=== PATIENT | male | born 1955 | race Hispanic/Latino ===

== ENCOUNTER 2019-02-27 11:08 | Inpatient (IN) | payer BC, OTHER ==
[2019-02-27 11:34] VITALS: BMI 24.2
[2019-02-27] MEDS ORDERED: Magnesium Sulfate 2 gm/50 ml 2 GM/50 ML BAG IVPB ONE (11:35)
[2019-02-27] MEDS: Albuterol-Ipratrop 3 mg / 0.5 (3 ml) UD IH SCH ×4 (11:45→19:56)
--- NOTE | 2019-02-27 11:50 | ED PDOC ---
Arrival/HPI - General Chief Complaint: Shortness Of Breath Time Seen by Provider: 02/27/19 11:20 Historian: Patient - History of Present Illness Narrative History of Present Illness (Text): 02/27/19 11:56 63 year old male, with a past medical history of COPD, Kidney cancer (surgery scheduled March 16), who presents to the emergency department complaining of shortness of breath and a productive cough for the past couple of days. Patient reports constant coughing after taking a couple of breaths and states, "mucous never goes away". He endorses taking a nebulizer at home, with no relief. Patient reports he was referred to the emergency department by his PCP, Dr. Baltazar. He denies any fever, chills, headaches, dizziness, nausea, vomiting, chest pain, or any other complaints. Patient was a previous smoker (20 years). PCP: Pranav Baltazar M.D Time/Duration: < week Symptom Onset: Gradual Symptom Course: Unchanged Activities at Onset: Light Context: Home Past Medical History - Provider Review Nursing Documentation Reviewed: Yes - Infectious Disease Hx of Infectious Diseases: None - Cardiac Hx Hypertension: Yes - Pulmonary Hx Chronic Obstructive Pulmonary Disease (COPD): Yes - Renal Other/Comment: kidney transplant - Endocrine/Metabolic Hx Endocrine Disorders: No - Hematological/Oncological Hx Cancer: Yes (Colon) - Psychiatric Hx Psychophysiologic Disorder: No Hx Substance Use: No - Surgical History Hx Kidney Transplant: Yes - Anesthesia Hx Anesthesia: Yes Hx Anesthesia Reactions: No - Suicidal Assessment Feels Threatened In Home Enviroment: No Family/Social History - Physician Review Nursing Documentation Reviewed: Yes Family/Social History: Unknown Family HX Smoking Status: Unknown If Ever Smoked Hx Alcohol Use: No Hx Substance Use: No Hx Substance Use Treatment: No Allergies/Home Meds Allergies/Adverse Reactions: Allergies No Known Allergies Allergy (Verified 02/27/19 15:20) Home Medications: Home Meds Medication Instructions Recorded Confirmed Finasteride [Proscar] 5 mg PO DAILY 02/27/19 02/27/19 Guaifenesin/Hydrocodone [Obredon 118 ml PO DAILY 02/27/19 02/27/19 200 mg/5 ml-2.5 mg/5 ml 118 ml] Omeprazole 20 mg PO DAILY 02/27/19 02/27/19 Simvastatin [Zocor] 20 mg PO DAILY 02/27/19 02/27/19 Tacrolimus [Prograf] 1 mg PO QPM 02/27/19 02/27/19 Tacrolimus [Prograf] 2 mg PO QAM 02/27/19 02/27/19 Tamsulosin [Flomax] 0.4 mg PO DAILY 02/27/19 02/27/19 Valsartan [Diovan] 80 mg PO DAILY 02/27/19 02/27/19 amLODIPine [Norvasc] 5 mg PO BID 02/27/19 02/27/19 predniSONE [predniSONE Tab] 5 mg PO DAILY 02/27/19 02/27/19 Review of Systems - Physician Review All systems were reviewed & negative as marked: Yes - Review of Systems Constitutional: absent: Fevers Respiratory: SOB, Cough Cardiovascular: absent: Chest Pain Gastrointestinal: absent: Abdominal Pain, Diarrhea, Nausea, Vomiting Musculoskeletal: absent: Back Pain, Neck Pain Neurological: absent: Headache, Dizziness Endocrine: absent: Diaphoresis Physical Exam Vital Signs Reviewed: Yes Vital Signs Temp Pulse Resp BP Pulse Ox 02/27/19 11:24 99.4 F 103 H 18 143/72 95 Temperature: Afebrile Blood Pressure: Normal Pulse: Tachycardic Respiratory Rate: Normal Appearance: Positive for: Well-Appearing, Non-Toxic, Comfortable Pain Distress: None Mental Status: Positive for: Alert and Oriented X 3 - Systems Exam Head: Present: Atraumatic, Normocephalic Pupils: Present: PERRL Extroacular Muscles: Present: EOMI Conjunctiva: Present: Normal Mouth: Present: Moist Mucous Membranes Neck: Present: Normal Range of Motion Respiratory/Chest: Present: Rhonchi (Rhonchi on left base). No: Respiratory Distress, Accessory Muscle Use Cardiovascular: Present: Regular Rate and Rhythm, Normal S1, S2. No: Murmurs Abdomen: No: Tenderness, Distention, Peritoneal Signs Back: Present: Normal Inspection Upper Extremity: Present: Normal Inspection. No: Cyanosis, Edema Lower Extremity: Present: Normal Inspection. No: Edema Neurological: Present: GCS=15, CN II-XII Intact, Speech Normal Skin: Present: Warm, Dry, Normal Color. No: Rashes Psychiatric: Present: Alert, Oriented x 3, Normal Insight, Normal Concentration Medical Decision Making ED Course and Treatment: 02/27/19 11:47 Impression: 63 year old male presents to the emergency department complaining of SOB, and a productive cough x couple of days. Differential Diagnosis included but are not limited to: Plan: -- EKG -- Labs -- Chest X-ray -- Urinalysis -- Albuterol -- Magnesium sulfate -- SOLU-Medrol -- Blood culture -- Reassess and disposition Prior Visits: Notes and results from previous visits were reviewed. Progress Notes: 02/27/19 11:53 EKG reviewed, shows: Sinus tachycardia at 103, normal axis. 02/27/19 13:27 Spoke with Pranav Baltazar M.D, who is aware and agrees with the plan to admit patient. 02/27/19 13:34 CT chest reviewed by radiologist, shows: - There is a 6 cm diameter heterogeneous mass in the left kidney suspicious for renal neoplasm. There are no prior studies for comparison - No evidence of pulmonary embolus - There is linear consolidation or scarring at the right lung base. There is a mildly enlarged right hilar lymph node. Chest X-Ray reviewed by radiologist, shows: - Curvilinear opacity at the right lung base possibly related to pneumonia. Recommend correlation with CTA chest scheduled to follow. - RAD Interpretation Radiology Orders: 02/27/19 11:34 CHEST PORTABLE [RAD] Stat - Medication Orders Current Medication Orders: Albuterol/Ipratropium (Duoneb 3 Mg/0.5 Mg (3 Ml) Ud) 3 ml IH Q15M ROSALES Stop: 02/27/19 12:16 Magnesium Sulfate (Magnesium Sulfate 2 Gm/50 Ml Water) 2 gm in 50 mls @ 50 mls/hr IVPB ONCE ONE Stop: 02/27/19 12:34 Discontinued Medications Methylprednisolone (Solu-Medrol) 125 mg IVP STAT STA Stop: 02/27/19 11:36 - Scribe Statement The provider has reviewed the documentation as recorded by the Rayray Butler Provider Scribe Attestation: All medical record entries made by the Scribe were at my direction and personally dictated by me. I have reviewed the chart and agree that the record accurately reflects my personal performance of the history, physical exam, medical decision making, and the department course for this patient. I have also personally directed, reviewed, and agree with the discharge instructions and disposition. Disposition/Present on Arrival - Present on Arrival Any Indicators Present on Arrival: No History of DVT/PE: No History of Uncontrolled Diabetes: No Urinary Catheter: No History of Decub. Ulcer: No History Surgical Site Infection Following: None - Disposition Have Diagnosis and Disposition been Completed?: Yes Diagnosis: COPD exacerbation Disposition: HOSPITALIZED Disposition Time: 13:00 Condition: FAIR
[2019-02-27 12:15] LABS: HEMOGLOBIN 12.9 g/dL (14.0-18.0); LYMPH # 1.1 (1.2-3.4); LYMPH % 7.3 % (22.0-35.0); MEAN CELL VOLUME 83.6 fl (80.0-105.0); MEAN CORPUSCULAR HEMOGLOBIN 27.9 pg (25.0-35.0); MEAN CORPUSCULAR HGB CONC 33.3 g/dl (31.0-37.0); MEAN PLATELET VOLUME 9.3 fl (7.0-11.0); MONO # 1.2 (0.1-0.6); MONO % 7.5 % (1.0-6.0); RBC 4.63 10^6/uL (3.5-6.1); RED CELL DISTRIBUTION WIDTH 13.9 % (11.5-14.5); WHITE BLOOD COUNT 15.7 10^3/uL (4.5-11.0)
[2019-02-27 12:26] LABS: ALB/GLOB RATIO 1.3 (1.1-1.8); ALBUMIN 4.2 g/dL (3.0-4.8); ALT/SGPT 16 U/L (7-56); AST/SGOT 24 U/L (17-59); BLOOD UREA NITROGEN 26 mg/dL (7-21); CALCIUM 9.3 mg/dL (8.4-10.5); GFR NON-AFRICAN AMERICAN > 60
[2019-02-27 12:38] LABS: B-TYPE NATRIURETIC PEPTIDE 178 pg/mL (0-450); TROPONIN I < 0.01 ng/mL
[2019-02-27] MEDS ORDERED: Iohexol 350 MG/100 ML VIAL ONE (12:46)
--- NOTE | 2019-02-27 13:02 | RAD ---
HISTORY: cough r/o infiltrate COMPARISON: Chest x-ray performed 12/04/12 TECHNIQUE: Chest, one view. FINDINGS: LUNGS: Curvilinear opacity at the right lung base possibly related to pneumonia. PLEURA: No significant pleural effusion identified. No definite pneumothorax . CARDIOVASCULAR: The cardiomediastinal silhouette appears within normal limits of size. Faint atherosclerotic calcification present. OSSEOUS STRUCTURES: No acute osseous abnormality identified. VISUALIZED UPPER ABDOMEN: Unremarkable. OTHER FINDINGS: None. IMPRESSION: Curvilinear opacity at the right lung base possibly related to pneumonia. Recommend correlation with CTA chest scheduled to follow.
--- NOTE | 2019-02-27 13:22 | CT ---
Date of service: 02/27/2019 PROCEDURE: CT Chest with contrast (Pulmonary Angiogram) HISTORY: SOB r/o PE - h/o colon cancer COMPARISON: None available. TECHNIQUE: Axial computed tomography images were obtained of the chest in the pulmonary arterial phase of enhancement. Coronal and sagittal reformatted images were created and reviewed. Intravenous contrast dose: 100 cc of Omni 350 Radiation dose: Total exam DLP = 425.15 mGy-cm. This CT exam was performed using one or more of the following dose reduction techniques: Automated exposure control, adjustment of the mA and/or kV according to patient size, and/or use of iterative reconstruction technique. FINDINGS: PULMONARY ARTERIES: Unremarkable. No pulmonary embolism. AORTA: No acute findings. No thoracic aortic aneurysm. Aortic and coronary artery calcification LUNGS: There is linear consolidation or scarring at the right lung base. There is a mildly enlarged right hilar lymph node PLEURAL SPACES: Unremarkable. No effusion or pneumothorax. HEART: Unremarkable. No cardiomegaly. No significant pericardial effusion. LYMPH NODES: No lymphadenopathy. BONES, CHEST WALL: Unremarkable. No fracture or destructive lesion OTHER FINDINGS: There is a 6 cm diameter heterogeneous mass in the left kidney suspicious for renal neoplasm. There are no prior studies for comparison IMPRESSION: There is a 6 cm diameter heterogeneous mass in the left kidney suspicious for renal neoplasm. There are no prior studies for comparison No evidence of pulmonary embolus There is linear consolidation or scarring at the right lung base. There is a mildly enlarged right hilar lymph node
[2019-02-27] MEDS ORDERED: cefTRIAXone 1 gm 1 GM/100 ML BAG IVPB STA (13:29)
[2019-02-27] MEDS ORDERED: Azithromycin 500MG/NS 250ml 500 MG/250 ML BAG IVPB STA (13:29)
--- NOTE | 2019-02-27 15:37 | CARD ---
APPROVED REPORT Date of service: 02/27/2019 EKG Measurement Heart [id number] CT [id number] [id number] <Conclusion> Sinus tachycardia Inferior infarct, age undetermined Abnormal ECG
[2019-02-27] MEDS ORDERED: Pneumococcal 23-Valent Vaccine IM ONE (19:31)
[2019-02-27] MEDS ORDERED: Influenza Vaccine 60 mcg/0.5 mL SYR (4YR UP) IM ONE (19:31)
[2019-02-28] MEDS: Albuterol-Ipratrop 3 mg / 0.5 (3 ml) UD IH SCH ×4 (01:10→21:10)
--- NOTE | 2019-02-28 02:20 | HP ---
DATE OF EXAM: 02/27/2019 HISTORY OF PRESENT ILLNESS: The patient is a 63-year-old white male seen in the office today and sent to the emergency room. The patient has approximately 1 to 2 week history of severe fatigue, severe cough, sputum production, dyspnea on exertion . The patient recently was found by Dr. Stevens on colonoscopy to have a transverse colon mass. PAST MEDICAL HISTORY: The patient has a history of a nephrectomy and renal failure and transplant. The patient has a history of COPD and asthma in the past and mild hypertension in the past. MEDICATIONS: The patient has been taking Flomax, amlodipine, albuterol, and losartan at home. SOCIAL HISTORY: The patient is a nonsmoker and nondrinker. He is taking medication for prevention of kidney transplant rejection. REVIEW OF SYSTEMS: CONSTITUTIONAL: Positive for shortness of breath, cough, sputum production, and fatigue. CARDIAC: Negative for palpitation or chest pain. GASTROINTESTINAL: Negative for nausea, vomiting, or diarrhea. GENITOURINARY: Negative for frequency, urgency, or hematuria. NEUROLOGIC: Negative for syncope, headache, or dizziness. PHYSICAL EXAMINATION: GENERAL: The patient is a poorly developed thin white male in moderate respiratory distress. HEENT: Essentially within normal limits. HEART: Regular sinus rhythm without S3, S4 or murmur. CHEST: Show rhonchi at both bases. Decreased breath sounds at both bases. Wheezing bilaterally. ABDOMEN: Benign. Liver is palpable, right lower quadrant kidney transplant. Abdomen is soft. Bowel sounds are normoactive. EXTREMITIES: Without cyanosis, clubbing, or edema. NEUROLOGIC: Grossly intact. IMPRESSION AND PLAN: This is a 63-year-old white male presenting with a new renal mass, history of kidney transplant, transverse colon carcinoma, cough with sputum production, shortness of breath, chronic obstructive pulmonary disease, hypertension, renal insufficiency with possible pneumonia and impending respiratory failure. Pranav Baltazar MD
[2019-02-28] MEDS: Pantoprazole 20 mg EC Tab PO SCH (06:54)
[2019-02-28] MEDS ORDERED: Azithromycin 250 MG in Sodium Chloride 0.9% 250 ML IVPB SCH (10:00)
[2019-02-28] MEDS ORDERED: cefTRIAXone 1 gm 1 GM/100 ML BAG IVPB SCH (10:00)
--- NOTE | 2019-02-28 12:30 | CP.PCM.CON ---
History of Present Illness - History of Present Illness History of Present Illness: General Surgery Consult note for Dr. Bowden-Dinorah Mckee, PGY-2 Pt seen/examined at bedside 63M w/hx of renal failure s/p R renal transplant and transverse colon mass recently found on colonoscopy (02/03). Pt reports already being scheduled for surgery with Dr. Bowden for transverse colon mass excision, however was admitted to hospital for severe weakness, fatigue, SOB, and CENTENO. Pt reports intentional wt loss of 7-8 lbs over past month due to dietary changes, states that his stool caliber is thinner than normal. Denies F & C, constipation, diarrhea, back pain, abdominal pain, N & V, CP, night sweats, unintentional wt loss, numbness or tingling, changes in urinary habits, melena, hematochezia, hematuria. CT chest with findings of 6cm L renal mass. PMH: Renal failure (b/L), Hx L adrenal mass, COPD, HTN, BPH, HLD PSH: Right pelvic renal transplant, L adrenal mass excision, Right ventral hernia repair All: NKDA SH: Hx of tobacco use- 2ppd x ~20 yrs, quit in 1990, ETOH use: 2-3 beers weekly, denies illicit drugs FH: Adopted- biological father and mother both from lung issues, brother had early [place] GI: Stevens PMD: Delaney Review of Systems - Review of Systems All systems: reviewed and no additional remarkable complaints except - Constitutional Constitutional: Fatigue, Weight Loss (intentional). absent: Chills, Fever, Night Sweats, Weight Gain - EENT Nose/Mouth/Throat: absent: Neck Pain - Cardiovascular Cardiovascular: Dyspnea on Exertion. absent: Chest Pain, Diaphoresis - Respiratory Respiratory: Cough, Dyspnea, Dyspnea on Exertion - Gastrointestinal Gastrointestinal: Change in Stool Character. absent: Abdominal Pain, Belching, Bloating, Constipation, Diarrhea, Hematemesis, Hematochezia, Loose Stools, Melena, Nausea, Vomiting - Genitourinary Genitourinary: Change in Urinary Stream - Musculoskeletal Musculoskeletal: absent: Back Pain - Integumentary Integumentary: absent: Rash - Neurological Neurological: Abnormal Hearing (decreased, has hearing aides) - Psychiatric Psychiatric: absent: Abnormal Sleep Pattern Past Patient History - Infectious Disease Hx of Infectious Diseases: None - Past Social History Smoking Status: Unknown If Ever Smoked - CARDIAC Hx Hypertension: Yes - PULMONARY Hx Chronic Obstructive Pulmonary Disease (COPD): Yes - NEUROLOGICAL Hx Neurological Disorder: Yes - HEENT Hx HEENT Problems: Yes Hx Deafness: Yes (LEFT EAR) - RENAL Other/Comment: kidney transplant - ENDOCRINE/METABOLIC Hx Endocrine Disorders: No - HEMATOLOGICAL/ONCOLOGICAL Hx Cancer: Yes (Colon) - INTEGUMENTARY Hx Dermatological Problems: No - MUSCULOSKELETAL/RHEUMATOLOGICAL Hx Musculoskeletal Disorders: No Hx Falls: No - GASTROINTESTINAL Hx Gastrointestinal Disorders: Yes (COLON CA) - GENITOURINARY/GYNECOLOGICAL Hx Genitourinary Disorders: Yes Hx Prostate Problems: Yes (BPH) - PSYCHIATRIC Hx Psychophysiologic Disorder: No Hx Substance Use: No - SURGICAL HISTORY Hx Kidney Transplant: Yes - ANESTHESIA Hx Anesthesia: Yes Hx Anesthesia Reactions: No Meds Allergies/Adverse Reactions: Allergies Allergy/AdvReac Type Severity Reaction Status Date / Time No Known Allergies Allergy Verified 02/27/19 15:20 - Medications Medications: Current Medications Albuterol/Ipratropium (Duoneb 3 Mg/0.5 Mg (3 Ml) Ud) 3 ml IH [id number] [facility] Last Admin: 02/28/19 07:24 Dose: 3 ml Amlodipine Besylate (Norvasc) 5 mg PO 0600 ROSALES Last Admin: 02/28/19 05:59 Dose: 5 mg Amlodipine Besylate (Norvasc) 5 mg PO QPM ROSALES Last Admin: 02/27/19 22:12 Dose: Not Given Atorvastatin Calcium (Lipitor) 10 mg PO DIN ROSALES Doxycycline Hyclate (Doryx) 100 mg PO Q12 ROSALES; Protocol Stop: 03/09/19 12:07 Finasteride (Proscar) 5 mg PO QPM ROSALES Last Admin: 02/27/19 21:37 Dose: 5 mg Cefepime HCl (Maxipime 1gm) 1 gm in 100 mls @ 100 mls/hr IVPB Q8 ROSALES; Protocol Stop: 03/09/19 12:07 Losartan Potassium (Cozaar) 50 mg PO QPM ROSALES Last Admin: 02/27/19 21:38 Dose: 50 mg Methylprednisolone (Solu-Medrol) 60 mg IVP Q12 ROSALES Last Admin: 02/28/19 10:54 Dose: 60 mg Pantoprazole Sodium (Protonix Ec Tab) 20 mg PO ACB [facility]ALES Last Admin: 02/28/19 06:54 Dose: 20 mg Prednisone (Prednisone Tab) 5 mg PO 0600 [facility] Last Admin: 02/28/19 06:01 Dose: 5 mg Tacrolimus (Prograf Cap) 1 mg PO QPM [facility] Last Admin: 02/27/19 21:37 Dose: 1 mg Tacrolimus (Prograf Cap) 2 mg PO 0600 [facility] Last Admin: 02/28/19 06:01 Dose: 2 mg Tamsulosin HCl (Flomax) 0.4 mg PO QPM [facility] Last Admin: 02/27/19 21:37 Dose: 0.4 mg Physical Exam - Constitutional Appears: Non-toxic, No Acute Distress - Head Exam Head Exam: ATRAUMATIC, NORMAL INSPECTION, NORMOCEPHALIC - Eye Exam Eye Exam: EOMI, Normal appearance - ENT Exam ENT Exam: Mucous Membranes Moist, Normal Exam - Neck Exam Neck exam: Positive for: Full Rom, Normal Inspection - Respiratory Exam Respiratory Exam: Clear to Auscultation Bilateral, NORMAL BREATHING PATTERN. absent: Accessory Muscle Use, Rales, Wheezes - Cardiovascular Exam Cardiovascular Exam: REGULAR RHYTHM, +S1, +S2 - GI/Abdominal Exam GI & Abdominal Exam: Soft. absent: Distended, Firm, Guarding, Rigid, Tenderness Additional comments: well healed midline scar, well healed Right abdominal scars x 2 Results - Vital Signs Recent Vital Signs: Last Vital Signs Temp 97.4 F L 02/28/19 06:00 Pulse 83 02/28/19 06:00 Resp 20 02/28/19 06:00 BP 105/67 02/28/19 06:00 Pulse Ox 95 02/28/19 06:00 - Labs Result Diagrams: 02/27/19 11:50 02/27/19 11:50 Labs: Laboratory Results - last 24 hr 02/27/19 11:50 Sodium 137 Potassium 4.2 Chloride 104 Carbon Dioxide 19 L Anion Gap 17 BUN 26 H Creatinine 1.2 Est GFR ( Amer) > 60 Est GFR (Non-Af Amer) > 60 Random Glucose 139 H Calcium 9.3 Magnesium 1.3 L Total Bilirubin 2.1 H AST 24 ALT 16 Alkaline Phosphatase 96 Lactate Dehydrogenase 439 Total Creatine Kinase 84 Troponin I < 0.01 NT-Pro-B Natriuret Pep 178 Total Protein 7.3 Albumin 4.2 Globulin 3.2 Albumin/Globulin Ratio 1.3 Assessment & Plan - Assessment and Plan (Free Text) Assessment: 63M w/transverse colon mass on colonoscopy and L renal mass of non-functioning kidney Plan: Recommend urology consult for L renal mass As per Dr. Baltazar- Dr. Mechelle Brown consulted- spoke with Dr. Brown, to see the patient 03/01 for evaluation Plan for transverse colon mass surgery after recs from urologist Further care as per primary team DW Dr. Kal Mckee, PGY-2 - Date & Time Date: 02/28/19 Time: 12:45
--- NOTE | 2019-02-28 14:03 | PN ---
DATE: 02/28/2019 SUBJECTIVE: A 63-year-old white male admitted to the hospital with exacerbation of COPD, coughing, sputum production, and shortness of breath. The patient is markedly improved this morning. He still has a productive cough. He is on antibiotics and steroids. The patient does have a lesion, which was found on colonoscopy. The patient also was recently found to have a renal mass. The patient is status post renal transplant. PHYSICAL EXAMINATION: VITAL SIGNS: Stable. ASSESSMENT AND PLAN: Doing well. He is afebrile this morning. We will continue IV antibiotics, bronchodilators, and steroids, and follow the patient and also evaluate the patient for possible nephrectomy and colon resection. Pranav Baltazar MD
--- NOTE | 2019-02-28 14:24 | CON ---
DATE OF CONSULTATION: 02/28/2019 The patient is seen in room 575, bed 1. CHIEF COMPLAINT: Cough and low-grade fever and shortness of breath times several days. HISTORY OF PRESENT ILLNESS: This is a 63-year-old male, who has a history of chronic obstructive lung disease, who had kidney cancer and the patient had nephrectomy. The patient is also with a renal transplant. The renal transplant was 5 years ago, on immunosuppression, and medications of tacrolimus, the patient with chronic obstructive lung disease and hypertension, who is admitted now and found to have pneumonia. Infectious Disease consultation requested. REVIEW OF SYSTEMS: Reveals the patient does have cough and it is nonproductive, and he had no fevers, no chills, no headaches, no dizziness, and no nausea or vomiting. He denies any chest pain. He does have shortness of breath. No abdominal pain or diarrhea. No dysuria or frequency. Review of systems reveals a 12-point review of systems performed. PAST MEDICAL HISTORY: Significant for hypertension and colon cancer. The patient had also nephrectomy and tonsillectomy. The patient is also with BPH. PAST SURGICAL HISTORY: Significant for tonsillectomy. ALLERGIES: THE PATIENT HAS NO KNOWN ALLERGIES. MEDICATIONS: Reviewed, include tacrolimus, prednisone, Diovan, omeprazole, Norvasc. PHYSICAL EXAMINATION: GENERAL: The patient is in bed. The patient's daughter is at the bedside, and his girlfriend is also at the bedside. He is answering questions appropriately. VITAL SIGNS: Temperature of 99.8, blood pressure is 121/71, respiratory rate of 20, heart rate of 93, it was up to 103. HEENT: Examination of HEENT is unremarkable. NECK: Supple. LUNGS: Have decreased breath sounds. HEART: Normal S1, S2. ABDOMEN: Soft, nontender. No organomegaly, no rebound. LABORATORY DATA: Laboratory examination reveals a white count of 15,700, hemoglobin of 12, platelets of 230. Chemistries revealed a BUN of 26, creatinine of 1.2. Microbiology reveals the blood cultures thus far are negative. Dr. Baltazar's history and physical examination is reviewed. Nursing evaluation is reviewed, which includes a colon cancer. The patient had a CAT scan of the chest, which revealed a 6 cm diameter mass in the left kidney suspicious for neoplasm and a linear consolidation in the right lung base, mild enlarged right hilar lymph node. Chest x-ray is reported to be negative. Emergency room chart is reviewed. ASSESSMENT AND PLAN: A 63-year-old male with chronic obstructive lung disease, asthma, hypertension, BPH, renal transplant 5 years ago, who was admitted with cough, tachycardia, leukocytosis, and infiltrate. 1. Sepsis with healthcare-associated pneumonia in an immunocompromised patient. We will treat the patient with Maxipime and doxycycline. The patient has a transverse colon mass and a renal mass requiring surgery for both. We will check blood cultures, sputum cultures, methicillin-resistant Staphylococcus aureus screen, urine for Legionella antigen, procalcitonin, and treat the patient with doxycycline and Maxipime. We will follow with you. Layo Seymour MD
[2019-02-28] MEDS: Cefepime 1gm in NS 100ml 1 GM/100 ML BAG IVPB SCH ×3 (17:15→22:39)
[2019-02-28 19:02] LABS: URINE BILIRUBIN NEGATIVE (NEGATIVE); URINE BLOOD NEGATIVE (NEGATIVE); URINE GLUCOSE (UA) 500 mg/dL (NEGATIVE); URINE LEUKOCYTE ESTERASE NEGATIVE Leu/uL (NEGATIVE); URINE PROTEIN TRACE mg/dL (<30 mg/dL); URINE UROBILINOGEN 0.2 E.U./dL (<1 E.U./dL)
[2019-02-28 19:04] LABS: URINE COLOR YELLOW (YELLOW)
[2019-02-28 19:05] LABS: URINE APPEARANCE CLEAR (CLEAR)
[2019-03-01] MEDS: Albuterol-Ipratrop 3 mg / 0.5 (3 ml) UD IH SCH ×4 (02:00→21:19)
[2019-03-01] MEDS: Cefepime 1gm in NS 100ml 1 GM/100 ML BAG IVPB SCH ×3 (06:03→21:44)
[2019-03-01] MEDS: Pantoprazole 20 mg EC Tab PO SCH (06:38)
--- NOTE | 2019-03-01 08:28 | CP.PCM.PN ---
Subjective - Date & Time of Evaluation Date of Evaluation: 03/01/19 Time of Evaluation: 07:00 - Subjective Subjective: General surgery progress not for Dr. Humberto Mckee, PGY-2 Pt seen/examined at bedside with surgical team Pt reports improved breathing. Denies N & V, F & C, CP, abdominal pain, constipation, diarrhea. Having BMs. Objective - Vital Signs/Intake and Output Vital Signs (last 24 hours): Temp Pulse Resp BP Pulse Ox 97.7 F 80 20 112/56 L 98 03/01/19 06:00 03/01/19 06:00 03/01/19 06:00 03/01/19 06:00 03/01/19 06:00 Intake and Output: 03/01/19 03/01/19 06:59 18:59 Intake Total 120 Balance 120 - Medications Medications: Current Medications Albuterol/Ipratropium (Duoneb 3 Mg/0.5 Mg (3 Ml) Ud) 3 ml IH [id number] ROSALES Last Admin: 03/01/19 08:11 Dose: 3 ml Amlodipine Besylate (Norvasc) 5 mg PO 0600 [facility] Last Admin: 03/01/19 05:59 Dose: 5 mg Amlodipine Besylate (Norvasc) 5 mg PO QPM [facility] Last Admin: 02/28/19 18:03 Dose: 5 mg Atorvastatin Calcium (Lipitor) 10 mg PO DIN [facility]AL[facility] Last Admin: 02/28/19 17:13 Dose: 10 mg Doxycycline Hyclate (Doryx) 100 mg PO Q12 [facility]AL[facility]; Protocol Stop: 03/09/19 12:07 Last Admin: 02/28/19 21:48 Dose: 100 mg Finasteride (Proscar) 5 mg PO QPM [facility] Last Admin: 02/28/19 18:15 Dose: 5 mg Cefepime HCl (Maxipime 1gm) 1 gm in 100 mls @ 100 mls/hr IVPB Q8 [facility]AL[facility]; Protocol Stop: 03/09/19 12:07 Last Admin: 03/01/19 06:03 Dose: 100 mls/hr Losartan Potassium (Cozaar) 50 mg PO QPM [facility] Last Admin: 02/28/19 18:30 Dose: 50 mg Methylprednisolone (Solu-Medrol) 60 mg IVP Q12 [facility] Last Admin: 02/28/19 22:33 Dose: 60 mg Pantoprazole Sodium (Protonix Ec Tab) 20 mg PO ACB [facility] Last Admin: 03/01/19 06:38 Dose: 20 mg Prednisone (Prednisone Tab) 5 mg PO 0600 [facility] Last Admin: 03/01/19 05:59 Dose: 5 mg Tacrolimus (Prograf Cap) 1 mg PO QPM [facility] Last Admin: 02/28/19 18:01 Dose: 1 mg Tacrolimus (Prograf Cap) 2 mg PO 0600 [facility] Last Admin: 03/01/19 06:02 Dose: 2 mg Tamsulosin HCl (Flomax) 0.4 mg PO QPM [facility] Last Admin: 02/28/19 18:31 Dose: 0.4 mg - Labs Labs: 02/27/19 11:50 02/27/19 11:50 - Constitutional Appears: Non-toxic, No Acute Distress - Head Exam Head Exam: ATRAUMATIC, NORMAL INSPECTION, NORMOCEPHALIC - Eye Exam Eye Exam: EOMI, Normal appearance - ENT Exam ENT Exam: Mucous Membranes Moist - Respiratory Exam Respiratory Exam: NORMAL BREATHING PATTERN. absent: Accessory Muscle Use - Cardiovascular Exam Cardiovascular Exam: REGULAR RHYTHM, +S1, +S2 - GI/Abdominal Exam GI & Abdominal Exam: Soft. absent: Distended, Firm, Guarding, Rigid, Tenderness, Mass - Extremities Exam Extremities Exam: Normal Inspection - Neurological Exam Neurological Exam: Alert, Awake, CN II-XII Intact, Oriented x3 - Psychiatric Exam Psychiatric exam: Normal Affect, Normal Mood - Skin Skin Exam: Dry, Intact, Normal Color, Warm Assessment and Plan - Assessment and Plan (Free Text) Assessment: 63M w/transverse colon mass on colonoscopy and L renal mass of non-functioning kidney, stable overnight Plan: FU Uro c/s recs Plan for transverse colon mass surgery after recs from urologist Further care as per primary team DW Dr. Kal Mckee, PGY-2
--- NOTE | 2019-03-01 12:42 | PN ---
DATE: 03/01/2019 SUBJECTIVE: A 63-year-old white male with a history of COPD, status post renal transplant, immunocompromised because of the anti-rejection medications, recently found to have a transverse colon lesion consistent with adenocarcinoma. He also has a 6 cm renal mass in the c[place]il dehe kidney. The patient is here for exacerbation of bronchitis, possible pneumonia, being treated with IV antibiotics, bronchodilators and steroids, doing well, improved, having good night. PHYSICAL EXAMINATION: VITAL SIGNS: Afebrile. Vital signs are stable. CHEST: Has some rhonchi on examination and some wheezing. ASSESSMENT AND PLAN: We will have a Urology consult for possible nephrectomy coordinated with removal of his transverse colon tumor. At this point, continue medications. Also, we will ask for a Pulmonary consult. Pranav Baltazar MD
--- NOTE | 2019-03-01 13:23 | PN ---
DATE: 03/01/2019 SUBJECTIVE: The patient is in bed in no acute distress, nontoxic. PHYSICAL EXAMINATION VITAL SIGNS: On exam temperature is 97, blood pressure is 112/50, respiratory rate 20 and heart rate of 80. HEENT: Unremarkable. NECK: Supple. LUNGS: Have decreased breath sounds. HEART: Normal S1 and S2. ABDOMEN: Soft. LABORATORY EXAMINATION: Reveals a white count of 15,700, hemoglobin of 12, and platelets of 230. Chemistries reveals a BUN of 26 and creatinine of 1.2. Procalcitonin is 0.13. Microbiology reveals the blood cultures are negative. Review of orders reveals the patient to be on p.o. doxycycline and IV cefepime and Solu-Medrol. ASSESSMENT AND PLAN: This is a 63-year-old male with a history of chronic obstructive lung disease, history of kidney cancer, history of nephrectomy, history of renal transplant 5 years ago on immunosuppression and medication tacrolimus, who was admitted with sepsis with healthcare associated pneumonia in a immunocompromised patient on Maxipime, doxycycline day #2. The patient with a transverse colon mass and a renal mass requiring surgery for both and would complete 4 to 7 days of antibiotics and the patient is doing better today. Waiting for final blood culture results, urine Legionella antigen, MRSA screen and sputum culture. Layo Seymour MD
[2019-03-02] MEDS: Albuterol-Ipratrop 3 mg / 0.5 (3 ml) UD IH SCH ×5 (01:40→21:45)
[2019-03-02] MEDS: Cefepime 1gm in NS 100ml 1 GM/100 ML BAG IVPB SCH ×3 (05:11→21:09)
[2019-03-02] MEDS ORDERED: Albuterol-Ipratrop 3 mg / 0.5 (3 ml) UD IH PRN (07:10)
[2019-03-02] MEDS: Budesonide 0.5 mg/2 ml Inhal Susp UD IH SCH ×2 (07:18→21:45)
[2019-03-02 08:02] LABS: HEMOGLOBIN 12.5 g/dL (14.0-18.0); MEAN CELL VOLUME 84.1 fl (80.0-105.0); MEAN CORPUSCULAR HGB CONC 33.2 g/dl (31.0-37.0); MEAN PLATELET VOLUME 9.3 fl (7.0-11.0); RBC 4.47 10^6/uL (3.5-6.1); RED CELL DISTRIBUTION WIDTH 13.8 % (11.5-14.5); WHITE BLOOD COUNT 14.9 10^3/uL (4.5-11.0)
[2019-03-02] MEDS: Pantoprazole 20 mg EC Tab PO SCH (08:02)
[2019-03-02 08:17] LABS: ALB/GLOB RATIO 1.3 (1.1-1.8); ALBUMIN 3.6 g/dL (3.0-4.8); ALT/SGPT 23 U/L (7-56); AST/SGOT 41 U/L (17-59); BLOOD UREA NITROGEN 29 mg/dL (7-21); CALCIUM 8.9 mg/dL (8.4-10.5); GFR NON-AFRICAN AMERICAN > 60
--- NOTE | 2019-03-02 08:21 | CON ---
DATE: 03/01/2019 PULMONARY CONSULTATION The patient was seen and examined at bedside and we were called to evaluate and treat this patient who was admitted with cough productive of mucopurulent sputum, shortness of breath and abnormalities on the chest x-ray which were confirmed on the CT scan of chest. HISTORY OF PRESENT ILLNESS: A 63-year-old male who is known to Dr. Baltazar from office followup. He has a history of nephrectomy and renal failure. He is status post transplant. He also has a history of asthma and COPD. He complained of increasing shortness of breath, cough productive of purulent sputum for 1-2 weeks. He also had a recent colonoscopy by Dr. Stevens and found to have a mass. SOCIAL HISTORY: Nonsmoker and nondrinker. Never used illicit drugs. MEDICATIONS: He is on Flomax, amlodipine, albuterol, losartan and immunosuppressives tacrolimus. FAMILY HISTORY: Negative for inherited diseases. REVIEW OF SYSTEMS: Conducted by reviewing all sources. CONSTITUTIONAL: Positive for shortness of breath, cough and sputum production. CARDIAC: Negative for chest pain. No palpitation. RESPIRATORY: Shortness of breath, productive cough GASTROINTESTINAL: Recently discovered colon mass. Negative for nausea, vomiting or diarrhea. GENITOURINARY: Negative for frequency, urgency or hematuria. The rest of the systems were reviewed and found to be negative. PHYSICAL EXAMINATION: VITAL SIGNS: Temperature 98.8, respirations 20, blood pressure 134/74, pulse 84 and pulse oxymetry on room air is 94%. HEAD, EARS, NOSE, AND THROAT: Within normal limits. NECK: Supple. There is no jugular vein distensions. CARDIOVASCULAR: Regular rate. S1 and S2. No S3. RESPIRATORY: Few basilar rhonchi, right more than left. No wheezing. GASTROINTESTINAL: Soft and nontender. No organomegaly. Scars from kidney transplant. : Within normal limits EXTREMITIES: No pedal edema. No cyanosis. NEUROLOGIC: No focal deficits. SKIN: Dry; intact RADIOLOGY DATA: I have reviewed the CT scan of chest which reveals normal appearing left lung. There is infiltrate and air bronchogram at very base of the right lung. ASSESSMENT: 1. Right basal pneumonia 2. Exacerbation of COPD 3. Kidney and Colon mass - work-up with PMD, Dr Baltazar Additional data reviewed. Laboratory data reviewed and discussed with Dr. Seymour Infectious Disease. We treating him with double antibiotics for right basal pneumonia which is symptomatic with cough and production of purulent sputum as well as shortness of breath. After 24 hours of treatment, the patient condition has started to improving. We will continue with current recommendation as well as nebulizer treatment. He has several additional problems that requires attention, kidney mass and colon mass. Brooks Batres MD MTDD
--- NOTE | 2019-03-02 08:23 | CP.PCM.PN ---
Subjective - Date & Time of Evaluation Date of Evaluation: 03/02/19 Time of Evaluation: 07:30 - Subjective Subjective: General Surgery progress note for Dr. Bowden Pt seen/examined at bedside with surgical team. Pt is resting comfortably. No complaints at this time. Denies fever, chills, chest pain, sob, abdominal pain, n/v/d, hematochezia, melena. Objective - Vital Signs/Intake and Output Vital Signs (last 24 hours): Temp Pulse Resp BP Pulse Ox 97.6 F 85 20 131/75 95 03/02/19 06:00 03/02/19 06:00 03/02/19 06:00 03/02/19 06:00 03/02/19 06:00 - Medications Medications: Current Medications Albuterol/Ipratropium (Duoneb 3 Mg/0.5 Mg (3 Ml) Ud) 3 ml IH [id number] ROSALES Last Admin: 03/02/19 07:19 Dose: 3 ml Albuterol/Ipratropium (Duoneb 3 Mg/0.5 Mg (3 Ml) Ud) 3 ml IH Q2H PRN PRN Reason: Shortness of Breath Amlodipine Besylate (Norvasc) 5 mg PO 0600 [facility]AL[facility] Last Admin: 03/02/19 05:12 Dose: 5 mg Amlodipine Besylate (Norvasc) 5 mg PO QPM [facility] Last Admin: 03/01/19 18:14 Dose: 5 mg Atorvastatin Calcium (Lipitor) 10 mg PO DIN [facility]AL[facility] Last Admin: 03/01/19 18:13 Dose: 10 mg Budesonide (Pulmicort Respules) 0.5 mg IH [id number] ROSALES Last Admin: 03/02/19 07:18 Dose: 0.5 mg Doxycycline Hyclate (Doryx) 100 mg PO Q12 [facility]ALES; Protocol Stop: 03/09/19 12:07 Last Admin: 03/01/19 21:44 Dose: 100 mg Finasteride (Proscar) 5 mg PO QPM [facility] Last Admin: 03/01/19 18:14 Dose: 5 mg Cefepime HCl (Maxipime 1gm) 1 gm in 100 mls @ 100 mls/hr IVPB Q8 [facility]ALES; Protocol Stop: 03/09/19 12:07 Last Admin: 03/02/19 05:11 Dose: 100 mls/hr Losartan Potassium (Cozaar) 50 mg PO QPM [facility] Last Admin: 03/01/19 18:13 Dose: 50 mg Methylprednisolone (Solu-Medrol) 60 mg IVP Q12 [facility] Last Admin: 03/01/19 21:45 Dose: 60 mg Pantoprazole Sodium (Protonix Ec Tab) 20 mg PO ACB [facility] Last Admin: 03/02/19 08:02 Dose: 20 mg Prednisone (Prednisone Tab) 5 mg PO 0600 [facility] Last Admin: 03/02/19 05:11 Dose: 5 mg Tacrolimus (Prograf Cap) 1 mg PO QPM [facility] Last Admin: 03/01/19 18:14 Dose: 1 mg Tacrolimus (Prograf Cap) 2 mg PO 0600 [facility] Last Admin: 03/02/19 05:11 Dose: 2 mg Tamsulosin HCl (Flomax) 0.4 mg PO QPM [facility] Last Admin: 03/01/19 18:14 Dose: 0.4 mg - Labs Labs: 03/02/19 07:45 03/02/19 07:45 - Constitutional Appears: Non-toxic, No Acute Distress - Head Exam Head Exam: ATRAUMATIC, NORMAL INSPECTION - Eye Exam Eye Exam: EOMI - ENT Exam ENT Exam: Mucous Membranes Moist - Cardiovascular Exam Cardiovascular Exam: REGULAR RHYTHM, +S1, +S2 - GI/Abdominal Exam GI & Abdominal Exam: Soft, Normal Bowel Sounds. absent: Distended, Firm, Guarding, Rigid, Tenderness Additional comments: (+) rlw renal transplant is palpable, nontender - Extremities Exam Extremities Exam: Normal Capillary Refill. absent: Calf Tenderness, Pedal Edema - Neurological Exam Neurological Exam: Alert, Awake - Psychiatric Exam Psychiatric exam: Normal Affect, Normal Mood - Skin Skin Exam: Dry, Normal Color, Warm Assessment and Plan - Assessment and Plan (Free Text) Assessment: 63M w/transverse colon mass on colonoscopy and L renal mass of non-functioning kidney. Plan: Tolerating diet well, hemodynamically stable Follow up Uro consult recs Plan for transverse colon mass surgery after recs from urologist, Dr. Brown. Further care as per primary team Case discussed with Dr. Kal Ravi PGY1 Pager# [phone]
--- NOTE | 2019-03-02 11:10 | PN ---
DATE: 03/02/2019 SUBJECTIVE: The patient appears comfortable at rest. He is not short of breath. OBJECTIVE: VITALS: Temperature is 97.7, pulse 87, respirations 18, blood pressure 120/77. Oxygen saturation on room air 95%. HEENT: Normocephalic, atraumatic. No JVD. CARDIOVASCULAR: Positive S1, S2. No S3 gallop. LUNGS: Scattered bilateral rhonchi and a few wheezes are appreciated. EXTREMITIES: No clubbing, cyanosis, or edema. Calves are nontender to palpation. GASTROINTESTINAL: Abdomen is soft, nontender, and nondistended. Bowel sounds are positive. SKIN: No acute rash. NEUROLOGIC: Exam limited at the present time. IMPRESSION: 1. Acute bronchitis. 2. Chronic obstructive pulmonary disease. 3. Scar - right lower lobe. 4. Colon cancer. 5. Renal mass. PLAN: The patient appears comfortable this morning. He is not short of breath at rest. He does state to increase coughing at times. He does state to feeling much better overall. On physical exam, there is [id number] bronchospasm noted. However, there is no significant alveolar arterial gradient. I will continue the current nebulizer treatments and current intravenous steroids for now. I will also add inhaled Pulmicort. Hopefully, we can start tapering the steroids in the next 24 hours. I did review the CAT scan of the chest - done on 02/27/2019. There is a linear area of consolidation in the right lower lobe - most consistent with scarring. There are no air bronchograms noted. There is no significant lymphadenopathy. There is also a large renal mass. In addition, the procalcitonin done - negative (0.13). I would continue with the antibiotic coverage as per Infectious Disease. Temperatures have fully resolved. Repeat a.m. labs are pending. Inputs by Surgery and Genitourinary are also noted. Clinical status of the patient does appear improved - compared to the initial presentation. However, given the above, the future status/prognosis for this patient does remain guarded. I will discuss the above with Dr. Baltazar. Gonzales Woods MD [facility] # [id number] MTDD
--- NOTE | 2019-03-02 12:16 | PN ---
DATE: 03/02/2019 A 63-year-old white male admitted in the hospital with exacerbation of COPD; possible pneumonia; renal mass; transverse colon mass; history of renal transplant, on immunosuppressive drugs. The patient still has sputum production and cough, but he is afebrile today. Vital signs are stable. His white count is 14,900. His BUN and creatinine is 29 and 0.9. He is afebrile today. His blood pressure 131/75. He still has rales in the right upper and right lower base, but less coughing, less sputum production and he is afebrile. He is walking. Pranav Baltazar MD
--- NOTE | 2019-03-02 14:34 | PCM.URO ---
Urology Progress Note - Objective Lab Studies: Reviewed (full note to be dictatedd we need to see the gu imaging to decide a plan possible renal biopsy vs nephrectomy thanks for gu consult) Lab Results Last 24 Hours: Laboratory Results - last 24 hr 03/01/19 03/02/19 03/02/19 20:07 07:45 07:45 WBC 14.9 H RBC 4.47 Hgb 12.5 L Hct 37.6 L MCV 84.1 MCH 28.0 MCHC 33.2 RDW 13.8 Plt Count 258 MPV 9.3 Sodium 139 Potassium 4.4 Chloride 108 H Carbon Dioxide 21 Anion Gap 15 BUN 29 H Creatinine 0.9 Est GFR ( Amer) > 60 Est GFR (Non-Af Amer) > 60 Random Glucose 209 H Calcium 8.9 Magnesium 1.7 Total Bilirubin 0.4 AST 41 ALT 23 Alkaline Phosphatase 89 Total Protein 6.5 Albumin 3.6 Globulin 2.8 Albumin/Globulin Ratio 1.3 Ur L.pneumophila Ag Negative Intake & Output: Intake & Output 03/01/19 03/02/19 03/02/19 18:59 06:59 18:59 Intake Total 840 Balance 840 Weight 150 lb 12.8 oz Intake: Oral 840 Other: # Voids Urine, Voided 3 2 # Bowel Movements 2 Vital Signs: Vital Signs - 24 hr 03/01/19 03/01/19 03/02/19 18:13 22:00 05:12 Temperature 97.7 F Pulse Rate 93 H 87 87 Respiratory 18 Rate Blood Pressure 127/77 120/77 120/77 O2 Sat by Pulse 95 Oximetry 03/02/19 06:00 Temperature 97.6 F Pulse Rate 85 Respiratory 20 Rate Blood Pressure 131/75 O2 Sat by Pulse 95 Oximetry
--- NOTE | 2019-03-02 20:46 | CON ---
DATE: 03/02/2019 UROLOGY CONSULTATION REASON FOR CONSULTATION: Renal mass. HISTORY OF PRESENT ILLNESS: Mr. Galvez is a very pleasant gentleman who is currently in the hospital under the care of Dr. Baltazar, Urology is consulted regarding the management of "renal mass." Very complicated history, he has a history of adrenal mass that may have been removed, he does not picked out with any kind of cancer that he is back. He is not sure of all those details, will need to check. Right now, he presented that he has colon cancer diagnosed, any kind of surgery with Dr. Bowden on 03/16, but in the meantime, in the workup here on exam "renal mass," Urology is for recommendations. See below. PAST MEDICAL AND SURGICAL HISTORY: He has underlying respiratory difficulty. He has been seen by doctor and his medical doctor is Dr. Baltazar. REVIEW OF SYSTEMS: Listed above significant as noted. SOCIAL HISTORY: He works in a [employer] plant. PHYSICAL EXAMINATION: ABDOMEN: Relatively soft. Not grossly distended. RECTAL: Deferred for now. LABORATORY DATA: See tatiana. DIAGNOSIS: Renal mass in the presence of a colon cancer. PLAN: We have to discuss further options and some possibility to include a biopsy of the kidney to confirm whether it is a renal cell carcinoma or malignancy versus metastatic disease. We also need to evaluate for the possibility for nephrectomy, the possibility open versus robotic and the idea of the stating the patient separate anesthesia sitting versus increased length of time during surgery, redo weigh all these option, again robotic versus nonrobotic and any other important consideration is if the patient previously had an adrenalectomy to weigh this into account and making all recommendations for sparing the adrenal gland. This all need to be elucidated further. From Urology standpoint, we will review films, we will discuss further with Dr. Bowden and Dr. Baltazar. Guido Brown MD
--- NOTE | 2019-03-02 21:29 | CP.PCM.PN ---
Subjective - Date & Time of Evaluation Date of Evaluation: 03/02/19 Time of Evaluation: 07:55 - Subjective Subjective: Afebrile, not in distress. Objective - Vital Signs/Intake and Output Vital Signs (last 24 hours): Temp Pulse Resp BP Pulse Ox 98 F 84 20 144/84 95 03/02/19 15:12 03/02/19 18:05 03/02/19 15:12 03/02/19 18:05 03/02/19 15:12 Intake and Output: 03/02/19 03/03/19 18:59 06:59 Intake Total 600 Balance 600 - Medications Medications: Current Medications Albuterol/Ipratropium (Duoneb 3 Mg/0.5 Mg (3 Ml) Ud) 3 ml IH [id number] ROSALES Last Admin: 03/02/19 13:08 Dose: Not Given Albuterol/Ipratropium (Duoneb 3 Mg/0.5 Mg (3 Ml) Ud) 3 ml IH Q2H PRN PRN Reason: Shortness of Breath Amlodipine Besylate (Norvasc) 5 mg PO 0600 [facility] Last Admin: 03/02/19 05:12 Dose: 5 mg Amlodipine Besylate (Norvasc) 5 mg PO QPM [facility] Last Admin: 03/02/19 18:03 Dose: 5 mg Atorvastatin Calcium (Lipitor) 10 mg PO DIN [facility] Last Admin: 03/02/19 16:15 Dose: 10 mg Budesonide (Pulmicort Respules) 0.5 mg IH [id number] [facility]ALES Last Admin: 03/02/19 07:18 Dose: 0.5 mg Doxycycline Hyclate (Doryx) 100 mg PO Q12 [facility]AL[facility]; Protocol Stop: 03/09/19 12:07 Last Admin: 03/02/19 21:10 Dose: 100 mg Finasteride (Proscar) 5 mg PO QPM [facility] Last Admin: 03/02/19 18:04 Dose: 5 mg Cefepime HCl (Maxipime 1gm) 1 gm in 100 mls @ 100 mls/hr IVPB Q8 [facility]; Protocol Stop: 03/09/19 12:07 Last Admin: 03/02/19 21:09 Dose: 100 mls/hr Losartan Potassium (Cozaar) 50 mg PO QPM [facility] Last Admin: 03/02/19 18:05 Dose: 50 mg Methylprednisolone (Solu-Medrol) 60 mg IVP Q12 [facility] Last Admin: 03/02/19 21:09 Dose: 60 mg Pantoprazole Sodium (Protonix Ec Tab) 20 mg PO ACB [facility] Last Admin: 03/02/19 08:02 Dose: 20 mg Prednisone (Prednisone Tab) 5 mg PO 0600 [facility] Last Admin: 03/02/19 05:11 Dose: 5 mg Tacrolimus (Prograf Cap) 1 mg PO QPM [facility] Last Admin: 03/02/19 18:04 Dose: 1 mg Tacrolimus (Prograf Cap) 2 mg PO 0600 [facility] Last Admin: 03/02/19 05:11 Dose: 2 mg Tamsulosin HCl (Flomax) 0.4 mg PO QPM [facility] Last Admin: 03/02/19 18:05 Dose: 0.4 mg - Labs Labs: 03/02/19 07:45 03/02/19 07:45 - Constitutional Appears: Chronically Ill - Head Exam Head Exam: NORMAL INSPECTION - Respiratory Exam Respiratory Exam: Decreased Breath Sounds - Cardiovascular Exam Cardiovascular Exam: +S1, +S2 - GI/Abdominal Exam GI & Abdominal Exam: Soft. absent: Tenderness Assessment and Plan - Assessment and Plan (Free Text) Plan: Assessment Sepsis due to HCAP, clinically improving COPD renal cancer S/P nephrectomy and renal transplant history of transverse colon mass Plan continue Cefepime and Doxycycline day 3 for 4-7 days will monitor clinically
[2019-03-03] MEDS: Albuterol-Ipratrop 3 mg / 0.5 (3 ml) UD IH SCH ×4 (03:15→20:39)
[2019-03-03] MEDS: Cefepime 1gm in NS 100ml 1 GM/100 ML BAG IVPB SCH ×3 (06:28→21:56)
[2019-03-03] MEDS: Budesonide 0.5 mg/2 ml Inhal Susp UD IH SCH ×2 (07:19→20:39)
[2019-03-03 07:32] LABS: HEMOGLOBIN 12.8 g/dL (14.0-18.0); LYMPH # 0.6 (1.2-3.4); LYMPH % 4.4 % (22.0-35.0); MEAN CELL VOLUME 83.4 fl (80.0-105.0); MEAN CORPUSCULAR HEMOGLOBIN 27.5 pg (25.0-35.0); MEAN PLATELET VOLUME 9.5 fl (7.0-11.0); MONO # 0.6 (0.1-0.6); MONO % 4.3 % (1.0-6.0); PLATELET COUNT 268 10^3/uL (120.0-450.0); RBC 4.65 10^6/uL (3.5-6.1); RED CELL DISTRIBUTION WIDTH 13.7 % (11.5-14.5); WHITE BLOOD COUNT 13.6 10^3/uL (4.5-11.0)
[2019-03-03 07:46] LABS: ALB/GLOB RATIO 1.3 (1.1-1.8); ALBUMIN 3.7 g/dL (3.0-4.8); ALT/SGPT 27 U/L (7-56); AST/SGOT 20 U/L (17-59); BLOOD UREA NITROGEN 28 mg/dL (7-21); CALCIUM 9.2 mg/dL (8.4-10.5); GFR NON-AFRICAN AMERICAN > 60
[2019-03-03] MEDS: Pantoprazole 20 mg EC Tab PO SCH (07:54)
--- NOTE | 2019-03-03 08:20 | PN ---
DATE: 03/03/2019 SUBJECTIVE: The patient appears very comfortable this morning. He is not short of breath at rest. PHYSICAL EXAMINATION: VITAL SIGNS: Temperature is 97.6, pulse 81, respirations 18, blood pressure 147/76. Oxygen saturation on room air - 95%. HEENT: Normocephalic, atraumatic. No JVD. CARDIOVASCULAR: Positive S1, S2. No S3 gallop. LUNGS: Much less rhonchi. No wheezing this morning. EXTREMITIES: No clubbing, cyanosis or edema. Calves are nontender to palpation. GASTROINTESTINAL: Abdomen is soft, nontender and nondistended. Bowel sounds are positive. SKIN: No acute rash. NEUROLOGIC: Exam limited at the present time. IMPRESSION: 1. Acute bronchitis. 2. Chronic obstructive pulmonary disease. 3. Scar - right lower lobe. 4. Colon cancer. 5. Renal mass. PLAN: The patient appears very comfortable this morning. He is not short of breath at rest. His cough is much less. He does state to feeling much, much better overall. On physical exam, his bronchospasm is definitely less. In addition, the oxygen saturation on room air is 95%. I will continue the current nebulizer treatments and decrease the intravenous steroids this morning. The patient remains on antibiotic therapy - as per Infectious Disease. Input by Dr. Abdalla is noted. The temperatures have fully resolved. The leukocytosis is resolving. Inputs by Surgery and Genitourinary are also noted. Clinical status of the patient is certainly improved - compared to the initial presentation. However, given the above, the future status/prognosis for this patient does remain somewhat guarded. I will discuss the above with Dr. Baltazar. Gonzales Woods MD [id number]
--- NOTE | 2019-03-03 08:30 | CP.PCM.PN ---
Subjective - Date & Time of Evaluation Date of Evaluation: 03/03/19 Time of Evaluation: 08:00 - Subjective Subjective: PGY1 General Surgery Progress Note for Dr. Bowden Pt seen and examined at bedside. Pt is resting comfortably. No complaints at this time, but would like to know plan going forward. Denies fever, chills, chest pain, sob, abdominal pain, n/v/d, hematochezia, melena, hematuria, dysuria, lightheadedness, dizziness, headache, visual changes. Objective - Vital Signs/Intake and Output Vital Signs (last 24 hours): Temp Pulse Resp BP Pulse Ox 97.2 F L 81 18 147/76 98 03/03/19 08:05 03/03/19 08:05 03/03/19 08:05 03/03/19 08:05 03/03/19 08:05 Intake and Output: 03/03/19 03/03/19 06:59 18:59 Intake Total 840 Balance 840 - Medications Medications: Current Medications Albuterol/Ipratropium (Duoneb 3 Mg/0.5 Mg (3 Ml) Ud) [id number] [facility] Last Admin: 03/03/19 07:20 Dose: 3 ml Albuterol/Ipratropium (Duoneb 3 Mg/0.5 Mg (3 Ml) Ud) 3 ml IH Q2H PRN PRN Reason: Shortness of Breath Amlodipine Besylate (Norvasc) [address] [facility] Last Admin: 03/03/19 06:27 Dose: 5 mg Amlodipine Besylate (Norvasc) [address] [facility] Last Admin: 03/02/19 18:03 Dose: 5 mg Atorvastatin Calcium (Lipitor) [address] [facility] Last Admin: 03/02/19 16:15 Dose: 10 mg Budesonide (Pulmicort Respules) 0.[id number] [facility] Last Admin: 03/03/19 07:19 Dose: 0.5 mg Doxycycline Hyclate (Doryx) [address] [facility]; Protocol Stop: 03/09/19 12:07 Last Admin: 03/02/19 21:10 Dose: 100 mg Finasteride (Proscar) [address] [facility] Last Admin: 03/02/19 18:04 Dose: 5 mg Cefepime HCl (Maxipime 1gm) 1 gm in 100 mls @ 100 mls/hr IVPB Q8 [facility]; Protocol Stop: 03/09/19 12:07 Last Admin: 03/03/19 06:28 Dose: 100 mls/hr Losartan Potassium (Cozaar) [address] [facility] Last Admin: 03/02/19 18:05 Dose: 50 mg Methylprednisolone (Solu-Medrol) 40 mg IVP Q12 [facility] Pantoprazole Sodium (Protonix Ec Tab) [address] [facility] Last Admin: 03/03/19 07:54 Dose: 20 mg Prednisone (Prednisone Tab) [address] [facility] Last Admin: 03/03/19 06:27 Dose: 5 mg Tacrolimus (Prograf Cap) [address] [facility] Last Admin: 03/02/19 18:04 Dose: 1 mg Tacrolimus (Prograf Cap) [address] [facility] Last Admin: 03/03/19 06:28 Dose: 2 mg Tamsulosin HCl (Flomax) 0.[address] [facility] Last Admin: 03/02/19 18:05 Dose: 0.4 mg - Labs Labs: 03/03/19 07:00 03/03/19 07:00 - Constitutional Appears: Non-toxic, No Acute Distress - Head Exam Head Exam: ATRAUMATIC, NORMAL INSPECTION - Eye Exam Eye Exam: EOMI - ENT Exam ENT Exam: Mucous Membranes Moist - Respiratory Exam Respiratory Exam: Clear to Ausculation Bilateral, NORMAL BREATHING PATTERN. absent: Rales, Rhonchi, Wheezes, Respiratory Distress, Stridor - Cardiovascular Exam Cardiovascular Exam: REGULAR RHYTHM, +S1, +S2 - GI/Abdominal Exam GI & Abdominal Exam: Soft, Normal Bowel Sounds. absent: Distended, Firm, Guarding, Rigid, Tenderness Additional comments: (+) RLQ renal transplant is palpable, nontender - Extremities Exam Extremities Exam: Normal Capillary Refill, Normal Inspection. absent: Calf Tenderness, Pedal Edema, Tenderness - Back Exam Back Exam: NORMAL INSPECTION. absent: CVA tenderness (L), CVA tenderness (R) - Neurological Exam Neurological Exam: Alert, Awake - Psychiatric Exam Psychiatric exam: Normal Affect, Normal Mood - Skin Skin Exam: Dry, Normal Color, Warm Assessment and Plan - Assessment and Plan (Free Text) Assessment: 63M w/transverse colon mass on colonoscopy and L renal mass of non-functioning kidney. Plan: Tolerating diet well, hemodynamically stable Urology, Dr. Brown, is following the pt. Recommends renal biopsy, does not recommend joint colon and renal surgery. Plan for transverse colon mass surgery after recs from urologist, Dr. Brown. Further care as per primary team Further recommendations as per Dr. Kal Ravi PGY1 Pager# [phone]
[2019-03-03 08:41] LABS: LYMPHOCYTE 9 % (22.0-35.0); MONOCYTE 3 % (1.0-6.0); NEUTROPHIL 88 % (50.0-70.0)
[2019-03-03 08:42] LABS: PLATELET ESTIMATE NORMAL (NORMAL)
[2019-03-03] MEDS: MethylPREDNISolone 40 mg Vial IVP SCH ×2 (10:29→21:57)
--- NOTE | 2019-03-03 12:38 | PN ---
DATE: 03/03/2019 SUBJECTIVE: A 63-year-old white male with transverse colon cancer, mass in the kidney status post kidney transplant, exacerbation of COPD, pneumonia. The patient is doing better. He is afebrile. Vital signs are stable. He is coughing, but he still has some rales bilaterally. I had a long discussion on his upcoming surgery for his transverse colon adenocarcinoma and renal mass. We discussed with Dr. Brown and also with Dr. Bowden, will have to coordinate the surgeries. The patient continues on bronchodilators, antibiotics and steroids. Doing better. Most likely he will be discharged in 24 hours. Pranav Baltazar MD
--- NOTE | 2019-03-03 14:41 | PQF ---
PROVIDER RESPONSE TEXT: No sepsis found REVIEWER QUERY TEXT: Rule Out Sepsis Clarification Rule out Sepsis is documented in the Medical Record. Please clarify whether: -- Patient has sepsis - Please document confirmed, suspected or probable causative organism - Please document confirmed, suspected or probable localized infection - Please clarify if sepsis is related to a device - Please clarify if sepsis was present on admission -- Sepsis was ruled out (include corresponding diagnosis for patient?s clinical picture and treatment ) -- Patient had sepsis which is resolved -- Other, please specify The patient's Clinical Indicators include: Patient admitted with COPD exacerbation, likely pneumonia, neoplasms of colon and left kidney. ID learning consultant notes that patient has sepsis due to pneumonia. Please document if you concur, is sepsis POA, ruled out, undetermined. Query created by: Razia Keith on 03/03/2019 9:06 AM Electronically signed by: Pranav Baltazar MD 03/03/2019 2:38 PM
--- NOTE | 2019-03-03 22:12 | CP.PCM.PN ---
Subjective - Date & Time of Evaluation Date of Evaluation: 03/03/19 Time of Evaluation: 08:10 - Subjective Subjective: Not in distress, no fevers. Objective - Vital Signs/Intake and Output Vital Signs (last 24 hours): Temp Pulse Resp BP Pulse Ox 98 F 84 20 144/84 95 03/02/19 15:12 03/02/19 18:05 03/02/19 15:12 03/02/19 18:05 03/02/19 15:12 Intake and Output: 03/02/19 03/03/19 18:59 06:59 Intake Total 600 Balance 600 - Medications Medications: Current Medications Albuterol/Ipratropium (Duoneb 3 Mg/0.5 Mg (3 Ml) Ud) 3 ml IH [id number] [facility] Last Admin: 03/02/19 13:08 Dose: Not Given Albuterol/Ipratropium (Duoneb 3 Mg/0.5 Mg (3 Ml) Ud) 3 ml IH Q2H PRN PRN Reason: Shortness of Breath Amlodipine Besylate (Norvasc) 5 mg PO 0600 [facility] Last Admin: 03/02/19 05:12 Dose: 5 mg Amlodipine Besylate (Norvasc) 5 mg PO QPM [facility] Last Admin: 03/02/19 18:03 Dose: 5 mg Atorvastatin Calcium (Lipitor) 10 mg PO DIN [facility] Last Admin: 03/02/19 16:15 Dose: 10 mg Budesonide (Pulmicort Respules) 0.5 mg IH [id number] [facility] Last Admin: 03/02/19 07:18 Dose: 0.5 mg Doxycycline Hyclate (Doryx) 100 mg PO Q12 [facility]; Protocol Stop: 03/09/19 12:07 Last Admin: 03/02/19 21:10 Dose: 100 mg Finasteride (Proscar) 5 mg PO QPM [facility] Last Admin: 03/02/19 18:04 Dose: 5 mg Cefepime HCl (Maxipime 1gm) 1 gm in 100 mls @ 100 mls/hr IVPB Q8 [facility]; Protocol Stop: 03/09/19 12:07 Last Admin: 03/02/19 21:09 Dose: 100 mls/hr Losartan Potassium (Cozaar) 50 mg PO QPM [facility] Last Admin: 03/02/19 18:05 Dose: 50 mg Methylprednisolone (Solu-Medrol) 60 mg IVP Q12 [facility] Last Admin: 03/02/19 21:09 Dose: 60 mg Pantoprazole Sodium (Protonix Ec Tab) 20 mg PO ACB [facility] Last Admin: 03/02/19 08:02 Dose: 20 mg Prednisone (Prednisone Tab) 5 mg PO 0600 [facility] Last Admin: 03/02/19 05:11 Dose: 5 mg Tacrolimus (Prograf Cap) 1 mg PO QPM [facility] Last Admin: 03/02/19 18:04 Dose: 1 mg Tacrolimus (Prograf Cap) 2 mg PO 0600 [facility] Last Admin: 03/02/19 05:11 Dose: 2 mg Tamsulosin HCl (Flomax) 0.4 mg PO QPM [facility] Last Admin: 03/02/19 18:05 Dose: 0.4 mg - Labs Labs: 03/02/19 07:45 03/02/19 07:45 - Constitutional Appears: Chronically Ill - Head Exam Head Exam: NORMAL INSPECTION - Respiratory Exam Respiratory Exam: Decreased Breath Sounds - Cardiovascular Exam Cardiovascular Exam: +S1, +S2 - GI/Abdominal Exam GI & Abdominal Exam: Soft. absent: Tenderness Assessment and Plan - Assessment and Plan (Free Text) Plan: Assessment Sepsis due to HCAP, clinically improving COPD renal cancer S/P nephrectomy and renal transplant history of transverse colon mass Plan continue Cefepime and Doxycycline day 4 for 4-7 days will continue to monitor clinically
[2019-03-04] MEDS: Albuterol-Ipratrop 3 mg / 0.5 (3 ml) UD IH SCH ×4 (01:36→20:02)
[2019-03-04] MEDS: Cefepime 1gm in NS 100ml 1 GM/100 ML BAG IVPB SCH ×3 (05:48→21:12)
[2019-03-04] MEDS: Budesonide 0.5 mg/2 ml Inhal Susp UD IH SCH ×2 (07:31→20:02)
[2019-03-04] MEDS ORDERED: Barium Sulfate Susp 2.1% w/v, 2.0% w/w 450 mL Bottle PO ONE (08:04)
[2019-03-04] MEDS ORDERED: Iohexol 350 MG/100 ML VIAL ONE (10:35)
[2019-03-04] MEDS: MethylPREDNISolone 40 mg Vial IVP SCH ×2 (11:12→21:12)
[2019-03-04] MEDS: Pantoprazole 20 mg EC Tab PO SCH (11:12)
--- NOTE | 2019-03-04 11:36 | PN ---
DATE: 03/04/2019 SUBJECTIVE: A 63-year-old white male, doing much better as far as his breathing, cough, sputum production and chest examination is done. The patient is continuing steroids, bronchodilators and antibiotics, most likely discharge home in the morning. We will plan for possible intervention on his colon cancer and his renal mass and repeat CT of the renal mass will done today. Pranav Baltazar MD
--- NOTE | 2019-03-04 11:48 | PN ---
DATE: 03/04/2019 PULMONARY NOTE SUBJECTIVE: The patient appears very comfortable this morning. He is not short of breath at rest. VITAL SIGNS (Last noted in the computer): Temperature is 97.5, pulse 75, respirations 18, blood pressure 145/84. Oxygen saturation on room air - 95%. HEENT: Normocephalic, atraumatic. No JVD. CARDIOVASCULAR: Positive S1, S2. No S3 gallop. LUNGS: Minimal/less rhonchi. No wheezing. EXTREMITIES: No clubbing, cyanosis or edema. Calves are nontender to palpation. GASTROINTESTINAL: Abdomen is soft, nontender and nondistended. Bowel sounds are positive. SKIN: No acute rash. NEUROLOGIC: Exam limited at the present time. IMPRESSION: 1. Acute bronchitis. 2. Chronic obstructive pulmonary disease. 3. Scar - right lower lobe. 4. Colon cancer. 5. Renal mass. PLAN: The patient appears very comfortable this morning. He is not short of breath at rest. He does state to feeling much, much better overall. On physical exam, his bronchospasm continues to resolve. In addition, the alveolar arterial gradient also continues to resolve. I will continue the current nebulizer treatments and decrease the intravenous steroids this morning. Hopefully, we can change to oral therapy in the next 24 hours. The patient remains on antibiotic therapy - as per Infectious Disease. Temperatures have fully resolved. All cultures are negative so far. Clinical status of the patient is significantly improved overall. The patient is advised to be out of the bed as much as possible. Hopefully, he can be discharged in the next day or so. I will discuss the above with Dr. Baltazar. Gonzales Woods MD [email or web address]
--- NOTE | 2019-03-04 13:31 | CP.PCM.PN ---
Subjective - Date & Time of Evaluation Date of Evaluation: 03/04/19 Time of Evaluation: 11:00 - Subjective Subjective: PGY1 General Surgery Progress Note for Dr. Bowden Pt seen and examined at bedside. Pt is resting comfortably, ambulating prior to examination. [place] any acute complaints. Denies fever, chills, chest pain, sob, abdominal pain, n/v/d, hematochezia, melena, hematuria, dysuria, lightheadedness, dizziness, headache, visual changes. Objective - Vital Signs/Intake and Output Vital Signs (last 24 hours): Temp Pulse Resp BP Pulse Ox 97.7 F 79 20 126/84 95 03/04/19 06:00 03/04/19 06:00 03/04/19 06:00 03/04/19 06:00 03/04/19 06:00 Intake and Output: 03/04/19 03/04/19 06:59 18:59 Intake Total 780 Balance 780 - Medications Medications: Current Medications Albuterol/Ipratropium (Duoneb 3 Mg/0.5 Mg (3 Ml) Ud) 3 ml IH [id number] [facility] Last Admin: 03/04/19 13:10 Dose: Not Given Albuterol/Ipratropium (Duoneb 3 Mg/0.5 Mg (3 Ml) Ud) 3 ml IH Q2H PRN PRN Reason: Shortness of Breath Last Admin: 03/04/19 13:15 Dose: 3 ml Amlodipine Besylate (Norvasc) 5 mg PO 0600 [facility] Last Admin: 03/04/19 05:48 Dose: 5 mg Amlodipine Besylate (Norvasc) 5 mg PO QPM [facility] Last Admin: 03/03/19 17:29 Dose: 5 mg Atorvastatin Calcium (Lipitor) 10 mg PO DIN [facility] Last Admin: 03/03/19 16:34 Dose: 10 mg Budesonide (Pulmicort Respules) 0.5 mg IH [id number] [facility] Last Admin: 03/04/19 07:31 Dose: 0.5 mg Doxycycline Hyclate (Doryx) 100 mg PO Q12 [facility]; Protocol Stop: 03/09/19 12:07 Last Admin: 03/04/19 11:12 Dose: 100 mg Finasteride (Proscar) 5 mg PO QPM [facility] Last Admin: 04/16/19 17:27 Dose: 5 mg Cefepime HCl (Maxipime 1gm) 1 gm in 100 mls @ 100 mls/hr IVPB Q8 [facility]; Protocol Stop: 03/09/19 12:07 Last Admin: 03/04/19 05:48 Dose: 100 mls/hr Losartan Potassium (Cozaar) 50 mg PO QPM [facility] Last Admin: 03/03/19 17:27 Dose: 50 mg Methylprednisolone (Solu-Medrol) 30 mg IVP Q12 [facility] Last Admin: 03/04/19 11:12 Dose: 30 mg Pantoprazole Sodium (Protonix Ec Tab) 20 mg PO ACB [facility] Last Admin: 03/04/19 11:12 Dose: 20 mg Prednisone (Prednisone Tab) 5 mg PO 0600 [facility] Last Admin: 03/04/19 05:48 Dose: 5 mg Tacrolimus (Prograf Cap) 1 mg PO QPM [facility] Last Admin: 03/03/19 17:29 Dose: 1 mg Tacrolimus (Prograf Cap) 2 mg PO 0600 [facility] Last Admin: 03/04/19 05:48 Dose: 2 mg Tamsulosin HCl (Flomax) 0.4 mg PO QPM [facility] Last Admin: 03/03/19 17:28 Dose: 0.4 mg - Labs Labs: 03/03/19 07:00 03/03/19 07:00 - Additional Findings Additional findings: - Constitutional Appears: Non-toxic, No Acute Distress - Head Exam Head Exam: ATRAUMATIC, NORMAL INSPECTION - Eye Exam Eye Exam: EOMI - ENT Exam ENT Exam: Mucous Membranes Moist - Respiratory Exam Respiratory Exam: Clear to Ausculation Bilateral, NORMAL BREATHING PATTERN. absent: Rales, Rhonchi, Wheezes, Respiratory Distress, Stridor - Cardiovascular Exam Cardiovascular Exam: REGULAR RHYTHM, +S1, +S2 - GI/Abdominal Exam GI & Abdominal Exam: Soft, Normal Bowel Sounds. absent: Distended, Firm, Guarding, Rigid, Tenderness Additional comments: (+) RLQ renal transplant is palpable, nontender - Extremities Exam Extremities Exam: Normal Capillary Refill, Normal Inspection. absent: Calf Tenderness, Pedal Edema, Tenderness - Back Exam Back Exam: NORMAL INSPECTION. absent: CVA tenderness (L), CVA tenderness (R) - Neurological Exam Neurological Exam: Alert, Awake - Psychiatric Exam Psychiatric exam: Normal Affect, Normal Mood - Skin Skin Exam: Dry, Normal Color, Warm Assessment and Plan - Assessment and Plan (Free Text) Assessment: 63M with PMHx COPD, renal failure s/p R renal transplant, presents with transver se colon mass recently found on colonoscopy (02/03). L renal mass of non- functioning kidney noted on Chest CT. Plan: Tolerating diet well, hemodynamically stable Urology, Dr. Brown, is following the pt. Recommends renal biopsy, does not recommend joint colon and renal surgery. Will review abdominal CT film and decide further treatment CTAP with PO contrast shows heterogenous mass in the upper pole of the left kidney measuring 67 mm in height and 61 mm in diameter. Both [place] kidneys are atrophic. There is no adenopathy. No evidence of distant metastases. Plan for transverse colon mass surgery after recs from urologist, Dr. Brown. Further care as per primary team Case discussed with per Dr. Kal Ravi PGY1 Pager# [phone]
--- NOTE | 2019-03-04 14:05 | CT ---
Date of service: 03/04/2019 PROCEDURE: CT Abdomen and Pelvis with contrast HISTORY: renal mass COMPARISON: None. TECHNIQUE: Contrast dose: 100 cc of Omni 350 Radiation dose: Total exam DLP = 454.48 mGy-cm. This CT exam was performed using one or more of the following dose reduction techniques: Automated exposure control, adjustment of the mA and/or kV according to patient size, and/or use of iterative reconstruction technique. FINDINGS: LOWER THORAX: Unremarkable. LIVER: Unremarkable. No gross lesion or ductal dilatation. GALLBLADDER AND BILE DUCTS: Unremarkable. PANCREAS: Unremarkable. No gross lesion or ductal dilatation. SPLEEN: Unremarkable. ADRENALS: Unremarkable. No mass. KIDNEYS AND URETERS: There is a heterogeneous mass in the upper pole of the left kidney measuring 67 mm in height and 61 mm diameter. Both [place] kidneys are atrophic. There is no adenopathy. There is no evidence of distant metastases. There is a renal transplant in the right lower quadrant. VASCULATURE: Unremarkable. No aortic aneurysm. No aortic atherosclerotic calcification or mural plaque present. BOWEL: Unremarkable. No obstruction. No gross mural thickening. APPENDIX: Normal appendix. PERITONEUM: Unremarkable. No free fluid. No free air. LYMPH NODES: Unremarkable. No enlarged lymph nodes. BLADDER: Unremarkable. REPRODUCTIVE: Unremarkable. BONES: No acute fracture. OTHER FINDINGS: None. IMPRESSION: There is a heterogeneous mass in the upper pole of the left kidney measuring 67 mm in height and 61 mm diameter. Both [place] kidneys are atrophic. There is no adenopathy. There is no evidence of distant metastases.
[2019-03-05] MEDS: Albuterol-Ipratrop 3 mg / 0.5 (3 ml) UD IH SCH ×3 (01:20→13:07)
[2019-03-05] MEDS: Cefepime 1gm in NS 100ml 1 GM/100 ML BAG IVPB SCH (05:51)
[2019-03-05 06:13] VITALS: BP 125/80; PULSE 79; RESP 17; O2SAT 95
[2019-03-05] MEDS: Budesonide 0.5 mg/2 ml Inhal Susp UD IH SCH (07:32)
[2019-03-05 08:12] VITALS: TEMP 97.5
--- NOTE | 2019-03-05 08:55 | CP.PCM.PN ---
Subjective - Date & Time of Evaluation Date of Evaluation: 03/05/19 Time of Evaluation: 09:07 - Subjective Subjective: PGY1 General Surgery Progress Note for Dr. Bowden Pt seen and examined at bedside. Pt is resting comfortably, continues to ambulate well without assistance Denies any acute complaints, and would like to go home as soon as possible. Denies fever, chills, chest pain, sob, abdominal pain, n/v/d, hematochezia, melena, hematuria, dysuria, lightheadedness, dizziness, headache, visual changes. Objective - Vital Signs/Intake and Output Vital Signs (last 24 hours): Temp Pulse Resp BP Pulse Ox 97.5 F L 79 17 125/80 95 03/05/19 06:00 03/05/19 06:00 03/05/19 06:00 03/05/19 06:00 03/05/19 06:00 Intake and Output: 03/05/19 03/05/19 06:59 18:59 Intake Total 660 Balance 660 - Medications Medications: Current Medications Albuterol/Ipratropium (Duoneb 3 Mg/0.5 Mg (3 Ml) Ud) 3 ml IH [id number] [facility] Last Admin: 03/05/19 07:32 Dose: 3 ml Albuterol/Ipratropium (Duoneb 3 Mg/0.5 Mg (3 Ml) Ud) 3 ml IH Q2H PRN PRN Reason: Shortness of Breath Last Admin: 03/04/19 13:15 Dose: 3 ml Amlodipine Besylate (Norvasc) 5 mg PO 0600 [facility] Last Admin: 03/05/19 05:50 Dose: 5 mg Amlodipine Besylate (Norvasc) 5 mg PO QPM [facility] Last Admin: 03/04/19 17:34 Dose: 5 mg Atorvastatin Calcium (Lipitor) 10 mg PO DIN [facility] Last Admin: 03/04/19 17:35 Dose: 10 mg Budesonide (Pulmicort Respules) 0.5 mg IH [id number] [facility] Last Admin: 03/05/19 07:32 Dose: 0.5 mg Doxycycline Hyclate (Doryx) 100 mg PO Q12 [facility]; Protocol Stop: 03/09/19 12:07 Last Admin: 03/04/19 21:12 Dose: 100 mg Finasteride (Proscar) 5 mg PO QPM [facility] Last Admin: 03/04/19 17:35 Dose: 5 mg Cefepime HCl (Maxipime 1gm) 1 gm in 100 mls @ 100 mls/hr IVPB Q8 [facility]; Protocol Stop: 03/09/19 12:07 Last Admin: 03/05/19 05:51 Dose: 100 mls/hr Losartan Potassium (Cozaar) 50 mg PO QPM [facility] Last Admin: 03/04/19 17:36 Dose: 50 mg Pantoprazole Sodium (Protonix Ec Tab) 20 mg PO ACB [facility] Last Admin: 03/04/19 11:12 Dose: 20 mg Prednisone (Prednisone Tab) 40 mg PO DAILY [facility] Tacrolimus (Prograf Cap) 1 mg PO QPM [facility] Last Admin: 03/04/19 17:34 Dose: 1 mg Tacrolimus (Prograf Cap) 2 mg PO 0600 [facility] Last Admin: 03/05/19 05:50 Dose: 2 mg Tamsulosin HCl (Flomax) 0.4 mg PO QPM [facility] Last Admin: 03/04/19 17:36 Dose: 0.4 mg - Labs Labs: 03/03/19 07:00 03/03/19 07:00 - Additional Findings Additional findings: - Constitutional Appears: Non-toxic, No Acute Distress - Head Exam Head Exam: ATRAUMATIC, NORMAL INSPECTION - Eye Exam Eye Exam: EOMI - ENT Exam ENT Exam: Mucous Membranes Moist - Respiratory Exam Respiratory Exam: Clear to Ausculation Bilateral, NORMAL BREATHING PATTERN. absent: Rales, Rhonchi, Wheezes, Respiratory Distress, Stridor - Cardiovascular Exam Cardiovascular Exam: REGULAR RHYTHM, +S1, +S2 - GI/Abdominal Exam GI & Abdominal Exam: Soft, Normal Bowel Sounds. absent: Distended, Firm, Guarding, Rigid, Tenderness Additional comments: (+) RLQ renal transplant is palpable, nontender - Extremities Exam Extremities Exam: Normal Capillary Refill, Normal Inspection. absent: Calf Tenderness, Pedal Edema, Tenderness - Back Exam Back Exam: NORMAL INSPECTION. absent: CVA tenderness (L), CVA tenderness (R) - Neurological Exam Neurological Exam: Alert, Awake - Psychiatric Exam Psychiatric exam: Normal Affect, Normal Mood - Skin Skin Exam: Dry, Normal Color, Warm Assessment and Plan - Assessment and Plan (Free Text) Assessment: 63M with PMHx COPD, renal failure s/p R renal transplant, presents with transverse colon mass recently found on colonoscopy (02/03). L renal mass of non-functioning kidney noted on Chest CT. Plan: Tolerating HHD well, hemodynamically stable. Labs reviewed. Urology, Dr. Brown, is following the pt. Recommends renal biopsy, does not recommend joint colon and renal surgery. Will review abdominal CT film and decide further treatment CTAP with PO contrast shows heterogenous mass in the upper pole of the left kidney measuring 67 mm in height and 61 mm in diameter. Both [place] kidneys are atrophic. There is no adenopathy. No evidence of distant metastases. Pt to have elective transverse colon mass surgery rescecheduled. Will coordinate with urology for renal surgery as well. Cleared for discharge home from surgical standpoint. Further care as per primary team. Case discussed with per Dr. Kal Ravi PGY1 Pager# [phone]
--- NOTE | 2019-03-05 09:13 | PN ---
DATE: 03/05/2019 PULMONARY NOTE SUBJECTIVE: The patient appears very comfortable this morning. He is not short of breath at rest. PHYSICAL EXAMINATION: VITAL SIGNS: Temperature is 97.8, pulse 79, respirations 17, blood pressure 125/80. Oxygen saturation on room air 95-100%. HEENT: Normocephalic, atraumatic. No JVD. CARDIOVASCULAR: Positive S1, S2. No S3 gallop. LUNGS: Clear bilaterally. GASTROINTESTINAL: Abdomen is soft, nontender and nondistended. Bowel sounds are positive. EXTREMITIES: No clubbing, cyanosis or edema. Calves are nontender to palpation. SKIN: No acute rash. NEUROLOGIC: Exam limited at the present time. IMPRESSION: 1. Acute bronchitis. 2. Chronic obstructive pulmonary disease. 3. Scar - right lower lobe. 4. Colon cancer. 5. Renal mass. PLAN: The patient appears very comfortable this morning. He is not short of breath at rest. He does state to feeling much, much better overall. He is asking to go home. On physical exam, his bronchospasm has resolved. His lungs are clear. Oxygen saturation on room air is 95-100%. I will continue the current nebulizer treatments and change to oral steroids this morning. The patient remains on antibiotic therapy - as per Infectious Disease. Temperatures have fully resolved. Repeat a.m. labs are pending. Clinical status of the patient has significantly improved overall. The patient is for discharge in the near future. I will discuss the above with Dr. Baltazar. Gonzales Woods MD MTDD
[2019-03-05] MEDS: Pantoprazole 20 mg EC Tab PO SCH (12:10)
--- NOTE | 2019-03-05 13:48 | CP.PCM.DIS ---
<Jean Booker - Last Filed: 03/06/19 15:07> Provider - Provider Date of Admission: 02/27/19 14:39 Attending physician: Pranav Baltazar MD Primary care physician: Pranav Baltazar MD Consults: 02/27/19 19:31 Inpatient CLERK RATING Core Measures Referral Routine Comment: PNA Physician Instructions: Reason For Exam: EVALUATION Transition In Care/Readmission Reduction Routine Comment: Physician Instructions: Reason For Exam: EVALUATION 02/27/19 19:35 Nursing Referral for Palliative Care Routine Comment: Physician Instructions: Reason For Exam: EVALUATION 02/28/19 09:28 Physician Consult Routine Comment: Consulting Provider: Varun Bowden Consulting Physician: Varun Bowden Reason for Consult: colon lesion/new renal mass 02/28/19 13:26 Physician Consult Routine Comment: L renal mass in non functioning kidney Consulting Provider: Feng Brown Consulting Physician: Feng Brown Reason for Consult: L renal mass in non functioning kidney 03/01/19 07:53 Physician Consult Routine Comment: Consulting Provider: Gonzales Woods Consulting Physician: Gonzales Woods Reason for Consult: pneumonia Physician Consult Routine Comment: Consulting Provider: Feng Brown Consulting Physician: Feng Brown Reason for Consult: renal mass Time Spent in preparation of Discharge (in minutes): 35 Diagnosis - Discharge Diagnosis (1) COPD exacerbation Status: Acute Hospital Course - Lab Results Lab Results: Micro Results 02/27/19 14:30 Blood Blood Culture - Final NO GROWTH AFTER 5 DAYS 02/27/19 14:30 Blood Gram Stain - Final TEST NOT PERFORMED 02/27/19 11:50 Blood Blood Culture - Final NO GROWTH AFTER 5 DAYS 02/27/19 11:50 Blood Gram Stain - Final TEST NOT PERFORMED 02/28/19 14:00 Naris MRSA Culture (Admit) - Final MRSA NOT DETECTED Most Recent Lab Values WBC 13.6 10^3/uL (4.5-11.0) H 03/03/19 07:00 RBC 4.65 10^6/uL (3.5-6.1) 03/03/19 07:00 Hgb 12.8 g/dL (14.0-18.0) L 03/03/19 07:00 Hct 38.8 % (42.0-52.0) L 03/03/19 07:00 MCV 83.4 fl (80.0-105.0) 03/03/19 07:00 MCH 27.5 pg (25.0-35.0) 03/03/19 07:00 MCHC 33.0 g/dl (31.0-37.0) 03/03/19 07:00 RDW 13.7 % (11.5-14.5) 03/03/19 07:00 Plt Count 268 10^3/uL (120.0-450.0) 03/03/19 07:00 MPV 9.5 fl (7.0-11.0) 03/03/19 07:00 Neut % (Auto) 91.3 % (50.0-68.0) H 03/03/19 07:00 Lymph % (Auto) 4.4 % (22.0-35.0) L 03/03/19 07:00 [place] % (Auto) 4.3 % (1.0-6.0) 03/03/19 07:00 Eos % (Auto) 0.0 % (1.5-5.0) L 03/03/19 07:00 Baso % (Auto) 0.0 % (0.0-3.0) 03/03/19 07:00 Lymph # (Auto) 0.6 (1.2-3.4) L 03/03/19 07:00 [place] # (Auto) 0.6 (0.1-0.6) 03/03/19 07:00 Eos # (Auto) 0.0 (0.0-0.7) 03/03/19 07:00 Baso # (Auto) 0.00 K/mm3 (0.0-2.0) 03/03/19 07:00 Absolute Neuts (auto) 12.45 (1.4-6.5) H 03/03/19 07:00 Neutrophils % (Manual) 88 % (50.0-70.0) H 03/03/19 07:00 Lymphocytes % (Manual) 9 % (22.0-35.0) L 03/03/19 07:00 Monocytes % (Manual) 3 % (1.0-6.0) 03/03/19 07:00 Platelet Evaluation Normal (NORMAL) 03/03/19 07:00 Sodium 136 mmol/L (132-148) 03/03/19 07:00 Potassium 4.6 mmol/L (3.6-5.0) 03/03/19 07:00 Chloride 106 mmol/L (98-107) 03/03/19 07:00 Carbon Dioxide 22 mmol/L (21-33) 03/03/19 07:00 Anion Gap 12 (10-20) 03/03/19 07:00 BUN 28 mg/dL (7-21) H 03/03/19 07:00 Creatinine 0.9 mg/dl (0.8-1.5) 03/03/19 07:00 Est GFR ( Amer) > 60 03/03/19 07:00 Est GFR (Non-Af Amer) > 60 03/03/19 07:00 Random Glucose 202 mg/dL (70-110) H 03/03/19 07:00 Calcium 9.2 mg/dL (8.4-10.5) 03/03/19 07:00 Magnesium 1.7 mg/dL (1.7-2.2) 03/02/19 07:45 Total Bilirubin 0.6 mg/dL (0.2-1.3) 03/03/19 07:00 AST 20 U/L (17-59) 03/03/19 07:00 ALT 27 U/L (7-56) 03/03/19 07:00 Alkaline Phosphatase 73 U/L (38-126) 03/03/19 07:00 Lactate Dehydrogenase 439 U/L (333-699) 02/27/19 11:50 Total Creatine Kinase 84 U/L (35-230) 02/27/19 11:50 Troponin I < 0.01 ng/mL 02/27/19 11:50 NT-Pro-B Natriuret Pep 178 pg/mL (0-450) 02/27/19 11:50 Total Protein 6.6 g/dL (5.8-8.3) 03/03/19 07:00 Albumin 3.7 g/dL (3.0-4.8) 03/03/19 07:00 Globulin 2.9 gm/dL 03/03/19 07:00 Albumin/Globulin Ratio 1.3 (1.1-1.8) 03/03/19 07:00 Procalcitonin 0.13 NG/ML (0.19-0.49) L 02/28/19 12:30 Urine Color Yellow (YELLOW) 02/27/19 16:13 Urine Appearance Clear (CLEAR) 02/27/19 16:13 Urine pH 6.0 (4.7-8.0) 02/27/19 16:13 Ur Specific [place] 1.020 (1.005-1.035) 02/27/19 16:13 Urine Protein Trace mg/dL (<30 mg/dL) H 02/27/19 16:13 Urine Glucose (UA) 500 mg/dL (NEGATIVE) H 02/27/19 16:13 Urine Ketones Trace mg/dL (NEGATIVE) H 02/27/19 16:13 Urine Blood Negative (NEGATIVE) 02/27/19 16:13 Urine Nitrate Negative (NEGATIVE) 02/27/19 16:13 Urine Bilirubin Negative (NEGATIVE) 02/27/19 16:13 Urine Urobilinogen 0.2 E.U./dL (<1 E.U./dL) 02/27/19 16:13 Ur Leukocyte Esterase Negative [place]/uL (NEGATIVE) 02/27/19 16:13 Urine RBC 2 - 5 /hpf (0-2) H 02/27/19 16:13 Urine WBC 2 - 5 /hpf (0-6) 02/27/19 16:13 Ur Epithelial Cells 6 - 8 /hpf (0-5) H 02/27/19 16:13 Ur L.pneumophila Ag Negative (NEGATIVE) 03/01/19 20:07 - Hospital Course Hospital Course: Hospital Course Patient is a 63 year old male with past medical history of COPD, HTN, hx of RCC s/p renal transplant, adrenalectomy, hx of adrenal mass recent colonoscopy with colonic mass concerning of colon cancer who presented to [facility] with shortness of breath. Patient was admitted for COPD exacerbation secondary to pneumonia. Placed on IV steroids, IV antibiotics and scheduled breathing treatments. Patient was seen and evaluated by pulmonology with Dr. Woods, Infectious disease with Dr. Flores. Patient respiratory status improved over the course of admission and WBC improved. Patient was evaluated by Dr. Bowden and General surgery team for evaluation of intervention regarding colonic mass. General surgery team recommended outpatient follow up with Dr. Bowden after evaluation and intervention regarding found renal mass. Patient was seen by urologist recommending renal mass biopsy and possible intervention with nephrectomy. Patient was discharged with prescriptions for doxycycline and levaquin as well as short course of oral steroids. Patient continued all other home medications. Discharge planning including outpatient follow up, medication reconciliation, signs and symptoms to be concerned for return to emergency department were discussed in detail. Patient was in understanding and in agreement. Brief summary of patient stay, see chart for full details. Imaging Abdomen/Pelvis CT: Heterogeneous mass in the upper pole of the left kidney measuring 67 mm in height and 61 mm diameter. Both [place] are atrophic. No adenopathy. No evidence of distant metastases. Chest angiogram CT: 6 cm diameter heterogenous mass in the left kindey suspicious for renal neoplasm. No prior stuides for comparison. No evidence of pulmonary embolus. Linear consolidation or scarring at the right lung base. There is a mildly enlarged right hilar lymph node. Discharge Exam - Head Exam Head Exam: ATRAUMATIC, NORMAL INSPECTION - Eye Exam Eye Exam: EOMI, PERRL - ENT Exam ENT Exam: Mucous Membranes Moist - Neck Exam Neck exam: Full Rom - Respiratory Exam Respiratory Exam: Clear to PA & Lateral, NORMAL BREATHING PATTERN. absent: Accessory Muscle Use, Decreased Breath Sounds, Respiratory Distress - Cardiovascular Exam Cardiovascular Exam: REGULAR RHYTHM, +S1, +S2 - GI/Abdominal Exam GI & Abdominal Exam: Normal Bowel Sounds. absent: Firm, Guarding - Extremities Exam Extremities exam: full ROM - Neurological Exam Neurological exam: Alert, CN II-XII Intact, Normal Gait, Oriented x3, Reflexes Normal - Psychiatric Exam Psychiatric exam: Normal Affect, Normal Mood - Skin Skin Exam: Dry, Warm Discharge Plan - Discharge Medications Prescriptions: Doxycycline Monohydrate 100 mg PO BID #5 capsule levoFLOXacin [Levaquin] 750 mg PO DAILY #2 tab predniSONE [predniSONE Tab] 40 mg PO DAILY 5 Days tab - Follow Up Plan Condition: FAIR Disposition: HOME/ ROUTINE Instructions: Chronic Obstructive Pulmonary Disease (COPD), Including Emphysema, Pneumonia, Adult (DC), Exacerbation of COPD (DC), Risk Factors for COPD, Kidney Transplant Additional Instructions: Follow up with Dr. Baltazar in his office , please f/u with Dr Bowden in 03/26/19. Referrals: Pranav Baltazar MD [Primary Care Provider] - <Edward England - Last Filed: 03/06/19 15:57> Provider - Provider Date of Admission: 02/27/19 14:39 Attending physician: Pranav Baltazar MD Primary care physician: Pranav Baltazar MD Consults: 02/27/19 19:31 Inpatient CLERK RATING Core Measures Referral Routine Comment: PNA Physician Instructions: Reason For Exam: EVALUATION Transition In Care/Readmission Reduction Routine Comment: Physician Instructions: Reason For Exam: EVALUATION 02/27/19 19:35 Nursing Referral for Palliative Care Routine Comment: Physician Instructions: Reason For Exam: EVALUATION 02/28/19 09:28 Physician Consult Routine Comment: Consulting Provider: Varun Bowden Consulting Physician: Varun Bowden Reason for Consult: colon lesion/new renal mass 02/28/19 13:26 Physician Consult Routine Comment: L renal mass in non functioning kidney Consulting Provider: Feng Brown Consulting Physician: Feng Brown Reason for Consult: L renal mass in non functioning kidney 03/01/19 07:53 Physician Consult Routine Comment: Consulting Provider: Gnozales Woods Consulting Physician: Gonzales Woods Reason for Consult: pneumonia Physician Consult Routine Comment: Consulting Provider: Feng Brown Consulting Physician: Feng Brown Reason for Consult: renal mass Hospital Course - Lab Results Lab Results: Micro Results 02/27/19 14:30 Blood Blood Culture - Final NO GROWTH AFTER 5 DAYS 02/27/19 14:30 Blood Gram Stain - Final TEST NOT PERFORMED 02/27/19 11:50 Blood Blood Culture - Final NO GROWTH AFTER 5 DAYS 02/27/19 11:50 Blood Gram Stain - Final TEST NOT PERFORMED 02/28/19 14:00 Naris MRSA Culture (Admit) - Final MRSA NOT DETECTED Most Recent Lab Values WBC 13.6 10^3/uL (4.5-11.0) H 03/03/19 07:00 RBC 4.65 10^6/uL (3.5-6.1) 03/03/19 07:00 Hgb 12.8 g/dL (14.0-18.0) L 03/03/19 07:00 Hct 38.8 % (42.0-52.0) L 03/03/19 07:00 MCV 83.4 fl (80.0-105.0) 03/03/19 07:00 MCH 27.5 pg (25.0-35.0) 03/03/19 07:00 MCHC 33.0 g/dl (31.0-37.0) 03/03/19 07:00 RDW 13.7 % (11.5-14.5) 03/03/19 07:00 Plt Count 268 10^3/uL (120.0-450.0) 03/03/19 07:00 MPV 9.5 fl (7.0-11.0) 03/03/19 07:00 Neut % (Auto) 91.3 % (50.0-68.0) H 03/03/19 07:00 Lymph % (Auto) 4.4 % (22.0-35.0) L 03/03/19 07:00 [place] % (Auto) 4.3 % (1.0-6.0) 03/03/19 07:00 Eos % (Auto) 0.0 % (1.5-5.0) L 03/03/19 07:00 Baso % (Auto) 0.0 % (0.0-3.0) 03/03/19 07:00 Lymph # (Auto) 0.6 (1.2-3.4) L 03/03/19 07:00 [place] # (Auto) 0.6 (0.1-0.6) 03/03/19 07:00 Eos # (Auto) 0.0 (0.0-0.7) 03/03/19 07:00 Baso # (Auto) 0.00 K/mm3 (0.0-2.0) 03/03/19 07:00 Absolute Neuts (auto) 12.45 (1.4-6.5) H 03/03/19 07:00 Neutrophils % (Manual) 88 % (50.0-70.0) H 03/03/19 07:00 Lymphocytes % (Manual) 9 % (22.0-35.0) L 03/03/19 07:00 Monocytes % (Manual) 3 % (1.0-6.0) 03/03/19 07:00 Platelet Evaluation Normal (NORMAL) 03/03/19 07:00 Sodium 136 mmol/L (132-148) 03/03/19 07:00 Potassium 4.6 mmol/L (3.6-5.0) 03/03/19 07:00 Chloride 106 mmol/L (98-107) 03/03/19 07:00 Carbon Dioxide 22 mmol/L (21-33) 03/03/19 07:00 Anion Gap 12 (10-20) 03/03/19 07:00 BUN 28 mg/dL (7-21) H 03/03/19 07:00 Creatinine 0.9 mg/dl (0.8-1.5) 03/03/19 07:00 Est GFR ( Amer) > 60 03/03/19 07:00 Est GFR (Non-Af Amer) > 60 03/03/19 07:00 Random Glucose 202 mg/dL (70-110) H 03/03/19 07:00 Calcium 9.2 mg/dL (8.4-10.5) 03/03/19 07:00 Magnesium 1.7 mg/dL (1.7-2.2) 03/02/19 07:45 Total Bilirubin 0.6 mg/dL (0.2-1.3) 03/03/19 07:00 AST 20 U/L (17-59) 03/03/19 07:00 ALT 27 U/L (7-56) 03/03/19 07:00 Alkaline Phosphatase 73 U/L (38-126) 03/03/19 07:00 Lactate Dehydrogenase 439 U/L (333-699) 02/27/19 11:50 Total Creatine Kinase 84 U/L (35-230) 02/27/19 11:50 Troponin I < 0.01 ng/mL 02/27/19 11:50 NT-Pro-B Natriuret Pep 178 pg/mL (0-450) 02/27/19 11:50 Total Protein 6.6 g/dL (5.8-8.3) 03/03/19 07:00 Albumin 3.7 g/dL (3.0-4.8) 03/03/19 07:00 Globulin 2.9 gm/dL 03/03/19 07:00 Albumin/Globulin Ratio 1.3 (1.1-1.8) 03/03/19 07:00 Procalcitonin 0.13 NG/ML (0.19-0.49) L 02/28/19 12:30 Urine Color Yellow (YELLOW) 02/27/19 16:13 Urine Appearance Clear (CLEAR) 02/27/19 16:13 Urine pH 6.0 (4.7-8.0) 02/27/19 16:13 Ur Specific [place] 1.020 (1.005-1.035) 02/27/19 16:13 Urine Protein Trace mg/dL (<30 mg/dL) H 02/27/19 16:13 Urine Glucose (UA) 500 mg/dL (NEGATIVE) H 02/27/19 16:13 Urine Ketones Trace mg/dL (NEGATIVE) H 02/27/19 16:13 Urine Blood Negative (NEGATIVE) 02/27/19 16:13 Urine Nitrate Negative (NEGATIVE) 02/27/19 16:13 Urine Bilirubin Negative (NEGATIVE) 02/27/19 16:13 Urine Urobilinogen 0.2 E.U./dL (<1 E.U./dL) 02/27/19 16:13 Ur Leukocyte Esterase Negative [place]/uL (NEGATIVE) 02/27/19 16:13 Urine RBC 2 - 5 /hpf (0-2) H 02/27/19 16:13 Urine WBC 2 - 5 /hpf (0-6) 02/27/19 16:13 Ur Epithelial Cells 6 - 8 /hpf (0-5) H 02/27/19 16:13 Ur L.pneumophila Ag Negative (NEGATIVE) 03/01/19 20:07 - Hospital Course Hospital Course: Pt seen and examined by me. I have reviewed the note of the lpn medical assistant and I agree with it. I have discussed the assessment and plan with the resident. I have reviewed the medications and the last labs.
--- NOTE | 2019-03-07 02:19 | DS ---
HOSPITAL COURSE: The patient was seen and examined. I do agree with the note of the medical appointment scheduler. I was involved in the plan of care. The patient had a renal transplant. He is currently comfortable. He is on prednisone and tacrolimus. The patient has a lesion in the kidney. He is going to follow up with his urologist as an outpatient. He was seen by Urology and General Surgery. The patient has COPD, which is stable. He has hypertension, which is controlled with his medications. His medications were reviewed. He is going to follow with Dr. Baltazar as an outpatient for his evaluation of his kidney mass. He has COPD that is much better with steroids and IV antibiotics. Edward England MD
== END 2019-03-05 15:08 | disposition home or self-care (01) | DRG 190 ==
LOC: ED 11:08 → ERH 13:29 → OBSVTOIN 14:39 → 5RSO 15:19
PROVIDERS: ADMIT Internal Medicine; ATTEND Internal Medicine
DX: J44.1 Chronic obstructive pulmonary disease with (acute) exacerbation (principal); J18.9 Pneumonia, unspecified organism; C64.2 Malignant neoplasm of left kidney, except renal pelvis; C18.4 Malignant neoplasm of transverse colon; Z94.0 Kidney transplant status; J44.0 Chronic obstructive pulmonary disease with (acute) lower respiratory infection; I10 Essential (primary) hypertension; N40.0 Benign prostatic hyperplasia without lower urinary tract symptoms; J20.9 Acute bronchitis, unspecified; Z90.5 Acquired absence of kidney; Z87.891 Personal history of nicotine dependence; E78.5 Hyperlipidemia, unspecified; H91.90 Unspecified hearing loss, unspecified ear; Z82.49 Family history of ischemic heart disease and other diseases of the circulatory system; Z85.528 Personal history of other malignant neoplasm of kidney

== ENCOUNTER 2019-03-19 06:16 | Inpatient (IN) | payer BC ==
[2019-03-09 11:42] VITALS: BMI 23.3
[2019-03-19] MEDS ORDERED: Propofol 10 mg/ml Inj (20 ML) ONE (07:46)
[2019-03-19] MEDS ORDERED: Midazolam 2 MG/2 ML VIAL ONE (07:46)
[2019-03-19] MEDS ORDERED: Rocuronium 10 mg/ml (5 ml) ONE ×2 (07:46→10:28)
[2019-03-19] MEDS ORDERED: Phenylephrine 10 mg/ml Inj ONE (07:47)
[2019-03-19] MEDS ORDERED: ePHEDrine 50 mg/ml Inj ONE (07:47)
[2019-03-19] MEDS ORDERED: Sevoflurane - Inhalation Anesthetic Liq (250 ml) ONE (10:17)
[2019-03-19] MEDS ORDERED: Desflurane Inhalation Anesthetic Liq (240 ml) ONE (10:19)
[2019-03-19] MEDS ORDERED: Bupivacaine 0.5% 50 ML IJ ONE (11:07)
[2019-03-19] MEDS ORDERED: Neostigmine Methylsulfate 3mg/3ml Syringe IV ONE (11:24)
[2019-03-19] MEDS ORDERED: HYDROmorphone 0.5 mg/0.5 ml ISec IVP PRN (12:09)
[2019-03-19] MEDS ORDERED: Lactated Ringer's 1,000 ML IV SCH (12:15)
[2019-03-19] MEDS ORDERED: cefOXitin 2 GM in Sodium Chloride 0.9% 100 ML IV SCH ×2 (12:30→23:15)
[2019-03-19] MEDS ORDERED: HYDROmorphone 0.5 mg/0.5 ml ISec IVP ONE (12:45)
[2019-03-19] MEDS ORDERED: HYDROmorphone 0.5 mg/0.5 ml ISec ONE (12:49)
--- NOTE | 2019-03-19 13:06 | CP.PCM.CON ---
<Raheem Mohan - Last Filed: 03/19/19 14:12> Meds Allergies/Adverse Reactions: Allergies Allergy/AdvReac Type Severity Reaction Status Date / Time No Known Allergies Allergy Verified 03/09/19 11:42 - Medications Medications: Current Medications Acetaminophen (Tylenol 325mg Tab) 650 mg PO Q6H PRN PRN Reason: Pain, Mild (1-3) Heparin Sodium (Porcine) (Heparin) 5,000 units SC Q8 ROSALES; Protocol Hydromorphone HCl (Dilaudid) 0.5 mg IVP Q15M PRN PRN Reason: Pain, Moderate/Severe (4-10) Hydromorphone HCl (Dilaudid) 1 mg IVP Q4H PRN PRN Reason: Pain, moderate (4-7) Lactated Ringer's (Lactated Ringer's) 1,000 mls @ 125 mls/hr IV .Q8H ROSALES Stop: 03/19/19 14:16 Lactated Ringer's (Lactated Ringer's) 1,000 mls @ 125 mls/hr IV .Q8H ROSALES Cefoxitin Sodium 2 gm/ Sodium (Chloride) 100 mls @ 100 mls/hr IV Q8H ROSALES; Protocol Stop: 03/19/19 21:59 Ondansetron HCl (Zofran Inj) 4 mg IVP ONCE PRN PRN Reason: Nausea/Vomiting Ondansetron HCl (Zofran Inj) 4 mg IVP Q6 PRN PRN Reason: Nausea/Vomiting Results - Vital Signs Recent Vital Signs: Last Vital Signs Temp 97.6 F 03/19/19 13:15 Pulse 78 03/19/19 13:15 Resp 16 03/19/19 13:15 BP 119/71 03/19/19 13:15 Pulse Ox 98 03/19/19 13:15 - Labs Labs: Laboratory Results - last 24 hr 03/19/19 03/19/19 06:35 07:15 Blood Type O POSITIVE Blood Type Confirm O POSITIVE Antibody Screen Negative Crossmatch See Detail BBK History Checked No verified bt Addendum Addendum: 03/19/19 14:10 MICU Attending: Patient seen and examined in the PACU with resident. Agree with resident note above with the following additions/exceptions: 63M with past medical history of COPD, HTN, hx of RCC s/p renal transplant, adrenalectomy, hx of adrenal mass recent colonoscopy with colonic mass concerning of colon cancer s/p transverse colectomy today. During the procedure there was a concern for met kidney mass however nephrectomy not performed given complexity. Deferred for a later date because it would be safer with a flank approach instead. Lengthy procedure overall however. Patient was extubated in PACU At this time no lab work available however patient is awake alert oriented and groggy vitals are stable on 2L oxygen sat 97% check CBC, CMP and CXR NPO for now until surg clears given adrenelectomy, if he becomes hypotensive will add steroids on as well duonebs q 6 hours for COPD (standing) caution for any fever or signs of sepsis given immunosuppression then will start empiric broad spectrum abx DVT ppx sq heparin if ok with surg PPI for GI ppx rest of care as per resident note above Raheem Mohan MD MICU Attending <Earl Eduardo - Last Filed: 03/19/19 17:06> History of Present Illness - History of Present Illness History of Present Illness: ICU Consultation CC: s/p Partial Colectomy HPI: Mr. Galvez is a 63 year old male with a past medical history significant for COPD, HTN, BPH, HLD, history of pheochromocytoma s/p adrenalectomy, renal failure s/p renal transplant, unspecified renal mass s/p biopsy and recently diagnosed transverse colon mass who presents after colonic mass excision with partial colectomy with Dr. Bowden. Patient was seen in PACU after the procedure. Patient reports drowsiness from the anesthesia but otherwise is alert and oriented to person, place, time and event. He endorses that his only complaint is abdominal pain associated with the procedure site but otherwise denies any headache, neck pain/stiffness, chest pain, SOB, cough, N/V/D/C, or any other complaints at this time. Of note, a radical nephrectomy was planned to be done after the partial colectomy but this was unable to be completed due to extensive adhesions in the area. PMH: As stated above PSH: Pelvis renal transplant, left adrenal pheochromocytoma, right ventral hernia repair Family History: History limited as patient was adopted but mother and father secondary to pulmonary complications Social History: 40 year pack smoking history (quit in 1990), drinks 2-3 cans of beer weekly, denies illicit drug use Allergies: NKDA Home Medications: Reviewed; As per JAN PMD: Dr. 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 MASS LEFT KDNEY) Other/Comment: kidney transplant - ENDOCRINE/METABOLIC Hx Endocrine Disorders: No - HEMATOLOGICAL/ONCOLOGICAL Hx Blood Transfusions: No Hx Blood Transfusion Reaction: No - INTEGUMENTARY Hx Dermatological Problems: No - MUSCULOSKELETAL/RHEUMATOLOGICAL Hx Musculoskeletal Disorders: No - GASTROINTESTINAL Hx Gastrointestinal Disorders: Yes (COLON CA) - GENITOURINARY/GYNECOLOGICAL Hx Genitourinary Disorders: Yes Hx Prostate Problems: Yes (BPH) - PSYCHIATRIC Hx Emotional Abuse: No Hx Physical Abuse: No Hx Substance Use: No - SURGICAL HISTORY Hx Surgeries: Yes - ANESTHESIA Hx Anesthesia Reactions: No Hx Malignant Hyperthermia: No Meds - Medications Medications: Current Medications Acetaminophen (Tylenol 325mg Tab) 650 mg PO Q6H PRN PRN Reason: Pain, Mild (1-3) Heparin Sodium (Porcine) (Heparin) 5,000 units SC Q8 ROSALES; Protocol Hydromorphone HCl (Dilaudid) 0.5 mg IVP Q15M PRN PRN Reason: Pain, Moderate/Severe (4-10) Hydromorphone HCl (Dilaudid) 1 mg IVP Q4H PRN PRN Reason: Pain, moderate (4-7) Lactated Ringer's (Lactated Ringer's) 1,000 mls @ 125 mls/hr IV .Q8H ROSALES Stop: 03/19/19 14:16 Cefoxitin Sodium 2 gm/ Sodium (Chloride) 100 mls @ 100 mls/hr IV Q8H ROSALES; Protocol Stop: 03/19/19 21:29 Lactated Ringer's (Lactated Ringer's) 1,000 mls @ 125 mls/hr IV .Q8H ROSALES Ondansetron HCl (Zofran Inj) 4 mg IVP ONCE PRN PRN Reason: Nausea/Vomiting Ondansetron HCl (Zofran Inj) 4 mg IVP Q6 PRN PRN Reason: Nausea/Vomiting Physical Exam - Constitutional Appears: Non-toxic, No Acute Distress - Head Exam Head Exam: ATRAUMATIC, NORMOCEPHALIC - Eye Exam Eye Exam: EOMI, PERRL - ENT Exam ENT Exam: Mucous Membranes Moist - Respiratory Exam Respiratory Exam: Clear to Auscultation Bilateral, NORMAL BREATHING PATTERN. absent: Rales, Rhonchi, Wheezes - Cardiovascular Exam Cardiovascular Exam: REGULAR RHYTHM, RRR, +S1, +S2 - GI/Abdominal Exam GI & Abdominal Exam: Normal Bowel Sounds, Tenderness (Diffusely to palpation surrounding surgical excision site; Wound dressing c/d/i in central abdominal wall with drains noted) - Extremities Exam Extremities exam: Negative for: calf tenderness, pedal edema - Neurological Exam Neurological exam: Alert, Oriented x3 - Psychiatric Exam Psychiatric exam: Normal Affect, Normal Mood - Skin Skin Exam: Dry, Intact, Warm Results - Vital Signs Recent Vital Signs: Last Vital Signs Temp 97.6 F 03/19/19 12:45 Pulse 78 03/19/19 12:45 Resp 16 03/19/19 12:45 BP 124/76 03/19/19 12:45 Pulse Ox 94 L 03/19/19 12:45 - Labs Labs: Laboratory Results - last 24 hr 03/19/19 03/19/19 06:35 07:15 Blood Type O POSITIVE Blood Type Confirm O POSITIVE Antibody Screen Negative Crossmatch See Detail BBK History Checked No verified bt Assessment & Plan - Assessment and Plan (Free Text) Assessment: 63 year old male with a past medical history significant for COPD, HTN, BPH, HLD, history of pheochromocytoma s/p adrenalectomy, renal failure s/p renal transplant, unspecified renal mass s/p biopsy and recently diagnosed transverse colon mass who presents after colonic mass excision with partial colectomy. Patient was extubated without complication in PACU. Nephrectomy was planned for today but given the complexity secondary to adhesions. This will be rescheduled for a later date in favor of a flank approach. Patient will be monitored in MICU overnight given the complexity of the procedure and reassessed tomorrow for further disposition. Plan: -Will obtain routine labs today and for in the AM -Chest X-Ray in AM -Continue supplemental oxygen via [place] at 2L/min -Duonebs Q6 for COPD -NPO Diet; Will advance based on surgery recommendations -Will add stress dose steroids should patient become hypotensive given adrenalectomy history -Will monitor closely for signs of infection, including fever, as patient is on chronic immunosuppression -DVT/GI Prophylaxis as ordered -MICU monitoring overnight; Will reassess for disposition in AM Patient seen and case discussed with attending, Dr. Raheem Mohan. Earl Eduardo PGY2 - Date & Time Date: 03/19/19 Time: 13:06
--- NOTE | 2019-03-19 13:10 | RAD ---
Date of service: 03/19/2019 PROCEDURE: CHEST RADIOGRAPH, 1 VIEW HISTORY: S/P TLC insertion COMPARISON: 02/27/2019 FINDINGS: LUNGS: Clear. PLEURA: No pneumothorax or pleural fluid seen. CARDIOVASCULAR: No aortic atherosclerotic calcification present. Normal. OSSEOUS STRUCTURES: No significant abnormalities. VISUALIZED UPPER ABDOMEN: Normal. OTHER FINDINGS: None. IMPRESSION: Right IJ line terminates in the SVC. There is no pneumothorax
--- NOTE | 2019-03-19 13:39 | PCM.SURG1 ---
Surgeon's Initial Post Op Note - Surgeon's Notes Surgeon: Kal Screen Handler: [id number] Type of Anesthesia: General Endo, Local Pre-Operative Diagnosis: Colon mass Operative Findings: Colon mass in the hepatic flexure Post-Operative Diagnosis: Colon mass Operation Performed: Right Hemicolectomy Specimen/Specimens Removed: Right colon Estimated Blood Loss: EBL {In ML}: 200 Blood Products Given: N/A Drains Used: No Drains Post-Op Condition: Good Date of Surgery/Procedure: 03/19/19 Time of Surgery/Procedure: 08:00
--- NOTE | 2019-03-19 14:05 | PCM.URO ---
Urology Progress Note - Objective Lab Studies: Reviewed (full note dictated) Lab Results Last 24 Hours: Laboratory Results - last 24 hr 03/19/19 03/19/19 06:35 07:15 Blood Type O POSITIVE Blood Type Confirm O POSITIVE Antibody Screen Negative Crossmatch See Detail BBK History Checked No verified bt Intake & Output: Intake & Output 03/18/19 03/19/19 03/19/19 18:59 06:59 18:59 Intake Total 10 Balance 10 Intake: IV 10 Vital Signs: Vital Signs - 24 hr 03/19/19 03/19/19 03/19/19 07:08 12:00 12:15 Temperature 97.7 F 97.6 F 97.6 F Pulse Rate 74 71 76 Respiratory 20 18 18 Rate Blood Pressure 139/88 128/64 122/78 O2 Sat by Pulse 97 99 94 L Oximetry 03/19/19 03/19/19 03/19/19 12:30 12:45 13:00 Temperature 97.6 F 97.6 F 97.6 F Pulse Rate 86 78 67 Respiratory 18 16 16 Rate Blood Pressure 129/80 124/76 120/70 O2 Sat by Pulse 94 L 94 L 98 Oximetry 03/19/19 13:15 Temperature 97.6 F Pulse Rate 78 Respiratory 16 Rate Blood Pressure 119/71 O2 Sat by Pulse 98 Oximetry
[2019-03-19] MEDS: HYDROmorphone 1 mg/ml ISec IVP PRN ×3 (14:09→22:17)
[2019-03-19] MEDS: cefOXitin 2 GM in Sodium Chloride 0.9% 100 ML IV SCH ×2 (14:22→21:30)
[2019-03-19] MEDS: Lactated Ringer's 1,000 ML IV SCH (14:24)
[2019-03-19 18:26] LABS: HEMOGLOBIN 10.7 g/dL (14.0-18.0); LYMPH # 0.8 (1.2-3.4); LYMPH % 5.2 % (22.0-35.0); MEAN CELL VOLUME 82.5 fl (80.0-105.0); MEAN CORPUSCULAR HEMOGLOBIN 27.2 pg (25.0-35.0); MEAN CORPUSCULAR HGB CONC 32.9 g/dl (31.0-37.0); MEAN PLATELET VOLUME 8.8 fl (7.0-11.0); MONO # 0.6 (0.1-0.6); MONO % 4.2 % (1.0-6.0); PLATELET COUNT 119 10^3/uL (120.0-450.0); RBC 3.94 10^6/uL (3.5-6.1); RED CELL DISTRIBUTION WIDTH 14.3 % (11.5-14.5); WHITE BLOOD COUNT 15.4 10^3/uL (4.5-11.0)
[2019-03-19 18:41] LABS: ALB/GLOB RATIO 1.2 (1.1-1.8); ALBUMIN 2.9 g/dL (3.0-4.8); ALT/SGPT 35 U/L (7-56); AST/SGOT 26 U/L (17-59); BLOOD UREA NITROGEN 17 mg/dL (7-21); CALCIUM 7.8 mg/dL (8.4-10.5); GFR NON-AFRICAN AMERICAN > 60
[2019-03-19 19:13] LABS: BAND 3 % (0-2); LYMPHOCYTE 8 % (22.0-35.0); MONOCYTE 3 % (1.0-6.0); NEUTROPHIL 86 % (50.0-70.0)
[2019-03-19] MEDS: Albuterol-Ipratrop 3 mg / 0.5 (3 ml) UD IH SCH (21:58)
[2019-03-19] MEDS ORDERED: Pneumococcal 23-Valent Vaccine IM ONE (22:48)
[2019-03-20] MEDS: Lactated Ringer's 1,000 ML IV SCH ×3 (00:11→09:00)
[2019-03-20] MEDS ORDERED: Magnesium Sulfate 2 GM in Sodium Chloride 0.9% 100 ML IVPB ONE (01:43)
[2019-03-20] MEDS: HYDROmorphone 1 mg/ml ISec IVP PRN ×5 (01:57→21:47)
[2019-03-20] MEDS: Albuterol-Ipratrop 3 mg / 0.5 (3 ml) UD IH SCH ×4 (02:24→20:04)
[2019-03-20 07:11] LABS: BASO # 0.01 K/mm3 (0.0-2.0); BASO % 0.1 % (0.0-3.0); EOS % 0.1 % (1.5-5.0); HEMOGLOBIN 10.1 g/dL (14.0-18.0); LYMPH # 1.3 (1.2-3.4); LYMPH % 12.2 % (22.0-35.0); MEAN CELL VOLUME 83.3 fl (80.0-105.0); MEAN CORPUSCULAR HEMOGLOBIN 27.2 pg (25.0-35.0); MEAN CORPUSCULAR HGB CONC 32.7 g/dl (31.0-37.0); MEAN PLATELET VOLUME 8.7 fl (7.0-11.0); MONO # 0.6 (0.1-0.6); MONO % 5.7 % (1.0-6.0); RBC 3.71 10^6/uL (3.5-6.1); RED CELL DISTRIBUTION WIDTH 14.7 % (11.5-14.5); WHITE BLOOD COUNT 10.3 10^3/uL (4.5-11.0)
[2019-03-20 07:14] LABS: ALB/GLOB RATIO 1.2 (1.1-1.8); ALBUMIN 2.8 g/dL (3.0-4.8); ALT/SGPT 34 U/L (7-56); AST/SGOT 21 U/L (17-59); BLOOD UREA NITROGEN 15 mg/dL (7-21); GFR NON-AFRICAN AMERICAN > 60
--- NOTE | 2019-03-20 08:04 | PCM.URO ---
Urology Progress Note - Objective Lab Studies: Reviewed (full note dictated no gu changes) Lab Results Last 24 Hours: Laboratory Results - last 24 hr 03/19/19 03/19/19 03/19/19 06:35 07:15 18:00 WBC 15.4 H RBC 3.94 Hgb 10.7 L D Hct 32.5 L MCV 82.5 MCH 27.2 MCHC 32.9 RDW 14.3 Plt Count 119 L MPV 8.8 Neut % (Auto) 90.6 H Lymph % (Auto) 5.2 L Pine % (Auto) 4.2 Eos % (Auto) 0.0 L Baso % (Auto) 0.0 Lymph # (Auto) 0.8 L Pine # (Auto) 0.6 Eos # (Auto) 0.0 Baso # (Auto) 0.00 Absolute Neuts (auto) 13.92 H Neutrophils % (Manual) 86 H Band Neutrophils % 3 H Lymphocytes % (Manual) 8 L Monocytes % (Manual) 3 Sodium Potassium Chloride Carbon Dioxide Anion Gap BUN Creatinine Est GFR ( Amer) Est GFR (Non-Af Amer) Random Glucose Calcium Phosphorus Magnesium Total Bilirubin AST ALT Alkaline Phosphatase Total Protein Albumin Globulin Albumin/Globulin Ratio Blood Type O POSITIVE Blood Type Confirm O POSITIVE Antibody Screen Negative Crossmatch See Detail BBK History Checked No verified bt 03/19/19 03/20/19 03/20/19 18:00 06:40 06:40 WBC 10.3 D RBC 3.71 Hgb 10.1 L Hct 30.9 L MCV 83.3 MCH 27.2 MCHC 32.7 RDW 14.7 H Plt Count 116 L MPV 8.7 Neut % (Auto) 81.9 H Lymph % (Auto) 12.2 L Pine % (Auto) 5.7 Eos % (Auto) 0.1 L Baso % (Auto) 0.1 Lymph # (Auto) 1.3 Pine # (Auto) 0.6 Eos # (Auto) 0.0 Baso # (Auto) 0.01 Absolute Neuts (auto) 8.42 H Neutrophils % (Manual) Band Neutrophils % Lymphocytes % (Manual) Monocytes % (Manual) Sodium 136 135 Potassium 4.1 4.0 Chloride 104 103 Carbon Dioxide 24 25 Anion Gap 11 11 BUN 17 15 Creatinine 0.7 L 0.7 L Est GFR ( Amer) > 60 > 60 Est GFR (Non-Af Amer) > 60 > 60 Random Glucose 142 H 124 H Calcium 7.8 L 8.0 L Phosphorus 4.4 Magnesium 1.1 L Total Bilirubin 2.1 H 2.1 H AST 26 21 ALT 35 34 Alkaline Phosphatase 65 68 Total Protein 5.2 L 5.2 L Albumin 2.9 L 2.8 L Globulin 2.4 2.4 Albumin/Globulin Ratio 1.2 1.2 Blood Type Blood Type Confirm Antibody Screen Crossmatch BBK History Checked Intake & Output: Intake & Output 03/19/19 03/20/19 03/20/19 18:59 06:59 18:59 Intake Total 655 1600 1400 Output Total 900 700 Balance -245 1600 700 Weight 150 lb Intake: IV 655 1600 1400 Left Forearm 10 1600 Right Forearm 10 Right Internal Jugular 625 1400 Oral 0 0 Output: Urine 900 700 Urethral ([place]) 900 700 Stool 0 Other: Voiding Method Toilet # Bowel Movements 0 Vital Signs: Vital Signs - 24 hr 03/19/19 03/19/19 03/19/19 12:00 12:15 12:30 Temperature 97.6 F 97.6 F 97.6 F Pulse Rate 71 76 86 Pulse Rate [ Right Radial] Respiratory 18 18 18 Rate Blood Pressure 128/64 122/78 129/80 O2 Sat by Pulse 99 94 L 94 L Oximetry 03/19/19 03/19/19 03/19/19 12:45 13:00 13:15 Temperature 97.6 F 97.6 F 97.6 F Pulse Rate 78 67 78 Pulse Rate [ Right Radial] Respiratory 16 16 16 Rate Blood Pressure 124/76 120/70 119/71 O2 Sat by Pulse 94 L 98 98 Oximetry 03/19/19 03/19/19 03/19/19 13:44 13:45 13:46 Temperature Pulse Rate 118 H 79 89 Pulse Rate [ Right Radial] Respiratory 22 14 16 Rate Blood Pressure O2 Sat by Pulse 99 Oximetry 03/19/19 03/19/19 03/19/19 13:47 13:50 14:00 Temperature Pulse Rate 83 80 88 Pulse Rate [ Right Radial] Respiratory 14 12 14 Rate Blood Pressure 138/76 130/87 O2 Sat by Pulse 99 97 Oximetry 03/19/19 03/19/19 03/19/19 14:10 14:20 14:26 Temperature 98.1 F Pulse Rate 80 98 H Pulse Rate [ Right Radial] Respiratory 15 23 Rate Blood Pressure O2 Sat by Pulse 99 98 Oximetry 03/19/19 03/19/19 03/19/19 14:30 14:40 14:50 Temperature Pulse Rate 87 89 71 Pulse Rate [ Right Radial] Respiratory 12 16 12 Rate Blood Pressure O2 Sat by Pulse 98 98 95 Oximetry 03/19/19 03/19/19 03/19/19 15:00 15:10 15:20 Temperature Pulse Rate 72 78 75 Pulse Rate [ Right Radial] Respiratory 16 12 13 Rate Blood Pressure 124/67 O2 Sat by Pulse 98 97 96 Oximetry 03/19/19 03/19/19 03/19/19 15:30 15:40 15:50 Temperature Pulse Rate 84 87 83 Pulse Rate [ Right Radial] Respiratory 12 13 13 Rate Blood Pressure O2 Sat by Pulse 96 96 96 Oximetry 03/19/19 03/19/19 03/19/19 16:00 16:10 16:20 Temperature Pulse Rate 77 78 81 Pulse Rate [ Right Radial] Respiratory 13 12 13 Rate Blood Pressure 119/81 O2 Sat by Pulse 96 96 96 Oximetry 03/19/19 03/19/19 03/19/19 16:30 16:40 16:50 Temperature Pulse Rate 77 77 81 Pulse Rate [ Right Radial] Respiratory 13 12 13 Rate Blood Pressure O2 Sat by Pulse 97 98 96 Oximetry 03/19/19 03/19/19 03/19/19 17:00 17:10 17:20 Temperature Pulse Rate 75 88 70 Pulse Rate [ Right Radial] Respiratory 12 20 12 Rate Blood Pressure 127/76 O2 Sat by Pulse 97 99 97 Oximetry 03/19/19 03/19/19 03/19/19 17:30 17:40 17:50 Temperature Pulse Rate 78 81 83 Pulse Rate [ Right Radial] Respiratory 14 14 14 Rate Blood Pressure O2 Sat by Pulse 98 98 97 Oximetry 03/19/19 03/19/19 03/19/19 18:00 18:10 18:20 Temperature Pulse Rate 87 113 H 99 H Pulse Rate [ Right Radial] Respiratory 18 20 27 H Rate Blood Pressure 118/74 O2 Sat by Pulse 98 97 97 Oximetry 03/19/19 03/19/19 03/19/19 18:30 18:40 18:50 Temperature Pulse Rate 81 90 80 Pulse Rate [ Right Radial] Respiratory 13 15 13 Rate Blood Pressure O2 Sat by Pulse 96 97 97 Oximetry 03/19/19 03/19/19 03/19/19 19:00 19:10 19:20 Temperature Pulse Rate 86 85 88 Pulse Rate [ Right Radial] Respiratory 28 H 15 16 Rate Blood Pressure 129/86 O2 Sat by Pulse 97 93 L 93 L Oximetry 03/19/19 03/19/19 03/19/19 19:30 19:40 19:50 Temperature Pulse Rate 94 H 77 81 Pulse Rate [ Right Radial] Respiratory 25 H 13 16 Rate Blood Pressure O2 Sat by Pulse 96 94 L 92 L Oximetry 03/19/19 03/19/19 03/19/19 20:00 20:10 20:20 Temperature 98.1 F Pulse Rate 79 78 86 Pulse Rate [ Right Radial] Respiratory 15 15 16 Rate Blood Pressure 121/77 O2 Sat by Pulse 94 L 93 L 93 L Oximetry 03/19/19 03/19/19 03/19/19 20:30 20:40 20:50 Temperature Pulse Rate 81 79 78 Pulse Rate [ Right Radial] Respiratory 15 15 15 Rate Blood Pressure O2 Sat by Pulse 93 L 93 L 95 Oximetry 03/19/19 03/19/19 03/19/19 21:00 21:10 21:20 Temperature Pulse Rate 92 H 83 80 Pulse Rate [ Right Radial] Respiratory 20 16 16 Rate Blood Pressure O2 Sat by Pulse 98 97 94 L Oximetry 03/19/19 03/19/19 03/19/19 21:30 21:40 21:50 Temperature Pulse Rate 76 90 78 Pulse Rate [ Right Radial] Respiratory 13 23 16 Rate Blood Pressure O2 Sat by Pulse 95 96 93 L Oximetry 03/19/19 03/19/19 03/19/19 22:00 22:10 22:20 Temperature Pulse Rate 77 94 H 90 Pulse Rate [ Right Radial] Respiratory 10 L 16 17 Rate Blood Pressure O2 Sat by Pulse 99 96 92 L Oximetry 03/19/19 03/19/19 03/19/19 22:30 22:33 22:36 Temperature Pulse Rate 95 H 90 Pulse Rate [ 77 Right Radial] Respiratory 16 16 15 Rate Blood Pressure O2 Sat by Pulse 91 L 91 L Oximetry 03/19/19 03/19/19 03/19/19 22:40 22:50 23:00 Temperature Pulse Rate 91 H 90 92 H Pulse Rate [ Right Radial] Respiratory 16 16 16 Rate Blood Pressure O2 Sat by Pulse 91 L 91 L 91 L Oximetry 03/19/19 03/19/19 03/19/19 23:10 23:20 23:30 Temperature Pulse Rate 87 90 90 Pulse Rate [ Right Radial] Respiratory 15 16 16 Rate Blood Pressure O2 Sat by Pulse 93 L 91 L 93 L Oximetry 03/19/19 03/19/19 03/20/19 23:40 23:50 00:00 Temperature 98.2 F Pulse Rate 86 88 92 H Pulse Rate [ Right Radial] Respiratory 14 16 18 Rate Blood Pressure 141/78 O2 Sat by Pulse 94 L 92 L 95 Oximetry 03/20/19 03/20/19 03/20/19 00:10 00:20 00:30 Temperature Pulse Rate 88 86 87 Pulse Rate [ Right Radial] Respiratory 15 15 15 Rate Blood Pressure O2 Sat by Pulse 95 93 L 94 L Oximetry 03/20/19 03/20/19 03/20/19 00:40 00:50 01:00 Temperature Pulse Rate 87 86 86 Pulse Rate [ Right Radial] Respiratory 18 16 17 Rate Blood Pressure O2 Sat by Pulse 93 L 93 L 94 L Oximetry 03/20/19 03/20/19 03/20/19 01:10 01:20 01:30 Temperature Pulse Rate 92 H 90 87 Pulse Rate [ Right Radial] Respiratory 15 17 17 Rate Blood Pressure O2 Sat by Pulse 95 93 L 93 L Oximetry 03/20/19 03/20/19 03/20/19 01:40 01:50 02:00 Temperature Pulse Rate 86 86 97 H Pulse Rate [ Right Radial] Respiratory 14 16 23 Rate Blood Pressure O2 Sat by Pulse 93 L 96 96 Oximetry 03/20/19 03/20/19 03/20/19 02:10 02:20 02:30 Temperature Pulse Rate 95 H 88 86 Pulse Rate [ Right Radial] Respiratory 20 14 15 Rate Blood Pressure O2 Sat by Pulse 96 91 L 98 Oximetry 03/20/19 03/20/19 03/20/19 02:40 02:50 03:00 Temperature Pulse Rate 96 H 96 H 110 H Pulse Rate [ Right Radial] Respiratory 18 17 22 Rate Blood Pressure O2 Sat by Pulse 91 L 90 L 93 L Oximetry 03/20/19 03/20/19 03/20/19 03:10 03:20 03:30 Temperature Pulse Rate 93 H 91 H 92 H Pulse Rate [ Right Radial] Respiratory 17 15 14 Rate Blood Pressure O2 Sat by Pulse 90 L 90 L 90 L Oximetry 03/20/19 03/20/19 03/20/19 03:40 03:50 03:59 Temperature Pulse Rate 93 H 89 89 Pulse Rate [ Right Radial] Respiratory 15 15 16 Rate Blood Pressure O2 Sat by Pulse 91 L 92 L 91 L Oximetry 03/20/19 03/20/19 03/20/19 04:00 04:10 04:20 Temperature 98.6 F Pulse Rate 89 96 H 90 Pulse Rate [ Right Radial] Respiratory 14 31 H Rate Blood Pressure 146/120 H O2 Sat by Pulse 95 91 L Oximetry 03/20/19 03/20/19 03/20/19 04:30 04:40 04:50 Temperature Pulse Rate 99 H 88 92 H Pulse Rate [ Right Radial] Respiratory 34 H 14 Rate Blood Pressure O2 Sat by Pulse 97 95 91 L Oximetry 03/20/19 03/20/19 03/20/19 05:00 05:10 05:20 Temperature Pulse Rate 87 95 H 88 Pulse Rate [ Right Radial] Respiratory 15 11 L Rate Blood Pressure O2 Sat by Pulse 96 96 93 L Oximetry 03/20/19 03/20/19 03/20/19 05:30 05:40 05:50 Temperature Pulse Rate 87 91 H 96 H Pulse Rate [ Right Radial] Respiratory 23 11 L 9 L Rate Blood Pressure O2 Sat by Pulse 92 L 95 91 L Oximetry 03/20/19 03/20/19 03/20/19 06:00 06:10 06:20 Temperature Pulse Rate 86 87 88 Pulse Rate [ Right Radial] Respiratory 13 13 17 Rate Blood Pressure O2 Sat by Pulse 92 L 93 L 92 L Oximetry 03/20/19 03/20/19 03/20/19 06:30 06:40 06:50 Temperature Pulse Rate 91 H 96 H 104 H Pulse Rate [ Right Radial] Respiratory 13 34 H Rate Blood Pressure O2 Sat by Pulse 94 L 93 L 92 L Oximetry 03/20/19 03/20/19 03/20/19 07:00 07:10 07:20 Temperature Pulse Rate 98 H 81 95 H Pulse Rate [ Right Radial] Respiratory 21 15 22 Rate Blood Pressure O2 Sat by Pulse 92 L 99 94 L Oximetry 03/20/19 07:59 Temperature Pulse Rate 101 H Pulse Rate [ Right Radial] Respiratory Rate Blood Pressure O2 Sat by Pulse Oximetry
--- NOTE | 2019-03-20 09:03 | CP.PCM.PN ---
Subjective - Date & Time of Evaluation Date of Evaluation: 03/20/19 Time of Evaluation: 08:59 - Subjective Subjective: General Surgery: Dr Bowden Pt S&E in ICU. Resting comfortably. POD#1 s/p transverse colectomy. PT reports pain is well controlled. Denies any nausea, vomiting, fevers or chills. Making adequate urine. Hemodynamically stable. Up for transfer to med/surg floor. Objective - Vital Signs/Intake and Output Vital Signs (last 24 hours): Temp Pulse Resp BP Pulse Ox 98.6 F 101 H 22 146/120 H 94 L 03/20/19 04:00 03/20/19 07:59 03/20/19 07:20 03/20/19 04:00 03/20/19 07:20 Intake and Output: 03/20/19 03/20/19 06:59 18:59 Intake Total 1600 1400 Output Total 700 Balance 1600 700 - Medications Medications: Current Medications Acetaminophen (Tylenol 325mg Tab) 650 mg PO Q6H PRN PRN Reason: Pain, Mild (1-3) Albuterol/Ipratropium (Duoneb 3 Mg/0.5 Mg (3 Ml) Ud) 3 ml IH [id number] ROSALES Last Admin: 03/20/19 07:30 Dose: 3 ml Heparin Sodium (Porcine) (Heparin) 5,000 units SC Q8 ROSALES; Protocol Hydromorphone HCl (Dilaudid) 0.5 mg IVP Q15M PRN PRN Reason: Pain, Moderate/Severe (4-10) Hydromorphone HCl (Dilaudid) 1 mg IVP Q4H PRN PRN Reason: Pain, moderate (4-7) Last Admin: 03/20/19 05:41 Dose: 1 mg Lactated Ringer's (Lactated Ringer's) 1,000 mls @ 125 mls/hr IV .Q8H ROSALES Last Admin: 03/20/19 05:38 Dose: 125 mls/hr Ondansetron HCl (Zofran Inj) 4 mg IVP ONCE PRN PRN Reason: Nausea/Vomiting Ondansetron HCl (Zofran Inj) 4 mg IVP Q6 PRN PRN Reason: Nausea/Vomiting Pantoprazole Sodium (Protonix Inj) 40 mg IVP DAILY ROSALES - Labs Labs: 03/20/19 06:40 03/20/19 06:40 - Constitutional Appears: Non-toxic, No Acute Distress - Head Exam Head Exam: NORMAL INSPECTION - Eye Exam Eye Exam: Normal appearance - ENT Exam ENT Exam: Normal Exam - Respiratory Exam Respiratory Exam: absent: Respiratory Distress - Cardiovascular Exam Cardiovascular Exam: REGULAR RHYTHM. absent: Tachycardia - GI/Abdominal Exam GI & Abdominal Exam: Soft, Tenderness (post-surgical and appropriate). absent: Distended, Rebound - Neurological Exam Neurological Exam: Alert, Awake, Oriented x3 - Psychiatric Exam Psychiatric exam: Normal Affect, Normal Mood - Skin Skin Exam: Normal Color, Warm Assessment and Plan - Assessment and Plan (Free Text) Assessment: 63M POD#1 s/p transverse colectomy Plan: ok for transfer to floor d/c paul d/c TLC d/c lama will start CLD OOB and ambulate will resume transplant medications d/w Dr Kal Downing, PGY4
[2019-03-20] MEDS ORDERED: Albuterol HFA 90 mcg/actuation (8 g) IH PRN (09:06)
[2019-03-20] MEDS: Oxycodone/Acetaminophen 5/325 mg Tab PO PRN ×2 (09:41→14:55)
[2019-03-20] MEDS ORDERED: Albuterol 0.083% Inhal Sol (2.5 mg/3 mL) UD IH PRN (09:45)
--- NOTE | 2019-03-20 09:58 | CP.CCUPN ---
<Maycol St - Last Filed: 03/20/19 12:12> CCU Subjective - Physician Review Subjective (Free Text): Maycol St DO, PGY-1 MICU Progress Note for Dr. Gan Patient was seen and examined at bedside this AM. He reports some intermittent abdominal pain throughout the night that is improved with dilaudid. He otherwise offers no additional complaints and denies fever/chills, CP, SOB, nausea/vomiting, or urinary complaints. CCU Objective - Vital Signs / Intake & Output Vital Signs (Last 4 hours): Vital Signs Pulse Resp BP Pulse Ox 03/20/19 09:41 97 H 117/77 03/20/19 07:59 101 H 03/20/19 07:20 95 H 22 94 L 03/20/19 07:10 81 15 99 03/20/19 07:00 98 H 21 92 L 03/20/19 06:50 104 H 34 H 92 L 03/20/19 06:40 96 H 93 L 03/20/19 06:30 91 H 13 94 L 03/20/19 06:20 88 17 92 L 03/20/19 06:10 87 13 93 L 03/20/19 06:00 86 13 92 L Intake and Output (Last 8hrs): Intake & Output 03/19/19 03/20/19 03/20/19 22:59 06:59 14:59 Intake Total 645 1600 1400 Output Total 900 700 Balance -255 1600 700 Weight 145 lb 150 lb Intake: IV 645 1600 1400 Left Forearm 10 1600 Right Forearm 10 Right Internal Jugular 625 1400 Oral 0 0 Output: Urine 900 700 Urethral (Fontaine) 900 700 Stool 0 Other: Voiding Method Toilet # Bowel Movements 0 - Physical Exam Head: Positive for: Atraumatic, Normocephalic Pupils: Positive for: PERRL Extroacular Muscles: Positive for: EOMI Mouth: Positive for: Moist Mucous Membranes Pharnyx: Positive for: Normal. Negative for: ERYTHEMA, EXUDATE Respiratory/Chest: Positive for: Clear to Auscultation, Good Air Exchange. Negative for: Respiratory Distress, Accessory Muscle Use, Wheezes, Rales, Rhonchi Cardiovascular: Positive for: Regular Rate and Rhythm, Normal S1, S2. Negative for: Murmurs, Rub, Gallop Abdomen: Positive for: Tenderness (mild tenderness to palpation, greatest near surgical site), Other (mid-abdominal incision with surrounding lara, clean, dry, intact). Negative for: Distention, Normal Bowel Sounds (hypoactive), Rebound Upper Extremity: Positive for: Normal Inspection. Negative for: Cyanosis, Edema Lower Extremity: Positive for: Normal Inspection. Negative for: Edema Neurological: Positive for: GCS=15, CN II-XII Intact, Speech Normal Skin: Positive for: Warm, Dry. Negative for: Rashes Psychiatric: Positive for: Alert, Oriented x 3, Normal Insight, Normal Concentration - Medications Active Medications: Active Medications Generic Name Dose Route Start Last Admin Trade Name Freq PRN Reason Stop Dose Admin Acetaminophen 650 mg 03/19/19 12:28 Tylenol 325mg Tab PO Q6H PRN Pain, Mild (1-3) Albuterol Sulfate 2.5 mg 03/20/19 09:45 Albuterol 0.083% Inhal Tanisha (2.5 Mg/3 Ml) Ud IH [id number] PRN Shortness of Breath Albuterol/Ipratropium 3 ml 03/19/19 20:00 03/20/19 07:30 Duoneb 3 Mg/0.5 Mg (3 Ml) Ud IH 3 ml [id number] ROSALES Administration Amlodipine Besylate 5 mg 03/20/19 10:00 03/20/19 09:41 Norvasc PO 5 mg BID ROSALES Administration Finasteride 5 mg 03/20/19 10:00 03/20/19 09:41 Proscar PO 5 mg DAILY ROSALES Administration Heparin Sodium (Porcine) 5,000 units 03/20/19 08:00 03/20/19 09:16 Heparin SC 5,000 units Q8 ROSALES Administration Protocol Home Med 3 unit 03/20/19 10:00 Home Med PO BID ROSALES Hydromorphone HCl 1 mg 03/19/19 12:28 03/20/19 09:15 Dilaudid IVP 1 mg Q4H PRN Administration Pain, moderate (4-7) Lactated Ringer's 1,000 mls @ 50 mls/hr 03/20/19 09:04 Lactated Ringer's IV .Q20H ROSALES Losartan Potassium 50 mg 03/20/19 18:00 Cozaar PO QPM ROSALES Ondansetron HCl 4 mg 03/19/19 12:09 Zofran Inj IVP ONCE PRN Nausea/Vomiting Ondansetron HCl 4 mg 03/19/19 12:28 Zofran Inj IVP Q6 PRN Nausea/Vomiting Oxycodone/Acetaminophen 1 tab 03/20/19 09:09 03/20/19 09:41 Percocet 5/325 Mg Tab PO 03/23/19 09:10 1 tab Q4H PRN Administration Pain, Mild (1-3) Pantoprazole Sodium 40 mg 03/20/19 10:00 03/20/19 09:15 Protonix Inj IVP 40 mg DAILY ROSALES Administration Prednisone 5 mg 03/20/19 10:00 03/20/19 09:41 Prednisone Tab PO 5 mg QAM ROSALES Administration Tacrolimus 2 mg 03/20/19 10:00 03/20/19 09:41 Prograf Cap PO 2 mg QAM ROSALES Administration Tacrolimus 1 mg 03/20/19 18:00 Prograf Cap PO QPM ROSALES Tamsulosin HCl 0.4 mg 03/20/19 18:00 Flomax PO QPM ROSALES - Patient Studies Lab Studies: Lab Studies 03/20/19 03/20/19 03/20/19 Range/Units 08:06 06:40 06:40 WBC 10.3 D (4.5-11.0) 10^3/uL RBC 3.71 (3.5-6.1) 10^6/uL Hgb 10.1 L (14.0-18.0) g/dL Hct 30.9 L (42.0-52.0) % MCV 83.3 (80.0-105.0) fl MCH 27.2 (25.0-35.0) pg MCHC 32.7 (31.0-37.0) g/dl RDW 14.7 H (11.5-14.5) % Plt Count 116 L (120.0-450.0) 10^3/uL MPV 8.7 (7.0-11.0) fl Neut % (Auto) 81.9 H (50.0-68.0) % Lymph % (Auto) 12.2 L (22.0-35.0) % [place] % (Auto) 5.7 (1.0-6.0) % Eos % (Auto) 0.1 L (1.5-5.0) % Baso % (Auto) 0.1 (0.0-3.0) % Lymph # (Auto) 1.3 (1.2-3.4) [place] # (Auto) 0.6 (0.1-0.6) Eos # (Auto) 0.0 (0.0-0.7) Baso # (Auto) 0.01 (0.0-2.0) K/mm3 Absolute Neuts (auto) 8.42 H (1.4-6.5) Neutrophils % (Manual) (50.0-70.0) % Band Neutrophils % (0-2) % Lymphocytes % (Manual) (22.0-35.0) % Monocytes % (Manual) (1.0-6.0) % Sodium 135 (132-148) mmol/L Potassium 4.0 (3.6-5.0) mmol/L Chloride 103 (98-107) mmol/L Carbon Dioxide 25 (21-33) mmol/L Anion Gap 11 (10-20) BUN 15 (7-21) mg/dL Creatinine 0.7 L (0.8-1.5) mg/dl Est GFR ( Amer) > 60 Est GFR (Non-Af Amer) > 60 Random Glucose 124 H (70-110) mg/dL Calcium 8.0 L (8.4-10.5) mg/dL Phosphorus 2.8 (2.5-4.5) mg/dL Magnesium 1.8 (1.7-2.2) mg/dL Total Bilirubin 2.1 H (0.2-1.3) mg/dL AST 21 (17-59) U/L ALT 34 (7-56) U/L Alkaline Phosphatase 68 (38-126) U/L Total Protein 5.2 L (5.8-8.3) g/dL Albumin 2.8 L (3.0-4.8) g/dL Globulin 2.4 gm/dL Albumin/Globulin Ratio 1.2 (1.1-1.8) 03/19/19 03/19/19 Range/Units 18:00 18:00 WBC 15.4 H (4.5-11.0) 10^3/uL RBC 3.94 (3.5-6.1) 10^6/uL Hgb 10.7 L D (14.0-18.0) g/dL Hct 32.5 L (42.0-52.0) % MCV 82.5 (80.0-105.0) fl MCH 27.2 (25.0-35.0) pg MCHC 32.9 (31.0-37.0) g/dl RDW 14.3 (11.5-14.5) % Plt Count 119 L (120.0-450.0) 10^3/uL MPV 8.8 (7.0-11.0) fl Neut % (Auto) 90.6 H (50.0-68.0) % Lymph % (Auto) 5.2 L (22.0-35.0) % [place] % (Auto) 4.2 (1.0-6.0) % Eos % (Auto) 0.0 L (1.5-5.0) % Baso % (Auto) 0.0 (0.0-3.0) % Lymph # (Auto) 0.8 L (1.2-3.4) [place] # (Auto) 0.6 (0.1-0.6) Eos # (Auto) 0.0 (0.0-0.7) Baso # (Auto) 0.00 (0.0-2.0) K/mm3 Absolute Neuts (auto) 13.92 H (1.4-6.5) Neutrophils % (Manual) 86 H (50.0-70.0) % Band Neutrophils % 3 H (0-2) % Lymphocytes % (Manual) 8 L (22.0-35.0) % Monocytes % (Manual) 3 (1.0-6.0) % Sodium 136 (132-148) mmol/L Potassium 4.1 (3.6-5.0) mmol/L Chloride 104 (98-107) mmol/L Carbon Dioxide 24 (21-33) mmol/L Anion Gap 11 (10-20) BUN 17 (7-21) mg/dL Creatinine 0.7 L (0.8-1.5) mg/dl Est GFR ( Amer) > 60 Est GFR (Non-Af Amer) > 60 Random Glucose 142 H (70-110) mg/dL Calcium 7.8 L (8.4-10.5) mg/dL Phosphorus 4.4 (2.5-4.5) mg/dL Magnesium 1.1 L (1.7-2.2) mg/dL Total Bilirubin 2.1 H (0.2-1.3) mg/dL AST 26 (17-59) U/L ALT 35 (7-56) U/L Alkaline Phosphatase 65 (38-126) U/L Total Protein 5.2 L (5.8-8.3) g/dL Albumin 2.9 L (3.0-4.8) g/dL Globulin 2.4 gm/dL Albumin/Globulin Ratio 1.2 (1.1-1.8) Laboratory Results - last 24 hr 03/19/19 03/19/19 03/20/19 18:00 18:00 06:40 WBC 15.4 H 10.3 D RBC 3.94 3.71 Hgb 10.7 L D 10.1 L Hct 32.5 L 30.9 L MCV 82.5 83.3 MCH 27.2 27.2 MCHC 32.9 32.7 RDW 14.3 14.7 H Plt Count 119 L 116 L MPV 8.8 8.7 Neut % (Auto) 90.6 H 81.9 H Lymph % (Auto) 5.2 L 12.2 L [place]land % (Auto) 4.2 5.7 Eos % (Auto) 0.0 L 0.1 L Baso % (Auto) 0.0 0.1 Lymph # (Auto) 0.8 L 1.3 [place]land # (Auto) 0.6 0.6 Eos # (Auto) 0.0 0.0 Baso # (Auto) 0.00 0.01 Absolute Neuts (auto) 13.92 H 8.42 H Neutrophils % (Manual) 86 H Band Neutrophils % 3 H Lymphocytes % (Manual) 8 L Monocytes % (Manual) 3 Sodium 136 Potassium 4.1 Chloride 104 Carbon Dioxide 24 Anion Gap 11 BUN 17 Creatinine 0.7 L Est GFR ( Amer) > 60 Est GFR (Non-Af Amer) > 60 Random Glucose 142 H Calcium 7.8 L Phosphorus 4.4 Magnesium 1.1 L Total Bilirubin 2.1 H AST 26 ALT 35 Alkaline Phosphatase 65 Total Protein 5.2 L Albumin 2.9 L Globulin 2.4 Albumin/Globulin Ratio 1.2 03/20/19 03/20/19 06:40 08:06 WBC RBC Hgb Hct MCV MCH MCHC RDW Plt Count MPV Neut % (Auto) Lymph % (Auto) [place] % (Auto) Eos % (Auto) Baso % (Auto) Lymph # (Auto) [place] # (Auto) Eos # (Auto) Baso # (Auto) Absolute Neuts (auto) Neutrophils % (Manual) Band Neutrophils % Lymphocytes % (Manual) Monocytes % (Manual) Sodium 135 Potassium 4.0 Chloride 103 Carbon Dioxide 25 Anion Gap 11 BUN 15 Creatinine 0.7 L Est GFR ( Amer) > 60 Est GFR (Non-Af Amer) > 60 Random Glucose 124 H Calcium 8.0 L Phosphorus 2.8 Magnesium 1.8 Total Bilirubin 2.1 H AST 21 ALT 34 Alkaline Phosphatase 68 Total Protein 5.2 L Albumin 2.8 L Globulin 2.4 Albumin/Globulin Ratio 1.2 Radiology Impressions: Radiology Impressions Chest X-Ray 03/19/19 12:28 IMPRESSION: Right IJ line terminates in the SVC. There is no pneumothorax Critical Care Progress Note - Nutrition Nutrition: Nutrition Category Date Time Status Liquid Diet [DIET] Diets 03/20/19 Breakfast Ordered Assessment/Plan - Assessment and Plan (Free Text) Assessment: 63 yo M with PMH of COPD, HTN, BPH, HLD, pheochromocytoma (s/p adrenalectomy), renal failure s/p renal transplant, unspecified renal mass s/p biopsy and recently diagnosed transverse colon mass who presents after colonic mass excision with partial colectomy. Patient was extubated without complication in PACU. Nephrectomy was planned for today but given the complexity secondary to adhesions. This will be rescheduled for a later date in favor of a flank approach. Patient remained stable in MICU overnight without acute events. Plan: AM labs, CXR reviewed No concerning findings May continue duonebs q6h6 for COPD Advance to clear liquid diet per surgery recs Patient was not hypotensive overnight, no role for steroids at this time Continue to monitor closely for signs of infection, including fever, as patient is on chronic immunosuppression Case discussed with surgery this AM, agree that patient is stable for transfer to surgical floor DVT/GI PPX: SCD/protonix Full Code Advance to clear liquid diet Stable, transfer to med/surg Patient seen, examined with, and plan confirmed with my attending Alexi Deng.Jaime. IM Resident PGY-1 Pager: [phone] <Hema Gan - Last Filed: 03/20/19 16:32> CCU Objective - Vital Signs / Intake & Output Intake and Output (Last 8hrs): Intake & Output 03/20/19 03/20/19 03/20/19 06:59 14:59 22:59 Intake Total 1600 1400 Output Total 700 Balance 1600 700 Weight 150 lb Intake: IV 1600 1400 Left Forearm 1600 Right Internal Jugular 1400 Oral 0 Output: Urine 700 Urethral (Fontaine) 700 Stool 0 - Medications Active Medications: Active Medications Generic Name Dose Route Start Last Admin Trade Name Freq PRN Reason Stop Dose Admin Acetaminophen 650 mg 03/19/19 12:28 Tylenol 325mg Tab PO Q6H PRN Pain, Mild (1-3) Albuterol Sulfate 2.5 mg 03/20/19 09:45 Albuterol 0.083% Inhal Tanisha (2.5 Mg/3 Ml) Ud IH [id number] PRN Shortness of Breath Albuterol/Ipratropium 3 ml 03/19/19 20:00 03/20/19 13:17 Duoneb 3 Mg/0.5 Mg (3 Ml) Ud IH 3 ml [id number] ROSALES Administration Amlodipine Besylate 5 mg 03/20/19 10:00 03/20/19 09:41 Norvasc PO 5 mg BID ROSALES Administration Finasteride 5 mg 03/20/19 10:00 03/20/19 09:41 Proscar PO 5 mg DAILY ROSALES Administration Heparin Sodium (Porcine) 5,000 units 03/20/19 08:00 03/20/19 14:55 Heparin SC 5,000 units Q8 ROSALES Administration Protocol Home Med 3 unit 03/20/19 10:00 03/20/19 10:30 Home Med PO 3 unit BID ROSALES Administration Hydromorphone HCl 1 mg 03/19/19 12:28 03/20/19 14:54 Dilaudid IVP 1 mg Q4H PRN Administration Pain, moderate (4-7) Lactated Ringer's 1,000 mls @ 50 mls/hr 03/20/19 09:04 03/20/19 09:00 Lactated Ringer's IV 50 mls/hr .Q20H ROSALES Administration Losartan Potassium 50 mg 03/20/19 18:00 Cozaar PO QPM ROSALES Ondansetron HCl 4 mg 03/19/19 12:28 Zofran Inj IVP Q6 PRN Nausea/Vomiting Oxycodone/Acetaminophen 1 tab 03/20/19 09:09 03/20/19 14:55 Percocet 5/325 Mg Tab PO 03/23/19 09:10 1 tab Q4H PRN Administration Pain, Mild (1-3) Pantoprazole Sodium 40 mg 03/20/19 10:00 03/20/19 09:15 Protonix Inj IVP 40 mg DAILY ROSALES Administration Prednisone 5 mg 03/20/19 10:00 03/20/19 09:41 Prednisone Tab PO 5 mg QAM ROSALES Administration Tacrolimus 2 mg 03/20/19 10:00 03/20/19 09:41 Prograf Cap PO 2 mg QAM ROSALES Administration Tacrolimus 1 mg 03/20/19 18:00 Prograf Cap PO QPM ROSALES Tamsulosin HCl 0.4 mg 03/20/19 18:00 Flomax PO QPM ROSALES - Patient Studies Lab Studies: Microbiology Studies 03/19/19 06:45 MRSA Culture (Admit) - Final Nose MRSA NOT DETECTED Lab Studies 03/20/19 03/20/19 03/20/19 Range/Units 08:06 06:40 06:40 WBC 10.3 D (4.5-11.0) 10^3/uL RBC 3.71 (3.5-6.1) 10^6/uL Hgb 10.1 L (14.0-18.0) g/dL Hct 30.9 L (42.0-52.0) % MCV 83.3 (80.0-105.0) fl MCH 27.2 (25.0-35.0) pg MCHC 32.7 (31.0-37.0) g/dl RDW 14.7 H (11.5-14.5) % Plt Count 116 L (120.0-450.0) 10^3/uL MPV 8.7 (7.0-11.0) fl Neut % (Auto) 81.9 H (50.0-68.0) % Lymph % (Auto) 12.2 L (22.0-35.0) % [place] % (Auto) 5.7 (1.0-6.0) % Eos % (Auto) 0.1 L (1.5-5.0) % Baso % (Auto) 0.1 (0.0-3.0) % Lymph # (Auto) 1.3 (1.2-3.4) [place] # (Auto) 0.6 (0.1-0.6) Eos # (Auto) 0.0 (0.0-0.7) Baso # (Auto) 0.01 (0.0-2.0) K/mm3 Absolute Neuts (auto) 8.42 H (1.4-6.5) Neutrophils % (Manual) (50.0-70.0) % Band Neutrophils % (0-2) % Lymphocytes % (Manual) (22.0-35.0) % Monocytes % (Manual) (1.0-6.0) % Sodium 135 (132-148) mmol/L Potassium 4.0 (3.6-5.0) mmol/L Chloride 103 (98-107) mmol/L Carbon Dioxide 25 (21-33) mmol/L Anion Gap 11 (10-20) BUN 15 (7-21) mg/dL Creatinine 0.7 L (0.8-1.5) mg/dl Est GFR ( Amer) > 60 Est GFR (Non-Af Amer) > 60 Random Glucose 124 H (70-110) mg/dL Calcium 8.0 L (8.4-10.5) mg/dL Phosphorus 2.8 (2.5-4.5) mg/dL Magnesium 1.8 (1.7-2.2) mg/dL Total Bilirubin 2.1 H (0.2-1.3) mg/dL AST 21 (17-59) U/L ALT 34 (7-56) U/L Alkaline Phosphatase 68 (38-126) U/L Total Protein 5.2 L (5.8-8.3) g/dL Albumin 2.8 L (3.0-4.8) g/dL Globulin 2.4 gm/dL Albumin/Globulin Ratio 1.2 (1.1-1.8) 03/19/19 03/19/19 Range/Units 18:00 18:00 WBC 15.4 H (4.5-11.0) 10^3/uL RBC 3.94 (3.5-6.1) 10^6/uL Hgb 10.7 L D (14.0-18.0) g/dL Hct 32.5 L (42.0-52.0) % MCV 82.5 (80.0-105.0) fl MCH 27.2 (25.0-35.0) pg MCHC 32.9 (31.0-37.0) g/dl RDW 14.3 (11.5-14.5) % Plt Count 119 L (120.0-450.0) 10^3/uL MPV 8.8 (7.0-11.0) fl Neut % (Auto) 90.6 H (50.0-68.0) % Lymph % (Auto) 5.2 L (22.0-35.0) % [place] % (Auto) 4.2 (1.0-6.0) % Eos % (Auto) 0.0 L (1.5-5.0) % Baso % (Auto) 0.0 (0.0-3.0) % Lymph # (Auto) 0.8 L (1.2-3.4) [place] # (Auto) 0.6 (0.1-0.6) Eos # (Auto) 0.0 (0.0-0.7) Baso # (Auto) 0.00 (0.0-2.0) K/mm3 Absolute Neuts (auto) 13.92 H (1.4-6.5) Neutrophils % (Manual) 86 H (50.0-70.0) % Band Neutrophils % 3 H (0-2) % Lymphocytes % (Manual) 8 L (22.0-35.0) % Monocytes % (Manual) 3 (1.0-6.0) % Sodium 136 (132-148) mmol/L Potassium 4.1 (3.6-5.0) mmol/L Chloride 104 (98-107) mmol/L Carbon Dioxide 24 (21-33) mmol/L Anion Gap 11 (10-20) BUN 17 (7-21) mg/dL Creatinine 0.7 L (0.8-1.5) mg/dl Est GFR ( Amer) > 60 Est GFR (Non-Af Amer) > 60 Random Glucose 142 H (70-110) mg/dL Calcium 7.8 L (8.4-10.5) mg/dL Phosphorus 4.4 (2.5-4.5) mg/dL Magnesium 1.1 L (1.7-2.2) mg/dL Total Bilirubin 2.1 H (0.2-1.3) mg/dL AST 26 (17-59) U/L ALT 35 (7-56) U/L Alkaline Phosphatase 65 (38-126) U/L Total Protein 5.2 L (5.8-8.3) g/dL Albumin 2.9 L (3.0-4.8) g/dL Globulin 2.4 gm/dL Albumin/Globulin Ratio 1.2 (1.1-1.8) Laboratory Results - last 24 hr 03/19/19 03/19/19 03/20/19 18:00 18:00 06:40 WBC 15.4 H 10.3 D RBC 3.94 3.71 Hgb 10.7 L D 10.1 L Hct 32.5 L 30.9 L MCV 82.5 83.3 MCH 27.2 27.2 MCHC 32.9 32.7 RDW 14.3 14.7 H Plt Count 119 L 116 L MPV 8.8 8.7 Neut % (Auto) 90.6 H 81.9 H Lymph % (Auto) 5.2 L 12.2 L [place] % (Auto) 4.2 5.7 Eos % (Auto) 0.0 L 0.1 L Baso % (Auto) 0.0 0.1 Lymph # (Auto) 0.8 L 1.3 [place] # (Auto) 0.6 0.6 Eos # (Auto) 0.0 0.0 Baso # (Auto) 0.00 0.01 Absolute Neuts (auto) 13.92 H 8.42 H Neutrophils % (Manual) 86 H Band Neutrophils % 3 H Lymphocytes % (Manual) 8 L Monocytes % (Manual) 3 Sodium 136 Potassium 4.1 Chloride 104 Carbon Dioxide 24 Anion Gap 11 BUN 17 Creatinine 0.7 L Est GFR ( Amer) > 60 Est GFR (Non-Af Amer) > 60 Random Glucose 142 H Calcium 7.8 L Phosphorus 4.4 Magnesium 1.1 L Total Bilirubin 2.1 H AST 26 ALT 35 Alkaline Phosphatase 65 Total Protein 5.2 L Albumin 2.9 L Globulin 2.4 Albumin/Globulin Ratio 1.2 03/20/19 03/20/19 06:40 08:06 WBC RBC Hgb Hct MCV MCH MCHC RDW Plt Count MPV Neut % (Auto) Lymph % (Auto) [place] % (Auto) Eos % (Auto) Baso % (Auto) Lymph # (Auto) [place] # (Auto) Eos # (Auto) Baso # (Auto) Absolute Neuts (auto) Neutrophils % (Manual) Band Neutrophils % Lymphocytes % (Manual) Monocytes % (Manual) Sodium 135 Potassium 4.0 Chloride 103 Carbon Dioxide 25 Anion Gap 11 BUN 15 Creatinine 0.7 L Est GFR ( Amer) > 60 Est GFR (Non-Af Amer) > 60 Random Glucose 124 H Calcium 8.0 L Phosphorus 2.8 Magnesium 1.8 Total Bilirubin 2.1 H AST 21 ALT 34 Alkaline Phosphatase 68 Total Protein 5.2 L Albumin 2.8 L Globulin 2.4 Albumin/Globulin Ratio 1.2 Radiology Impressions: Radiology Impressions Chest X-Ray 03/20/19 06:00 IMPRESSION: There is a small amount of free air beneath the right hemidiaphragm consistent with history of recent surgery Critical Care Progress Note - Nutrition Nutrition: Nutrition Category Date Time Status Liquid Diet [DIET] Diets 03/20/19 Breakfast Ordered Attending/Attestation - Attestation I have personally seen and examined this patient.: Yes I have fully participated in the care of the patient.: Yes I have reviewed all pertinent clinical information: Yes Notes (Text): 03/20/19 16:31 63 yo male with partial colectomy, now recovering well. cont with pulm toielt, IS, chest PT, OOB to chair, dvt/gi prophylaxis, pain control. once cleared by surgery--> may advance diet. ccm time 40 min
[2019-03-20] MEDS ORDERED: MYCOPHENOLIC ACID 180 MG PO SCH (10:00)
[2019-03-20] MEDS: MYCOPHENOLIC ACID 180 MG PO SCH ×2 (10:30→17:51)
--- NOTE | 2019-03-20 10:41 | RAD ---
Date of service: 03/20/2019 HISTORY: s/p surgery COMPARISON: 03/19/2019 TECHNIQUE: 1 view obtained. FINDINGS: LUNGS: No active pulmonary disease. PLEURA: No significant pleural effusion identified, no pneumothorax apparent. CARDIOVASCULAR: No aortic atherosclerotic calcification present. Normal cardiac size. No pulmonary vascular congestion. OSSEOUS STRUCTURES: No significant abnormalities. VISUALIZED UPPER ABDOMEN: There is a small amount of free air beneath the right hemidiaphragm consistent with history of recent surgery OTHER FINDINGS: None. IMPRESSION: There is a small amount of free air beneath the right hemidiaphragm consistent with history of recent surgery
--- NOTE | 2019-03-20 15:28 | HP ---
DATE OF EXAM: 03/20/2019 HISTORY OF PRESENT ILLNESS: A 63-year-old white male with a long history of hypertension, pheochromocytoma, kidney removed many years ago at [facility]. The patient has history of renal failure, treatment with a renal transplant. The patient in the last several months was found to have a transverse colon lesion, which is biopsy-positive adenocarcinoma. He is admitted for removal of this lesion. The patient also has a kidney mass indicative of a renal cell carcinoma. The patient will have attempt removal of this mass. The patient has history of COPD, also recent admission for bronchitis and exacerbation of asthmatic bronchitis and hypertension. The patient is admitted for surgery. REVIEW OF SYSTEMS CONSTITUTIONAL: Positive only for occasional cough and wheezing and sputum production. CARDIAC: Negative for palpitations, shortness of breath, chest pain. No lightheadedness or dizziness. NEUROLOGIC: Negative for syncope. GASTROINTESTINAL: Negative for hematochezia, melena, nausea, vomiting or diarrhea. PHYSICAL EXAMINATION GENERAL: Shows a well developed, well nourished white male, in no apparent distress. HEENT: Essentially within normal limits. HEART: Regular sinus rhythm. No S3, S4 or murmurs. CHEST: Clear to auscultation and percussion. EXTREMITIES: Without cyanosis, clubbing, or edema. NEUROLOGIC: Grossly intact. PLAN: Initial transverse colon resection and then possibly at the same following soon after a nephrectomy. Pranav Baltazar MD
--- NOTE | 2019-03-20 17:23 | PCM.URO ---
Urology Progress Note - Objective Lab Studies: Reviewed (new lama inserted / full note to be dictated please do not remove lama we will follow pt and remove the lama thanks) Lab Results Last 24 Hours: Laboratory Results - last 24 hr 03/19/19 03/19/19 03/20/19 18:00 18:00 06:40 WBC 15.4 H 10.3 D RBC 3.94 3.71 Hgb 10.7 L D 10.1 L Hct 32.5 L 30.9 L MCV 82.5 83.3 MCH 27.2 27.2 MCHC 32.9 32.7 RDW 14.3 14.7 H Plt Count 119 L 116 L MPV 8.8 8.7 Neut % (Auto) 90.6 H 81.9 H Lymph % (Auto) 5.2 L 12.2 L Tyler % (Auto) 4.2 5.7 Eos % (Auto) 0.0 L 0.1 L Baso % (Auto) 0.0 0.1 Lymph # (Auto) 0.8 L 1.3 Tyler # (Auto) 0.6 0.6 Eos # (Auto) 0.0 0.0 Baso # (Auto) 0.00 0.01 Absolute Neuts (auto) 13.92 H 8.42 H Neutrophils % (Manual) 86 H Band Neutrophils % 3 H Lymphocytes % (Manual) 8 L Monocytes % (Manual) 3 Sodium 136 Potassium 4.1 Chloride 104 Carbon Dioxide 24 Anion Gap 11 BUN 17 Creatinine 0.7 L Est GFR ( Amer) > 60 Est GFR (Non-Af Amer) > 60 Random Glucose 142 H Calcium 7.8 L Phosphorus 4.4 Magnesium 1.1 L Total Bilirubin 2.1 H AST 26 ALT 35 Alkaline Phosphatase 65 Total Protein 5.2 L Albumin 2.9 L Globulin 2.4 Albumin/Globulin Ratio 1.2 03/20/19 03/20/19 06:40 08:06 WBC RBC Hgb Hct MCV MCH MCHC RDW Plt Count MPV Neut % (Auto) Lymph % (Auto) Tyler % (Auto) Eos % (Auto) Baso % (Auto) Lymph # (Auto) Tyler # (Auto) Eos # (Auto) Baso # (Auto) Absolute Neuts (auto) Neutrophils % (Manual) Band Neutrophils % Lymphocytes % (Manual) Monocytes % (Manual) Sodium 135 Potassium 4.0 Chloride 103 Carbon Dioxide 25 Anion Gap 11 BUN 15 Creatinine 0.7 L Est GFR ( Amer) > 60 Est GFR (Non-Af Amer) > 60 Random Glucose 124 H Calcium 8.0 L Phosphorus 2.8 Magnesium 1.8 Total Bilirubin 2.1 H AST 21 ALT 34 Alkaline Phosphatase 68 Total Protein 5.2 L Albumin 2.8 L Globulin 2.4 Albumin/Globulin Ratio 1.2 Intake & Output: Intake & Output 03/19/19 03/20/19 03/20/19 18:59 06:59 18:59 Intake Total 655 1600 1400 Output Total 900 700 Balance -245 1600 700 Weight 150 lb Intake: IV 655 1600 1400 Left Forearm 10 1600 Right Forearm 10 Right Internal Jugular 625 1400 Oral 0 0 Output: Urine 900 700 Urethral (Lama) 900 700 Stool 0 Other: Voiding Method Toilet # Bowel Movements 0 Vital Signs: Vital Signs - 24 hr 03/19/19 03/19/19 03/19/19 17:30 17:40 17:50 Temperature Pulse Rate 78 81 83 Pulse Rate [ Right Radial] Respiratory 14 14 14 Rate Blood Pressure O2 Sat by Pulse 98 98 97 Oximetry 03/19/19 03/19/19 03/19/19 18:00 18:10 18:20 Temperature Pulse Rate 87 113 H 99 H Pulse Rate [ Right Radial] Respiratory 18 20 27 H Rate Blood Pressure 118/74 O2 Sat by Pulse 98 97 97 Oximetry 03/19/19 03/19/19 03/19/19 18:30 18:40 18:50 Temperature Pulse Rate 81 90 80 Pulse Rate [ Right Radial] Respiratory 13 15 13 Rate Blood Pressure O2 Sat by Pulse 96 97 97 Oximetry 03/19/19 03/19/19 03/19/19 19:00 19:10 19:20 Temperature Pulse Rate 86 85 88 Pulse Rate [ Right Radial] Respiratory 28 H 15 16 Rate Blood Pressure 129/86 O2 Sat by Pulse 97 93 L 93 L Oximetry 03/19/19 03/19/19 03/19/19 19:30 19:40 19:50 Temperature Pulse Rate 94 H 77 81 Pulse Rate [ Right Radial] Respiratory 25 H 13 16 Rate Blood Pressure O2 Sat by Pulse 96 94 L 92 L Oximetry 03/19/19 03/19/19 03/19/19 20:00 20:10 20:20 Temperature 98.1 F Pulse Rate 79 78 86 Pulse Rate [ Right Radial] Respiratory 15 15 16 Rate Blood Pressure 121/77 O2 Sat by Pulse 94 L 93 L 93 L Oximetry 03/19/19 03/19/19 03/19/19 20:30 20:40 20:50 Temperature Pulse Rate 81 79 78 Pulse Rate [ Right Radial] Respiratory 15 15 15 Rate Blood Pressure O2 Sat by Pulse 93 L 93 L 95 Oximetry 03/19/19 03/19/19 03/19/19 21:00 21:10 21:20 Temperature Pulse Rate 92 H 83 80 Pulse Rate [ Right Radial] Respiratory 20 16 16 Rate Blood Pressure O2 Sat by Pulse 98 97 94 L Oximetry 03/19/19 03/19/19 03/19/19 21:30 21:40 21:50 Temperature Pulse Rate 76 90 78 Pulse Rate [ Right Radial] Respiratory 13 23 16 Rate Blood Pressure O2 Sat by Pulse 95 96 93 L Oximetry 03/19/19 03/19/19 03/19/19 22:00 22:10 22:20 Temperature Pulse Rate 77 94 H 90 Pulse Rate [ Right Radial] Respiratory 10 L 16 17 Rate Blood Pressure O2 Sat by Pulse 99 96 92 L Oximetry 03/19/19 03/19/19 03/19/19 22:30 22:33 22:36 Temperature Pulse Rate 95 H 90 Pulse Rate [ 77 Right Radial] Respiratory 16 16 15 Rate Blood Pressure O2 Sat by Pulse 91 L 91 L Oximetry 03/19/19 03/19/19 03/19/19 22:40 22:50 23:00 Temperature Pulse Rate 91 H 90 92 H Pulse Rate [ Right Radial] Respiratory 16 16 16 Rate Blood Pressure O2 Sat by Pulse 91 L 91 L 91 L Oximetry 03/19/19 03/19/19 03/19/19 23:10 23:20 23:30 Temperature Pulse Rate 87 90 90 Pulse Rate [ Right Radial] Respiratory 15 16 16 Rate Blood Pressure O2 Sat by Pulse 93 L 91 L 93 L Oximetry 03/19/19 03/19/19 03/20/19 23:40 23:50 00:00 Temperature 98.2 F Pulse Rate 86 88 92 H Pulse Rate [ Right Radial] Respiratory 14 16 18 Rate Blood Pressure 141/78 O2 Sat by Pulse 94 L 92 L 95 Oximetry 03/20/19 03/20/19 03/20/19 00:10 00:20 00:30 Temperature Pulse Rate 88 86 87 Pulse Rate [ Right Radial] Respiratory 15 15 15 Rate Blood Pressure O2 Sat by Pulse 95 93 L 94 L Oximetry 03/20/19 03/20/19 03/20/19 00:40 00:50 01:00 Temperature Pulse Rate 87 86 86 Pulse Rate [ Right Radial] Respiratory 18 16 17 Rate Blood Pressure O2 Sat by Pulse 93 L 93 L 94 L Oximetry 03/20/19 03/20/19 03/20/19 01:10 01:20 01:30 Temperature Pulse Rate 92 H 90 87 Pulse Rate [ Right Radial] Respiratory 15 17 17 Rate Blood Pressure O2 Sat by Pulse 95 93 L 93 L Oximetry 03/20/19 03/20/19 03/20/19 01:40 01:50 02:00 Temperature Pulse Rate 86 86 97 H Pulse Rate [ Right Radial] Respiratory 14 16 23 Rate Blood Pressure O2 Sat by Pulse 93 L 96 96 Oximetry 03/20/19 03/20/19 03/20/19 02:10 02:20 02:30 Temperature Pulse Rate 95 H 88 86 Pulse Rate [ Right Radial] Respiratory 20 14 15 Rate Blood Pressure O2 Sat by Pulse 96 91 L 98 Oximetry 03/20/19 03/20/19 03/20/19 02:40 02:50 03:00 Temperature Pulse Rate 96 H 96 H 110 H Pulse Rate [ Right Radial] Respiratory 18 17 22 Rate Blood Pressure O2 Sat by Pulse 91 L 90 L 93 L Oximetry 03/20/19 03/20/19 03/20/19 03:10 03:20 03:30 Temperature Pulse Rate 93 H 91 H 92 H Pulse Rate [ Right Radial] Respiratory 17 15 14 Rate Blood Pressure O2 Sat by Pulse 90 L 90 L 90 L Oximetry 03/20/19 03/20/19 03/20/19 03:40 03:50 03:59 Temperature Pulse Rate 93 H 89 89 Pulse Rate [ Right Radial] Respiratory 15 15 16 Rate Blood Pressure O2 Sat by Pulse 91 L 92 L 91 L Oximetry 03/20/19 03/20/19 03/20/19 04:00 04:10 04:20 Temperature 98.6 F Pulse Rate 89 96 H 90 Pulse Rate [ Right Radial] Respiratory 14 31 H Rate Blood Pressure 146/120 H O2 Sat by Pulse 95 91 L Oximetry 03/20/19 03/20/19 03/20/19 04:30 04:40 04:50 Temperature Pulse Rate 99 H 88 92 H Pulse Rate [ Right Radial] Respiratory 34 H 14 Rate Blood Pressure O2 Sat by Pulse 97 95 91 L Oximetry 03/20/19 03/20/19 03/20/19 05:00 05:10 05:20 Temperature Pulse Rate 87 95 H 88 Pulse Rate [ Right Radial] Respiratory 15 11 L Rate Blood Pressure O2 Sat by Pulse 96 96 93 L Oximetry 03/20/19 03/20/19 03/20/19 05:30 05:40 05:50 Temperature Pulse Rate 87 91 H 96 H Pulse Rate [ Right Radial] Respiratory 23 11 L 9 L Rate Blood Pressure O2 Sat by Pulse 92 L 95 91 L Oximetry 03/20/19 03/20/19 03/20/19 06:00 06:10 06:20 Temperature Pulse Rate 86 87 88 Pulse Rate [ Right Radial] Respiratory 13 13 17 Rate Blood Pressure O2 Sat by Pulse 92 L 93 L 92 L Oximetry 03/20/19 03/20/19 03/20/19 06:30 06:40 06:50 Temperature Pulse Rate 91 H 96 H 104 H Pulse Rate [ Right Radial] Respiratory 13 34 H Rate Blood Pressure O2 Sat by Pulse 94 L 93 L 92 L Oximetry 03/20/19 03/20/19 03/20/19 07:00 07:10 07:20 Temperature Pulse Rate 98 H 81 95 H Pulse Rate [ Right Radial] Respiratory 21 15 22 Rate Blood Pressure O2 Sat by Pulse 92 L 99 94 L Oximetry 03/20/19 03/20/19 03/20/19 07:30 07:40 07:50 Temperature Pulse Rate 92 H 91 H 105 H Pulse Rate [ Right Radial] Respiratory 16 15 18 Rate Blood Pressure O2 Sat by Pulse 92 L 92 L 93 L Oximetry 03/20/19 03/20/19 03/20/19 07:59 08:00 08:02 Temperature 98.6 F Pulse Rate 101 H 100 H 98 H Pulse Rate [ Right Radial] Respiratory 20 21 Rate Blood Pressure 154/85 H O2 Sat by Pulse 93 L 90 L Oximetry 03/20/19 03/20/19 03/20/19 08:10 08:20 08:30 Temperature Pulse Rate 99 H 90 92 H Pulse Rate [ Right Radial] Respiratory 20 14 15 Rate Blood Pressure O2 Sat by Pulse 93 L 93 L 91 L Oximetry 03/20/19 03/20/1919 08:40 08:50 09:00 Temperature Pulse Rate 93 H 93 H 95 H Pulse Rate [ Right Radial] Respiratory 23 17 25 H Rate Blood Pressure O2 Sat by Pulse 93 L 93 L 93 L Oximetry 03/20/19 03/20/19 03/20/19 09:10 09:20 09:30 Temperature Pulse Rate 94 H 97 H 97 H Pulse Rate [ Right Radial] Respiratory 18 20 18 Rate Blood Pressure O2 Sat by Pulse 94 L 90 L 94 L Oximetry 03/20/19 03/20/19 03/20/19 09:38 09:40 09:41 Temperature Pulse Rate 102 H 97 H 97 H Pulse Rate [ Right Radial] Respiratory 18 16 Rate Blood Pressure 129/84 117/77 O2 Sat by Pulse 94 L 93 L Oximetry 03/20/19 03/20/19 03/20/19 09:50 10:00 10:10 Temperature Pulse Rate 92 H 94 H 92 H Pulse Rate [ Right Radial] Respiratory 17 18 15 Rate Blood Pressure O2 Sat by Pulse 93 L 93 L 91 L Oximetry 03/20/19 03/20/19 10:20 10:30 Temperature Pulse Rate 84 88 Pulse Rate [ Right Radial] Respiratory 15 15 Rate Blood Pressure O2 Sat by Pulse 92 L 92 L Oximetry
[2019-03-21] MEDS: Lactated Ringer's 1,000 ML IV SCH ×2 (00:29→04:05)
[2019-03-21] MEDS: Oxycodone/Acetaminophen 5/325 mg Tab PO PRN ×3 (00:30→14:18)
[2019-03-21] MEDS: Albuterol-Ipratrop 3 mg / 0.5 (3 ml) UD IH SCH ×4 (02:30→19:51)
[2019-03-21] MEDS: HYDROmorphone 1 mg/ml ISec IVP PRN ×4 (04:21→20:47)
--- NOTE | 2019-03-21 08:19 | CP.PCM.PN ---
Subjective - Date & Time of Evaluation Date of Evaluation: 03/21/19 Time of Evaluation: 08:16 - Subjective Subjective: General Surgery Dr. Doshi Pt seen and examined @bedside. Yesterday lama removed; pt failed to void and was noted to have 800cc on bladder scan. Urology was called and lama was replaced. Otherwise no acute events overnight. Pt has no complaints this AM. pain well controlled w/ PO/IV meds. Pt denies F/C, N/V. tolerating CLD. (-)BM /Flatus. Objective - Vital Signs/Intake and Output Vital Signs (last 24 hours): Temp Pulse Resp BP Pulse Ox 98.9 F 80 20 131/83 97 03/20/19 18:10 03/20/19 18:10 03/20/19 18:10 03/20/19 18:10 03/20/19 18:10 Intake and Output: 03/21/19 03/21/19 06:59 18:59 Intake Total 240 Output Total 2600 Balance -2360 - Medications Medications: Current Medications Acetaminophen (Tylenol 325mg Tab) 650 mg PO Q6H PRN PRN Reason: Pain, Mild (1-3) Albuterol Sulfate (Albuterol 0.083% Inhal Tanisha (2.5 Mg/3 Ml) Ud) 2.5 mg IH [id number] PRN PRN Reason: Shortness of Breath Albuterol/Ipratropium (Duoneb 3 Mg/0.5 Mg (3 Ml) Ud) 3 ml IH [id number] [facility] Last Admin: 03/21/19 07:43 Dose: 3 ml Amlodipine Besylate (Norvasc) 5 mg PO BID [facility] Last Admin: 03/20/19 17:50 Dose: 5 mg Finasteride (Proscar) 5 mg PO DAILY [facility] Last Admin: 03/20/19 09:41 Dose: 5 mg Heparin Sodium (Porcine) (Heparin) 5,000 units SC Q8 [facility]; Protocol Last Admin: 03/21/19 06:45 Dose: 5,000 units Home Med (Home Med) 3 unit PO BID [facility] Last Admin: 03/20/19 17:51 Dose: 3 unit Hydromorphone HCl (Dilaudid) 1 mg IVP Q4H PRN PRN Reason: Pain, moderate (4-7) Last Admin: 03/21/19 04:21 Dose: 1 mg Lactated Ringer's (Lactated Ringer's) 1,000 mls @ 50 mls/hr IV .Q20H [facility] Last Admin: 03/21/19 04:05 Dose: Not Given Losartan Potassium (Cozaar) 50 mg PO QPM [facility] Last Admin: 03/20/19 17:50 Dose: 50 mg Ondansetron HCl (Zofran Inj) 4 mg IVP Q6 PRN PRN Reason: Nausea/Vomiting Oxycodone/Acetaminophen (Percocet 5/325 Mg Tab) 1 tab PO Q4H PRN PRN Reason: Pain, Mild (1-3) Stop: 03/23/19 09:10 Last Admin: 03/21/19 06:45 Dose: 1 tab Pantoprazole Sodium (Protonix Inj) 40 mg IVP DAILY [facility] Last Admin: 03/20/19 09:15 Dose: 40 mg Pred[facility] (Pred[facility]one Tab) [facility] Last Admin: 03/20/19 09:41 Dose: 5 mg Tacrolimus (Prograf Cap) 2 mg PO QAM [facility] Last Admin: 03/20/19 09:41 Dose: 2 mg Tacrolimus (Prograf Cap) 1 mg PO QPM [facility] Last Admin: 03/20/19 18:55 Dose: 1 mg Tamsulosin HCl (Flomax) 0.4 mg PO QPM [facility] Last Admin: 03/20/19 17:49 Dose: 0.4 mg - Labs Labs: 03/20/19 06:40 03/20/19 06:40 - Constitutional Appears: Non-toxic, No Acute Distress - Head Exam Head Exam: NORMAL INSPECTION - Eye Exam Eye Exam: Normal appearance - ENT Exam ENT Exam: Mucous Membranes Moist - Respiratory Exam Respiratory Exam: NORMAL BREATHING PATTERN. absent: Accessory Muscle Use, Respiratory Distress - Cardiovascular Exam Cardiovascular Exam: REGULAR RHYTHM. absent: Bradycardia, Tachycardia - GI/Abdominal Exam GI & Abdominal Exam: Soft, Tenderness (appropriate TTP). absent: Distended, Firm, Guarding, Rigid, Rebound Additional comments: dressing c/d/i abd binder in place OnQ in place - Extremities Exam Extremities Exam: Normal Inspection - Neurological Exam Neurological Exam: Alert, Awake, Oriented x3 - Psychiatric Exam Psychiatric exam: Normal Affect, Normal Mood - Skin Skin Exam: Dry, Intact, Normal Color, Warm Assessment and Plan - Assessment and Plan (Free Text) Assessment: 63 y/o M POD#2 s/p open transverse colectomy for colon mass, now w/ urinary retention Plan: - f/u pathology - cont CLD - cont pain management - monitor bowel fxn - f/u Urology for urinary retention and lama management - cont home medications - DVT PPx - Encourage OOB to chair/Amb/IS use Pt discussed w/ Dr. Kal Medina PGY3
[2019-03-21] MEDS: MYCOPHENOLIC ACID 180 MG PO SCH ×2 (11:09→18:13)
[2019-03-22] MEDS: Oxycodone/Acetaminophen 5/325 mg Tab PO PRN ×5 (00:39→19:52)
[2019-03-22] MEDS: Albuterol-Ipratrop 3 mg / 0.5 (3 ml) UD IH SCH ×4 (01:48→19:15)
--- NOTE | 2019-03-22 01:53 | PN ---
DATE: 03/21/2019 SUBJECTIVE: The patient has no complaints of any chest pain, no shortness of breath, no headaches. PHYSICAL EXAMINATION: VITAL SIGNS: Temperature is 99.3, pulse is 102, blood pressure 125/79 and respirations 18. GENERAL: The patient is lying in bed, flat, comfortable. HEENT: No oral lesion. Anicteric sclerae. Moist mucosa. NECK: No JVD, adenopathy, or thyromegaly. CARDIOVASCULAR: S1 and S2, regular. No murmurs, rubs, or gallops. LUNGS: Clear to auscultation bilaterally. No wheeze, rales, or rhonchi. ABDOMEN: Bowel sounds are positive, soft, nontender and nondistended. EXTREMITIES: No cyanosis, clubbing or edema. LABORATORY DATA: White count of 10.3 and hemoglobin of 10.1. Creatinine 0.7. ASSESSMENT: 1. Transverse colectomy, postoperative day number 2. 2. Urinary retention. 3. Renal cell mass. 4. Hypertension. 5. Benign prostatic hypertrophy. 6. Status post renal transplant. PLAN: The patient is currently on tacrolimus and prednisone for the renal transplant. The patient is on amlodipine for hypertension. He is going to continue with heparin for DVT prophylaxis. He is on Flomax for his BPH. The patient is on losartan for hypertension. He is on a liquid diet. I will discontinue his IV fluids. His white count is normal. His last creatinine is 0.7. He was hypomagnesemic and magnesium has been replaced. His magnesium is 1.8. Edward England MD
[2019-03-22] MEDS: HYDROmorphone 1 mg/ml ISec IVP PRN (02:29)
--- NOTE | 2019-03-22 08:31 | CP.PCM.PN ---
Subjective - Date & Time of Evaluation Date of Evaluation: 03/22/19 Time of Evaluation: 08:32 - Subjective Subjective: General Surgery: Dr Bowden Pt S&E on floor. Doing excellent, no complaints. Tolerating CLD. Denies n/v, sob, f/c. Had to have lama replaced after failing trial to void. Has been OOB and ambulating. Requesting regular food. Has not yet passed flatus or BM. Objective - Vital Signs/Intake and Output Vital Signs (last 24 hours): Temp Pulse Resp BP Pulse Ox 99.3 F 102 H 18 125/79 92 L 03/21/19 08:18 03/21/19 18:15 03/21/19 08:18 03/21/19 18:15 03/21/19 08:18 Intake and Output: 03/22/19 03/22/19 06:59 18:59 Intake Total 0 Output Total 2300 Balance -2300 - Medications Medications: Current Medications Acetaminophen (Tylenol 325mg Tab) 650 mg PO Q6H PRN PRN Reason: Pain, Mild (1-3) Albuterol Sulfate (Albuterol 0.083% Inhal Tanisha (2.5 Mg/3 Ml) Ud) 2.5 mg IH [id number] PRN PRN Reason: Shortness of Breath Albuterol/Ipratropium (Duoneb 3 Mg/0.5 Mg (3 Ml) Ud) 3 ml IH [id number] [facility] Last Admin: 03/22/19 07:28 Dose: 3 ml Amlodipine Besylate (Norvasc) 5 mg PO BID [facility] Last Admin: 03/21/19 18:15 Dose: 5 mg Finasteride (Proscar) 5 mg PO DAILY [facility] Last Admin: 03/21/19 11:11 Dose: 5 mg Heparin Sodium (Porcine) (Heparin) 5,000 units SC Q8 [facility]; Protocol Last Admin: 03/22/19 06:52 Dose: 5,000 units Home Med (Home Med) 3 unit PO BID [facility] Last Admin: 03/21/19 18:13 Dose: 3 unit Losartan Potassium (Cozaar) 50 mg PO QPM [facility] Last Admin: 03/21/19 18:12 Dose: 50 mg Ondansetron HCl (Zofran Inj) 4 mg IVP Q6 PRN PRN Reason: Nausea/Vomiting Oxycodone/Acetaminophen (Percocet 5/325 Mg Tab) 1 tab PO Q4H PRN PRN Reason: Pain, Mild (1-3) Stop: 03/23/19 09:10 Last Admin: 03/22/19 07:00 Dose: 1 tab Pantoprazole Sodium (Protonix Inj) 40 mg IVP DAILY [facility] Last Admin: 03/21/19 11:11 Dose: 40 mg Prednisone (Prednisone Tab) 5 mg PO QAM [facility] Last Admin: 03/21/19 11:10 Dose: 5 mg Tacrolimus (Prograf Cap) 2 mg PO QAM [facility] Last Admin: 03/21/19 11:11 Dose: 2 mg Tacrolimus (Prograf Cap) 1 mg PO QPM [facility] Last Admin: 03/21/19 18:16 Dose: 1 mg Tamsulosin HCl (Flomax) 0.4 mg PO QPM [facility] Last Admin: 03/21/19 18:13 Dose: 0.4 mg - Labs Labs: 03/20/19 06:40 03/20/19 06:40 - Constitutional Appears: Non-toxic, No Acute Distress - ENT Exam ENT Exam: Mucous Membranes Moist - Respiratory Exam Respiratory Exam: absent: Respiratory Distress - Cardiovascular Exam Cardiovascular Exam: REGULAR RHYTHM - GI/Abdominal Exam GI & Abdominal Exam: Soft. absent: Distended, Tenderness Additional comments: incision c/d/i - Rectal Exam Rectal Exam: Deferred - Extremities Exam Extremities Exam: absent: Pedal Edema - Neurological Exam Neurological Exam: Alert, Awake, Oriented x3 - Psychiatric Exam Psychiatric exam: Normal Affect, Normal Mood - Skin Skin Exam: Normal Color, Warm Assessment and Plan - Assessment and Plan (Free Text) Assessment: 63 y/o M POD#3 s/p open transverse colectomy for colon mass Plan: Plan: - f/u pathology - adv to regular - monitor tolerance - cont pain management - d/c IV narcotics - monitor bowel fxn - f/u Urology for urinary retention and lama management - cont home medications - DVT PPx - Encourage OOB to chair/Amb/IS use - Anticipate d/c saturday vs saturday will d/w Dr Kal Downing, PGY4
[2019-03-22] MEDS: MYCOPHENOLIC ACID 180 MG PO SCH ×2 (10:44→18:40)
--- NOTE | 2019-03-22 23:56 | PN ---
DATE: 03/22/2019 SUBJECTIVE: Mr. Galvez is a 63-year-old white male, postop transverse colon resection for an adenocarcinoma of the colon. The patient also has a renal cell carcinoma, which is operated off and right now he is a transplant recipient, history of pheochromocytoma causing renal failure many years ago and a history of nephrectomy with adrenalectomy in 1991 at formerly [facility]. The patient is postop doing well. He is sitting up. His vital signs have been stable. He is tolerating his diet well. He has not had a bowel movement. He has had no flatus at this point. PHYSICAL EXAMINATION: VITAL SIGNS: Stable. He has a low-grade fever. Temperature today is 98.8 and blood pressure 124/77. ABDOMEN: His abdomen is soft. Bowel sounds are extremely hypoactive. CHEST: Clear to auscultation and percussion. HEART: Regular sinus rhythm. LABORATORY DATA: Kidney function is normal, 15 and 0.7. His hemoglobin is 7.1. His white count is 10.3. PLAN: Continue postop care and eventually evaluate for his nephrectomy. Pranav Baltazar MD
[2019-03-23] MEDS: Oxycodone/Acetaminophen 5/325 mg Tab PO PRN ×3 (00:15→10:00)
[2019-03-23] MEDS: Albuterol-Ipratrop 3 mg / 0.5 (3 ml) UD IH SCH ×4 (01:07→19:08)
[2019-03-23] MEDS: MYCOPHENOLIC ACID 180 MG PO SCH ×2 (10:01→17:05)
--- NOTE | 2019-03-23 10:24 | CP.PCM.PN ---
Subjective - Date & Time of Evaluation Date of Evaluation: 03/23/19 Time of Evaluation: 07:30 - Subjective Subjective: General Surgery Progress note Pt seen and examined. Doing well, no complaints, pain controlled with meds. Tolerating regular diet. Denies n/v, sob, f/c. Ambulating. Has not yet passed flatus or BM. Per Pt Dr. Brown will remove lama today. Objective - Vital Signs/Intake and Output Vital Signs (last 24 hours): Temp Pulse Resp BP Pulse Ox 98.8 F 96 H 20 104/69 96 03/23/19 08:10 03/23/19 10:03 03/23/19 08:10 03/23/19 10:03 03/23/19 08:10 Intake and Output: 03/23/19 03/23/19 06:59 18:59 Intake Total 900 Output Total 3100 Balance -2200 - Medications Medications: Current Medications Acetaminophen (Tylenol 325mg Tab) 650 mg PO Q6H PRN PRN Reason: Pain, Mild (1-3) Albuterol Sulfate (Albuterol 0.083% Inhal Tanisha (2.5 Mg/3 Ml) Ud) 2.5 mg IH [id number] PRN PRN Reason: Shortness of Breath Albuterol/Ipratropium (Duoneb 3 Mg/0.5 Mg (3 Ml) Ud) 3 ml IH [id number] [facility] Last Admin: 03/23/19 07:13 Dose: 3 ml Amlodipine Besylate (Norvasc) 5 mg PO BID [facility] Last Admin: 03/23/19 10:03 Dose: Not Given Finasteride (Proscar) 5 mg PO DAILY [facility] Last Admin: 03/23/19 09:54 Dose: 5 mg Heparin Sodium (Porcine) (Heparin) 5,000 units SC Q8 [facility]; Protocol Last Admin: 03/23/19 06:24 Dose: 5,000 units Home Med (Home Med) 3 unit PO BID [facility] Last Admin: 03/23/19 10:01 Dose: 3 unit Losartan Potassium (Cozaar) 50 mg PO QPM [facility] Last Admin: 03/22/19 18:39 Dose: 50 mg Ondansetron HCl (Zofran Inj) 4 mg IVP Q6 PRN PRN Reason: Nausea/Vomiting Pantoprazole Sodium (Protonix Inj) 40 mg IVP DAILY [facility] Last Admin: 03/23/19 10:01 Dose: 40 mg Prednisone (Prednisone Tab) 5 mg PO QAM [facility] Last Admin: 03/23/19 09:54 Dose: 5 mg Tacrolimus (Prograf Cap) 2 mg PO QAM [facility] Last Admin: 03/23/19 09:53 Dose: 2 mg Tacrolimus (Prograf Cap) 1 mg PO QPM [facility] Last Admin: 03/22/19 18:38 Dose: 1 mg Tamsulosin HCl (Flomax) 0.4 mg PO QPM [facility] Last Admin: 03/22/19 18:38 Dose: 0.4 mg - Labs Labs: 03/20/19 06:40 03/20/19 06:40 - Constitutional Appears: Non-toxic, No Acute Distress - Head Exam Head Exam: ATRAUMATIC, NORMOCEPHALIC - Eye Exam Eye Exam: EOMI. absent: Scleral icterus - ENT Exam ENT Exam: Mucous Membranes Moist Additional comments: trachea midline - Neck Exam Neck Exam: Full ROM - Respiratory Exam Respiratory Exam: NORMAL BREATHING PATTERN. absent: Respiratory Distress - Cardiovascular Exam Cardiovascular Exam: absent: Bradycardia, Tachycardia - GI/Abdominal Exam GI & Abdominal Exam: Soft, Tenderness (mild at incision site). absent: Distended, Firm, Guarding, Rigid, Rebound Additional comments: incision C/D/I, lara in place - Rectal Exam Rectal Exam: Deferred - Extremities Exam Extremities Exam: absent: Calf Tenderness, Pedal Edema - Back Exam Back Exam: absent: CVA tenderness (L), CVA tenderness (R) - Neurological Exam Neurological Exam: Alert, Awake, Oriented x3 - Skin Skin Exam: Dry, Warm Assessment and Plan - Assessment and Plan (Free Text) Assessment: 63M POD#4 s/p open transverse colectomy for colon mass Plan: - f/u pathology - cont pain management - monitor bowel fxn - f/u Urology for urinary retention and lama management - cont home medications - DVT PPx - Encourage OOB to chair/Amb/IS use - Anticipate d/c Saturday D/W Dr Kal Hooks, PGY4
--- NOTE | 2019-03-23 11:23 | PN ---
DATE: 03/23/2019 SUBJECTIVE: Mr. Galvez is a 63-year-old white male status post transverse colon resection for adenocarcinoma of the colon, awaiting pathology. The patient also has a left renal mass in upper pole, possible biopsy pending. The patient has not had any flatus or bowel movements at this point. He is tolerating his diet, and has no nausea or vomiting. He has a Fontaine catheter which will be removed by Dr. Brown today. PHYSICAL EXAMINATION: CHEST: Clear to auscultation. HEART: Regular sinus rhythm. ABDOMEN: Slightly distended. Hypoactive bowel sounds. No masses. No tenderness. EXTREMITIES: Without cyanosis, clubbing, edema. Pranav Baltazar MD
--- NOTE | 2019-03-24 01:30 | OP ---
PROCEDURE DATE: 03/19/2019 SURGEON: Varun Bowden MD INDEXER: Pravin Hooks DO, PGY-4 ANESTHESIA: General endotracheal. PREOPERATIVE DIAGNOSES: Colon mass and renal mass. POSTOPERATIVE DIAGNOSES: Colon mass and renal mass. INDICATIONS: This is a 63-year-old male with past medical history of COPD, hypertension, and a history of pheochromocytoma and renal failure with a renal transplant. He has a recent colonoscopy with a colonic mass concerning for colon cancer as well as a 6 cm left renal mass. The patient was brought in for a combined partial colectomy and left radical nephrectomy. DESCRIPTION OF PROCEDURE: The patient was placed in the supine position, and general endotracheal anesthesia was induced. SCDs were placed on the lower extremities. Preoperative antibiotics were given. Fontaine catheter and NG tube were placed. The abdomen was prepped and draped in the usual sterile fashion. Timeout was completed, verified, and the correct patient, procedure, site, positioning prior to beginning this procedure. A vertical midline incision was made through his old midline scar from 4 cm below the xiphoid to just above the pubic symphysis. This was deepened through the subcutaneous tissues, and hemostasis was achieved with electrocautery. Several small hernias were identified and incised. The peritoneal cavity was entered. Further dissecting down the midline incision, a 6 x 6 mesh was encountered and subsequently removed with sharp dissection while being careful to avoid causing any injury to the underlying bowel. The abdomen was then explored. Dense adhesions were lying all along the prior surgical scar in the midline as well as in the right upper quadrant and left upper quadrant. The adhesions were lysed sharply under direct vision with Metzenbaum scissors and at times electrocautery. The colon was then palpated to see if we could identify the location of the mass. The mass had been injected with a dye, but it could not be seen due to the pericolonic fat, but the mass was able to be palpated and was found to be at the hepatic flexure. The liver, omentum, and peritoneum were all inspected for evidence of metastatic disease, but none was noted. Small bowel was inspected and retracted to the left using wet gauze. Using electrocautery and Metzenbaum scissors, the colon was free from its peritoneal attachments along the avascular line of Toldt from the cecum to the hepatic flexure. Additional lateral peritoneal coverings were incised further to mobilize the colon. The dissection was extended across the ileocolic junction, and the terminal ileum was mobilized. Near the cecum, the transplanted kidney was easily palpated and carefully dissected free from the pericecal fascia. The duodenum, right kidney, and gonadal vessels were protected, and the hepatic flexure was carefully mobilized by dividing the peritoneum in the hepatorenal fossa. Points of transection were selected proximally and distally. Proximally, at the ileocecal valve and distally at the mid transverse colon. Bowel was divided with linear cutting stapler, and peritoneum overlying the mesentery was then scored of electrocautery and the ileocolic artery was identified. Harmonic was then used to dissect out the mesentery as well as the omentum. The right branch of the middle colic was also identified and transected with the Harmonic scalpel. The remaining mesentery and all associated old tissue was divided with Harmonic scalpel and swept down with the specimen. Specimen was removed and sent to pathology. Hemostasis was checked in the operative field. Two ends of the bowel were checked and found to be viable with excellent blood supply. The proximal and distal segments were brought into apposition and found to lie comfortably next to each other. Two stay sutures of 3-0 Vicryl were placed to approximate the antimesenteric borders of the bowel segments. Enterotomies were made on the antimesenteric corner of the staple line and on the ileum and the transverse colon, and the linear cutting stapler was inserted and fired. Hemostasis was checked on the staple line. The enterotomies were then closed with linear stapler. The anastomosis was checked and found to be intact and viably patent. The mesenteric defect was then closed with a running 3-0 Vicryl suture. The abdominal cavity was then irrigated, and hemostasis was checked. At that time, the urologist was called in to evaluate the patient. The discussion was had on whether or not to continue with the radical left nephrectomy, but due to the dense adhesions all over the abdomen and the prior abdominal adrenalectomy, decision was made to discontinue the operation at that point and do a radical left nephrectomy at a later point through either a lateral incision or laparoscopically. Fascia was then closed in a running looped 0 PDS, and the skin was closed with skin lara. The patient tolerated the procedure well and was taken to the post anesthesia care unit in stable condition. At the end of the case, the instrument count was correct as per the nursing staff. SPECIMEN: Right Colon ESTIMATED BLOOD LOSS: 200 mL. DRAINS: No drains were placed. Pravin Hooks DO Varun Bowden MD MTDAlexi
[2019-03-24] MEDS: Albuterol-Ipratrop 3 mg / 0.5 (3 ml) UD IH SCH ×4 (01:51→19:55)
[2019-03-24] MEDS: Oxycodone/Acetaminophen 5/325 mg Tab PO PRN ×3 (04:33→18:38)
--- NOTE | 2019-03-24 07:22 | CP.PCM.PN ---
Subjective - Date & Time of Evaluation Date of Evaluation: 03/24/19 Time of Evaluation: :19 - Subjective Subjective: Gen Surg: Dr Bowden Pt S&E. NAEO. HAd lama removed and voided independently. Out of bed and ambulating. Tolerating regular diet. Passing flatus. Denies n/v, f/c, sob or chest pain. Prepared for discharge. Instructions provided at bedside Objective - Vital Signs/Intake and Output Vital Signs (last 24 hours): Temp Pulse Resp BP Pulse Ox 99 F 84 20 138/80 98 03/23/19 16:19 03/23/19 17:06 03/23/19 16:19 03/23/19 17:06 03/23/19 16:19 Intake and Output: 03/24/19 03/24/19 06:59 18:59 Intake Total 1500 Output Total 2800 Balance -1300 - Medications Medications: Current Medications Acetaminophen (Tylenol 325mg Tab) 650 mg PO Q6H PRN PRN Reason: Pain, Mild (1-3) Albuterol Sulfate (Albuterol 0.083% Inhal Tanisha (2.5 Mg/3 Ml) Ud) 2.5 mg IH [id number] PRN PRN Reason: Shortness of Breath Albuterol/Ipratropium (Duoneb 3 Mg/0.5 Mg (3 Ml) Ud) 3 ml IH [id number] [facility] Last Admin: 03/24/19 01:51 Dose: 3 ml Amlodipine Besylate (Norvasc) 5 mg PO BID [facility] Last Admin: 03/23/19 17:06 Dose: 5 mg Finasteride (Proscar) 5 mg PO DAILY [facility] Last Admin: 03/23/19 09:54 Dose: 5 mg Heparin Sodium (Porcine) (Heparin) 5,000 units SC Q8 [facility]; Protocol Last Admin: 03/24/19 05:27 Dose: 5,000 units Home Med (Home Med) 3 unit PO BID [facility] Last Admin: 03/23/19 17:05 Dose: 3 unit Losartan Potassium (Cozaar) 50 mg PO QPM [facility] Last Admin: 03/23/19 17:05 Dose: 50 mg Ondansetron HCl (Zofran Inj) 4 mg IVP Q6 PRN PRN Reason: Nausea/Vomiting Oxycodone/Acetaminophen (Percocet 5/325 Mg Tab) 1 tab PO Q6H PRN PRN Reason: Pain, moderate (4-7) Stop: 03/26/19 20:07 Last Admin: 03/24/19 04:33 Dose: 1 tab Pantoprazole Sodium (Protonix Ec Tab) 40 mg PO ACB [facility] Prednisone (Prednisone Tab) 5 mg PO QAM [facility] Last Admin: 03/23/19 09:54 Dose: 5 mg Tacrolimus (Prograf Cap) 2 mg PO QAM [facility] Last Admin: 03/23/19 09:53 Dose: 2 mg Tacrolimus (Prograf Cap) 1 mg PO QPM [facility] Last Admin: 03/23/19 17:04 Dose: 1 mg Tamsulosin HCl (Flomax) 0.4 mg PO QPM [facility] Last Admin: 03/23/19 17:04 Dose: 0.4 mg - Labs Labs: 03/20/19 06:40 03/20/19 06:40 - Constitutional Appears: Non-toxic, No Acute Distress - Head Exam Head Exam: NORMAL INSPECTION - Eye Exam Eye Exam: Normal appearance - ENT Exam ENT Exam: Normal Exam - Respiratory Exam Respiratory Exam: NORMAL BREATHING PATTERN - Cardiovascular Exam Cardiovascular Exam: REGULAR RHYTHM - GI/Abdominal Exam GI & Abdominal Exam: Soft, Tenderness (post op and appropriate). absent: Distended Additional comments: incision c/d/i - Rectal Exam Rectal Exam: Deferred - Extremities Exam Extremities Exam: absent: Pedal Edema - Neurological Exam Neurological Exam: Alert, Awake, Oriented x3 - Psychiatric Exam Psychiatric exam: Normal Affect, Normal Mood - Skin Skin Exam: Normal Color, Warm Assessment and Plan - Assessment and Plan (Free Text) Assessment: 63M POD #5 s/p right hemicolectomy Plan: pt doing excellent post-op OOB and ambulating clear for d/c from surgery f/u in office next week for staple removal no heavy lifting for 4-6 weeks d/w Dr Kal Downing, PGY4
[2019-03-24] MEDS ORDERED: Pantoprazole 40 mg EC Tab PO SCH (07:30)
--- NOTE | 2019-03-24 10:21 | PN ---
DATE: 03/24/2019 SUBJECTIVE: A 63-year-old white female with status post transverse colon resection colon cancer. PHYSICAL EXAMINATION: VITAL SIGNS: Stable. CHEST: Clear to auscultation and percussion. EXTREMITIES: Without cyanosis, clubbing or edema. The patient is having flatus, but no bowel movements. ABDOMEN: Soft. Bowel sounds are hypoactive, but positive. PLAN: Renal biopsy with Dr. Wilbur Skinner and we will discharge home. Pranav Baltazar MD
[2019-03-24] MEDS: MYCOPHENOLIC ACID 180 MG PO SCH (10:37)
[2019-03-24] MEDS ORDERED: Midazolam 2 MG/2 ML VIAL ONE (16:56)
[2019-03-24] MEDS ORDERED: Midazolam 2 MG/2 ML VIAL IVP ONE (17:15)
[2019-03-24] MEDS ORDERED: Sodium Chloride 0.45% 1,000 ML IV SCH (17:30)
--- NOTE | 2019-03-24 17:44 | CT ---
PROCEDURE: CT guided left renal biopsy. HISTORY: Renal transplant. 6 cm solid mass in [facility] left kidney. Evaluate for renal cell carcinoma. Previous pheochromocytoma PHYSICIAN(S): Wilbur Skinner MD. TECHNIQUE: The relative risks and indications of the procedure were explained to the patient and consent obtained. The patient was placed prone on the CT scanner and preliminary images through the kidneys obtained. Conscious sedation and monitoring were provided throughout the procedure by a nurse. The right kidney is atrophic. There is a 6 cm heterogeneous solid mass in the upper aspect of the left kidney. A left posterior approach was selected and the area prepped and draped in the usual sterile fashion. 1% Xylocaine was used to anesthetize the skin and soft tissues. A 17-gauge guiding needle was advanced into the medial and superior aspect of the left renal mass. Its position was confirmed with CT. Using coaxial technique, multiple core biopsies were obtained. The postprocedure images show no evidence of significant hemorrhage. IMPRESSION: 1. CT-guided left renal biopsy as described above.
[2019-03-24 17:45] VITALS: RESP 17; TEMP 98.2; O2SAT 98
[2019-03-24 17:57] VITALS: BP 111/74; PULSE 82
== END 2019-03-24 22:01 | disposition home or self-care (01) | DRG 330 ==
LOC: SDS 06:16 → CCU 12:21 → 3RNO 03-20 11:09
PROVIDERS: ADMIT Internal Medicine; ATTEND Internal Medicine
PROC: 0DTL0ZZ Resection of Transverse Colon, Open Approach (ICD-10-PCS; principal; 2019-03-19 08:00)
PROC: 0T9B70Z Drainage of Bladder with Drainage Device, Via Natural or Artificial Opening (ICD-10-PCS; 2019-03-20)
PROC: 0TB13ZX Excision of Left Kidney, Percutaneous Approach, Diagnostic (ICD-10-PCS; 2019-03-24)
DX: C18.4 Malignant neoplasm of transverse colon (principal); C64.9 Malignant neoplasm of unspecified kidney, except renal pelvis; Z94.0 Kidney transplant status; N18.9 Chronic kidney disease, unspecified; I12.9 Hypertensive chronic kidney disease with stage 1 through stage 4 chronic kidney disease, or unspecified chronic kidney disease; K66.0 Peritoneal adhesions (postprocedural) (postinfection); N40.1 Benign prostatic hyperplasia with lower urinary tract symptoms; R33.8 Other retention of urine; J44.9 Chronic obstructive pulmonary disease, unspecified; D35.02 Benign neoplasm of left adrenal gland; E78.5 Hyperlipidemia, unspecified; E83.42 Hypomagnesemia; Z79.899 Other long term (current) drug therapy; Z87.891 Personal history of nicotine dependence